=== PATIENT | female | born 1935 | race Caucasian/White ===

== ENCOUNTER 2020-04-10 02:22 | Observation (INO) | payer MEDICARE, OTHER, SELFPAY ==
[2020-04-10] VITALS (9 sets, daily range): BP systolic 124–154; BP diastolic 55–90; PULSE 62–89; RESP 15–20; TEMP 36.1–36.9; O2SAT 95–100; BMI 28.6
--- NOTE | ~2020-04-10 | CT_ITS ---
EXAMINATION: CT abdomen pelvis w con DATE: 04/10/2020 06:11 INDICATION: Rectal bleeding TECHNIQUE: Computed tomography (CT) of the abdomen and pelvis was performed with 100 cc Omnipaque 350 intravenous contrast. The dose-length product was 479.02 mGy-cm. Automated exposure control and iter ative reconstruction technique were employed. COMPARISON: CT dated 05/01/2016 FINDINGS: Cardiomegaly. There is atherosclerosis. Bibasilar dependent atelectasis. No evidence for ao rtic aneurysm. The liver, spleen, pancreas, adrenal glands are unremarkable. Gallbladder is present. There are bilat eral renal cysts, largest in the right kidney measuring 2.1 cm. Gallbladder is present. There is abno rmal thickening of the stomach, suspicious for gastritis. There is a discrete rectal artery entering the mucosa which may represent superior rectal artery iker ing from the inferior mesenteric artery. This could be a source of rectal hemorrhage. There is a soft tissue nodule in the right gluteal fold, nonspecific. Tiny sclerotic lesion right ilium, likely bone island. IMPRESSION: 1. Abnormal thickening of the gastric wall, suspicious for gastritis. 2: Discrete rectal artery entering the mucosa which may represent superior rectal artery arising from the inferior mesenteric artery. This could be a source of rectal hemorrhage. Reviewed, dictated and finalized at location A. IMPRESSION: 1. Abnormal thickening of the gastric wall, suspicious for gastritis. 2: Discrete rectal artery entering the mucosa which may represent superior rect al artery arising from the inferior mesenteric artery. This could be a source o f rectal hemorrhage.
--- NOTE | 2020-04-10 02:35 | ED.GENADULT ---
HPI - General Adult General Chief complaint: Unspecified <Scotty Caraballo MD - Last Filed: 04/13/20 14:14> Stated complaint: hematuria <Scotty Caraballo MD - Last Filed: 04/13/20 14:14> Time Seen by Provider: 04/10/20 02:35 <Scotty Caraballo MD - Last Filed: 04/13/20 14:14> History of Present Illness HPI narrative: 84 yo female presents from home for hematuria. She reports that she has noticed blood in her urine the past couple of days. Tonight there was more. She reports urinary frequency, which is normal for her. No dyuria, hematuria. She is on xarelto. <Scotty Caraballo MD - Last Filed: 04/13/20 14:14> Related Data Home medications: Home Medications Medication Instructions Recorded Confirmed ascorbic acid (vitamin C) 500 mg 500 mg PO DAILY 08/14/19 04/10/20 capsule,extended release calcium carbonate-vitamin D3 600 600 tablet PO DAILY 08/14/19 04/10/20 mg(1,500 mg)-400 unit chewable tablet cholecalciferol (vitamin D3) 25 1,000 unit PO DAILY 08/14/19 04/10/20 mcg (1,000 unit) capsule magnesium 200 mg tablet 200 mg PO DAILY 08/14/19 04/10/20 metoprolol succinate 50 mg 50 mg PO DAILY 08/14/19 04/10/20 tablet,extended release 24 hr rivaroxaban 20 mg tablet 20 mg PO QPM 08/14/19 04/10/20 ferrous sulfate 325 mg PO BID 04/10/20 04/10/20 furosemide 20 mg PO DAILY 04/10/20 04/10/20 <Scotty Caraballo MD - Last Filed: 04/13/20 14:14> Allergies/adverse reactions: Allergies Allergy/AdvReac Type Severity Reaction Status Date / Time memantine Allergy Unknown Unknown Verified 04/10/20 12:17 <Scotty Caraballo MD - Last Filed: 04/13/20 14:14> Review of Systems Review of Systems: All systems reviewed & are unremarkable except as noted in HPI and below <Scotty Caraballo MD - Last Filed: 04/13/20 14:14> Constitutional: Constitutional: Denies fever(s) <Scotty Caraballo MD - Last Filed: 04/13/20 14:14> Cardiovascular: Cardiovascular: Denies chest pain <Scotty Caraballo MD - Last Filed: 04/13/20 14:14> Respiratory: Respiratory: Denies dyspnea <Scotty Caraballo MD - Last Filed: 04/13/20 14:14> Gastrointestinal: Gastrointestinal: Denies abdominal pain and Denies nausea <Scotty Caraballo MD - Last Filed: 04/13/20 14:14> Neurologic: Denies dizziness and Denies weakness <Scotty Caraballo MD - Last Filed: 04/13/20 14:14> [facility] Past Medical History Medical History: Medical History (Updated 04/11/20 @ 14:13 by Anne Chauhan PA-C) Afib Chronic diastolic CHF (congestive heart failure) Essential (primary) hypertension History of breast cancer History of gastric ulcer Iron deficiency anemia <Scotty Caraballo MD - Last Filed: 04/13/20 14:14> Surgical History Surgical History: Surgical History (Updated 04/10/20 @ 14:55 by Eleonora Narayan NP) H/O cataract extraction History of appendectomy History of hysterectomy History of left mastectomy History of tonsillectomy and adenoidectomy <Scotty Caraballo MD - Last Filed: 04/13/20 14:14> Family History Family History: Family History (Updated 04/10/20 @ 14:56 by Eleonora Narayan NP) Father Congestive heart failure Heart disease <Scotty Caraballo MD - Last Filed: 04/13/20 14:14> Social History Social History: Social History (Updated 04/10/20 @ 15:01 by Eleonora Narayan NP) Social History: the patient lives at [facility] living with her . Her is listed as a durable power commonwealth attorney for healthcare as well as her daughter. The patient has a modified code where she will allow CPR but does not want to be on a ventilator she is a DNI. 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 She is a lifelong nonsmoker no alcohol marijuana or illicit drugs. Smoking status: Never smoker Second hand tobacco smoke exposure: No Alcohol intake: never Substance use: never Substance use ty
[2020-04-10 03:19] LABS: Add Urine Microscopic? YES; Appearance Urine Clear (Clear); Bilirubin Urine Negative (Negative); Blood Urine Negative (Negative); Color Urine Yellow (Yellow); Glucose Urine UA Negative (Negative); Ketones Urine Negative (Negative); Leukocyte Esterase Ur Negative LEU/UL (Negative); Nitrate Urine Negative (Negative); Protein Urine Negative (Negative); Specific Grav Ur 1.014 (1.001-1.035); Squamous Epithelial Cell Urine Rare /hpf (Few); Urobilinogen Urine Negative mg/dL (<2.0); WBC Urine 0-3 /hpf
[2020-04-10 04:04] LABS: Basophils Absolute Auto 0.1 K/mm3 (0.0-0.1); Basophils Percent Auto 0.8 % (0.2-1.2); Eosinophils Absolute Auto 0.2 K/mm3 (0-0.3); Eosinophils Percent Auto 3.8 % (0-4.4); Hematocrit 39.5 % (37.0-47.0); Hemoglobin 13.4 g/dL (12.0-15.0); Immature Granulocyte Absolute 0.02 K/mm3 (0.00-0.031); Immature Granulocyte Percent A 0.3 % (0-0.5); Lymphocytes Absolute Auto 0.78 K/mm3 (0.9-3.2); Lymphocytes Percent Auto 12.9 % (18.3-44.2); Mean Corpuscular HGB Conc 33.9 g/dl (32-36); Mean Corpuscular Hemoglobin 30.5 pg (26-34); Mean Platelet Volume 9.3 fl (7.4-10.4); Monocytes Percent Auto 16.6 % (2.6-8.5); Neutrophils Percent Auto 65.6 % (45.5-73.1); Platelet Count Result 214 k/mm3 (150-375); Red Blood Count 4.39 M/mm3 (4.2-5.4); White Blood Count 6.1 K/mm3 (4.5-10.0)
[2020-04-10 04:15] LABS: INR 2.6; Prothrombin Time 27.1 Seconds (11.1-14.7)
[2020-04-10 04:16] LABS: Partial Thromboplastin Time 41.9 SECONDS (22.3-36.8)
[2020-04-10 04:29] LABS: Anion Gap 4 mmol/L (8-16); Blood Urea Nitrogen 21 mg/dL (7-17); Calcium 8.9 mg/dL (8.4-10.2); Carbon Dioxide 25 mmol/L (22-30); Chloride 100 mmol/L (98-107); Estimated CRCL calculation 40 ml/min; Estimated Glomerular Filt Rate > 60; Glucose 107 mg/dL (65-105); Potassium 4.1 mmol/L (3.4-5.0); Sodium 129 mmol/L (137-145)
[2020-04-10] MEDS: PANTOPRAZOLE SODIUM IV 40 MG VIAL IV PUSH (10:03)
--- NOTE | 2020-04-10 10:07 | WPDGICN ---
Assessment and Plan Assessment and plan (1) Rectal bleeding: Code(s): K62.5 - Hemorrhage of anus and rectum Status: Acute Assessment and Plan: Patient has rectal bleeding. Known to have hemorrhoids. Likely this is aggravated by or Xarelto anticoagulation. Plan is to hold Xarelto. Continue monitor hemoglobin. Elective colonoscopy is advised after she is no longer on anticoagulation. Particular because of the unusual CT scan report (2) Afib: Code(s): I48.91 - Unspecified atrial fibrillation Status: Acute (3) Current use of correction anticoagulation: Code(s): Z79.01 - intermodal truck driver (current) use of anticoagulants Status: Acute GI Consult Note Consult date/time: 04/10/20 10:07 HPI: Annamarie Belle is a 84 year old female I am asked to see for hematochezia. Patient reports over the last 2-3 days that when she has a bowel movement and urinates the toilet bowl as red. She initially was unsure whether this emanated from her rectum or from the urine. She denies any abdominal or rectal pain. In the past she has had occasional bright red blood per rectum attributed to hemorrhoids. She states this persisted longer than that. She describes it as bright red. She does have an underlying history of atrial fibrillation for which she is chronically on Xarelto anticoagulation. In the emergency room a CT scan was performed which raise the question of a rectal prominent rectal artery Her hemoglobin was noted to be normal. Review of Systems Review of Systems: All systems reviewed & are unremarkable except as noted in HPI and below PMFSH Past Medical History Medical History Afib History of breast cancer Iron deficiency anemia Surgical History Surgical History History of hysterectomy History of left mastectomy Family History Family History Father Family history of coronary artery disease Social History Social History Smoking status: Never smoker Tobacco type: cigarettes Second hand tobacco smoke exposure: No Alcohol intake: never Substance use: never Substance use type: does not use Gender identity (if verbalized by the patient): Female Meds Home Medications and Allergies Home Medications Medication Instructions Recorded Confirmed Type ascorbic acid (vitamin C) 500 mg 500 mg PO DAILY 08/14/19 History capsule,extended release calcium carbonate-vitamin D3 600 tablet PO 08/14/19 History mg(1,500 mg)-400 unit chewable tablet cholecalciferol (vitamin D3) 25 1,000 unit PO DAILY 08/14/19 History mcg (1,000 unit) capsule magnesium 200 mg tablet 200 mg PO DAILY 08/14/19 History metoprolol succinate 50 mg 50 mg PO DAILY 08/14/19 History tablet,extended release 24 hr rivaroxaban 20 mg tablet 20 mg PO QPM 08/14/19 History potassium chloride 20 mEq 20 meq PO DAILY #90 tablet 10/31/19 Rx tablet,extended release(part/cryst) ferrous sulfate 324 mg (65 mg 324 mg PO DAILY #60 tablet 01/26/20 Rx iron) tablet,delayed release furosemide 20 mg tablet See Rx Instructions .ROUTE 01/27/20 Rx .COMPLEX #90 tablet omeprazole 20 mg tablet,delayed 20 mg PO DAILY #90 tablet 03/15/20 Rx release Allergies Allergy/AdvReac Type Severity Reaction Status Date / Time memantine Allergy Unknown Unknown Verified 02/20/20 09:59 Vital Signs Vital Signs - 24 hr 04/10/20 02:22 04/10/20 04:26 04/10/20 07:12 Temperature 98.4 F Pulse Rate 67 62 79 Respiratory Rate 16 16 20 Blood Pressure 138/55 L 124/68 141/86 H Pulse Oximetry 96 97 95 04/10/20 09:02 04/10/20 10:04 Temperature Pulse Rate 89 70 Respiratory Rate 20 20 Blood Pressure 154/90 H 142/72 H Pulse Oximetry 96 95 Exam Narrative: Exam Narrative: Physic
[2020-04-10 10:30] LABS: Hematocrit 42.7 % (37.0-47.0); Hemoglobin 14.6 g/dL (12.0-15.0)
--- NOTE | 2020-04-10 11:40 | ADMGEN ---
This patient, Annamarie Belle, was admitted to 2 Medical Room 260-. Patient/family oriented to hospital policies and general routines including ID bracelet, bed and alarms, visiting hours, pain management, procedures, bathroom and other care routines, personal items, smoking policy, room service/diet, and visiting hours. Valuables list has been completed. Information on how to activate the Rapid Response Team has been discussed. Patient/Family are encouraged to report perceived risks to care and to ask questions if they do not understand what they are told or what they should do.
[2020-04-10] MEDS: SODIUM CHLORIDE 0.9% IV 1,000 ML 125 ML IV CONT ×2 (11:45→20:54)
--- NOTE | 2020-04-10 14:45 | PM.IMHP ---
H&P: HPI History of Present Illness Date/Time: 04/10/20 14:45 Chief complaint: Rectal bleed Narrative: Annamarie Belle is a 84 year old female Who stated that she has had a history of having hemorrhoids in the past. she stated that she has not had a colonoscopy and does not want a colonoscopy. She stated that she stooled have colonoscopy. The patient stated that she had 3-4 bright red bloody stools over the last 24 hours. She said that she has had bleeding from her hemorrhoids in the past but has not had this much blood from her hemorrhoids in the past. She said that when she sat down to urinate that the blood was just pouring out of her from her rectum. It was going down her legs. The patient's H&H remains the same it is within normal limits. Vital signs are stable with last reading being 145/67. GI consult so was placed and Dr. talbot has seen her already and has noted that he feels that this most likely is due to her hemorrhoids. The patient had a CT of her abdomen and pelvis which was read per Radiology as abnormal thickening of the gastric wall suspicious for gastritis. Discrete rectal artery entering the mucosa which may represent superior rectal arterial arising from the inferior mesenteric artery. This could be a source of rectal hemorrhage. It was were reported to me that GI consult had been aware of this CT scan. Patient was started on IV Pepcid and has not had any further bleeding. The patient is a full code with a DNI and she stated she does not want any invasive procedures either. She stated she would not want a central line nor which she want a colonoscopy either. The patient has been on Xarelto for AFib and that is currently on hold. She is on a clear liquid diet and tolerating it well. Patient is being admitted as observation to medical floor date of service is 04/10/2020 Review of Systems Review of Systems: All systems reviewed & are unremarkable except as noted in HPI and below Constitutional: Constitutional: Reports as per HPI and Reports no additional constitutional complaints Eyes: Eyes: Reports as per HPI and Reports no additional eye complaints ENT: Reports system reviewed and no additional complaints, except as documented and Reports Normal hearing present Cardiovascular: Cardiovascular: Reports no additional cardiovascular complaints Respiratory: Respiratory: Reports no additional respiratory complaints and Reports no additional respiratory complaints Gastrointestinal: Gastrointestinal: Reports as per HPI and Reports no additional gastrointestinal complaints Musculoskeletal: Musculoskeletal: Reports no additional musculoskeletal complaints Integumentary/Breasts: Skin/Breast: Reports system reviewed and no additional complaints, except as docu and Reports as per HPI Neurologic: Reports system reviewed and no additional complaints, except as documented, Reports as per HPI and Reports Normal hearing present Psychiatric: Psychiatric: Reports no additional psychiatric complaints and Reports as per HPI Endocrine: Endocrine: Reports no additional endocrine complaints Hematologic/Lymphatic: Hematologic/Lymphatic: Reports no additional hematologic/lymphatic complaints Allergic/Immunologic: Allergic/Immunologic: Reports no additional allergic/immunologic complaints [facility] Past Medical History Medical History (Updated 04/10/20 @ 14:55 by Eleonora Narayan NP) Afib Chronic diastolic CHF (congestive heart failure) Essential (primary) hypertension History of breast cancer History of gastric ulcer Iron deficiency anemia Surgical History Surgical History (Updated 04/10/20 @ 14:55 by Eleonora Narayan NP) H/O cataract extraction History of appendectomy History of hysterectomy History of left mastectomy History of tonsillectomy and adenoidectomy Family History Family History (Updated 04/10/20 @ 14:56 by Eleonora Narayan NP) Father Congestive heart failure Heart disease Social History
[2020-04-10 16:06] LABS: Hematocrit 39.5 % (37.0-47.0); Hemoglobin 13.5 g/dL (12.0-15.0)
[2020-04-10 21:58] LABS: Hematocrit 37.9 % (37.0-47.0); Hemoglobin 13.1 g/dL (12.0-15.0)
--- NOTE | 2020-04-10 23:45 | PC.NURSE ---
Patient c/o needing attention and doesn't like being in the room alone. I have made multiple attempts to make her feel comfortable and be in the room when I can. I have made her aware that she is in a private room and it is night time in the hospital with generally less people and noise as there is during the day. She continues to ask for me and abril Go to stay in the room with her. While I won't be able to remain in the room at all times I will continue to make efforts to make sure she doesn't feel alone while she is here.
[2020-04-11] MEDS: SODIUM CHLORIDE 0.9% IV 1,000 ML 125 ML IV CONT ×3 (04:40→23:06)
[2020-04-11 04:55] LABS: Hemoglobin 12.9 g/dL (12.0-15.0)
[2020-04-11 05:42] LABS: Alanine Aminotransferase 18 U/L (4-35); Albumin Level 3.2 g/dL (3.5-5.1); Alkaline Phosphatase 63 U/L (38-126); Anion Gap 8 mmol/L (8-16); Aspartate Amino Transferase 23 U/L (14-36); Bilirubin,Total 1.3 mg/dL (0.2-1.3); Blood Urea Nitrogen 10 mg/dL (7-17); Calcium 8.6 mg/dL (8.4-10.2); Carbon Dioxide 22 mmol/L (22-30); Chloride 104 mmol/L (98-107); Estimated CRCL calculation 58 ml/min; Estimated Glomerular Filt Rate > 60; Glucose 123 mg/dL (65-105); Lactate Dehydrogenase 279 U/L (313-618); Magnesium 1.9 mg/dL (1.6-2.3); Potassium 3.8 mmol/L (3.4-5.0); Sodium 134 mmol/L (137-145)
[2020-04-11 06:00] VITALS: BP 149/72; PULSE 79; RESP 18; TEMP 36.6; O2SAT 98
[2020-04-11 08:01] VITALS: PULSE 84
[2020-04-11] MEDS: METOPROLOL SUCCINATE EXT REL 50 MG TABCR PO (08:01)
[2020-04-11] MEDS: PANTOPRAZOLE SODIUM IV 40 MG VIAL IV PUSH (08:01)
--- NOTE | 2020-04-11 08:58 | WPDGIPROGNO ---
Progress Note: A&P Additional Plan Patient continues to notice rectal bleeding. She denies abdominal pain. Angry that she has not been allowed to eat. Physical exam reveals her to be alert and comfortable at rest. She is anicteric. Lungs are clear. Heart without murmur. Abdomen bowel sounds are present soft nontender with no organomegaly. Rectal without any significant lesions. Labs reveal hemoglobin 12.9, hematocrit 38, MCV 90. All stable. Impression 1. Rectal bleeding. Patient known to have hemorrhoids this is most likely etiology for bleeding. Bleeding aggravated by Xarelto anticoagulation. Hemoglobin remains normal. I have advised patient evaluation with colonoscopy would be preferred. She adamantly refuses this at present. 2. Prominent rectal artery seen on CT scan . may be a spurious finding. By itself is not pathological. But perhaps contributes to some of her bleeding. 3. Xarelto anticoagulation. Because of atrial fibrillation. Xarelto should be held because of significant bleeding at this time. Subjective Date/time seen: 04/11/20 08:58 Objective Data Vital Signs Vital Signs: Vital Signs - 24 hr 04/10/20 09:02 04/10/20 10:04 04/10/20 11:20 Temperature Pulse Rate 89 70 70 Respiratory Rate 20 20 20 Blood Pressure 154/90 H 142/72 H 142/72 H Pulse Oximetry 96 95 95 04/10/20 12:20 04/10/20 14:00 04/10/20 22:00 Temperature 97.1 F L 97.6 F 97.0 F L Pulse Rate 72 72 79 Respiratory Rate 16 15 18 Blood Pressure 145/67 H 145/76 H 154/72 H Pulse Oximetry 100 98 98 04/11/20 06:00 04/11/20 08:01 Temperature 97.8 F Pulse Rate 79 84 Respiratory Rate 18 Blood Pressure 149/72 H Pulse Oximetry 98 Intake/Output Intake/Output: Intake & Output 04/08/20 04/09/20 04/10/20 04/11/20 23:59 23:59 23:59 23:59 Intake Total 1900 1500 Output Total 1300 Balance 1900 200 Meds/Results Medications: Active Medications Generic Name Dose Route Start Last Admin Trade Name Freq PRN Reason Stop Dose Admin Acetaminophen 1,000 mg in 100 mls @ 400 mls/hr 04/10/20 09:41 Ofirmev 1,000 Mg Ivpb IVPB 04/11/20 09:42 Q6H PRN Mild Pain (1-3) or Fever Sodium Chloride 1,000 mls @ 125 mls/hr 04/10/20 09:45 04/11/20 04:40 Normal Saline Iv IV CONT 125 mls/hr .Q8H MARIO Administration Metoprolol Succinate 50 mg 04/11/20 09:00 04/11/20 08:01 Metoprolol Succinate Ext Rel 50 Mg Tabcr PO 50 mg DAILY MARIO Administration Pantoprazole Sodium 40 mg 04/11/20 09:00 04/11/20 08:01 Pantoprazole Sodium Iv 40 Mg Vial IV PUSH 40 mg QAM MARIO Administration Radiology Results: ITS Impressions Abdomen/Pelvis CT 04/10/20 08:19 IMPRESSION: 1. Abnormal thickening of the gastric wall, suspicious for gastritis. 2: Discrete rectal artery entering the mucosa which may represent superior rectal artery arising from the inferior mesenteric artery. This could be a source of rectal hemorrhage. Labs Labs: Laboratory Results - last 24 hr 04/10/20 04/10/20 04/10/20 10:21 15:46 21:46 Hgb 14.6 13.5 13.1 Hct 42.7 39.5 37.9 Sodium Potassium Chloride Carbon Dioxide Anion Gap BUN Creatinine Estim Creat Clear Calc Estimated GFR Glucose Calcium Magnesium Ferritin Total Bilirubin AST ALT Alkaline Phosphatase Lactate Dehydrogenase Total Protein Albumin TSH (Reflex) 04/11/20 04/11/20 04/11/20 04:06 04:06 04:06 Hgb 12.9 Hct 38.0 Sodium 134 L Potassium 3.8 Chloride 104 Carbon Dioxide 22 Anion Gap 8 BUN 10 D Creatinine 0.60 L Estim Creat Clear Calc 58 Estimated GFR > 60 Glucose 123 H Calcium 8.6 Magnesium 1.9 Ferritin 33.80 Total Bilirubin 1.3 AST 23 ALT 18 Alkaline Phosphatase 63 Lactate Dehydrogenase 279 L Total Protein 6.0 L Albumin 3.2 L TSH (Reflex) 1.630
--- NOTE | 2020-04-11 12:47 | PM.IMPN ---
Progress Note: A&P Assessment and Plan (1) Rectal bleeding: Code(s): K62.5 - Hemorrhage of anus and rectum Status: Acute Assessment and Plan: Patient presents with bright red blood per rectum. She has a known history of hemorrhoids. Suspect this is contributing to bleeding. She is on long-term anticoagulation with Xarelto for A fib, which is on hold at this time. Patient is stable for discharge. Hemoglobin has remained quite stable. She has been seen by GI - appreciate Dr Calderon's input. Patient adamantly declines colonoscopy. I have nothing further to offer her in the hospital at this time. She can follow up with Dr Calderon outpatient for colonoscopy should she change her mind. She needs COVID testing prior to discharging back to her facility so she will have to stay overnight; anticipate discharge tomorrow. (2) Essential (primary) hypertension: Code(s): I10 - Essential (primary) hypertension Status: Chronic Assessment and Plan: BP is stable. Continue her home metoprolol. Monitor BP and adjust treatment as needed. (3) Chronic diastolic CHF (congestive heart failure): Code(s): I50.32 - Chronic diastolic (congestive) heart failure Status: Chronic Assessment and Plan: Appears euvolemic at this time. Continue her home beta-blockade and Lasix. Monitor I&Os. (4) Afib: Qualifiers: Atrial fibrillation type: unspecified chronic Qualified Code(s): I48.20 - Chronic atrial fibrillation, unspecified Code(s): I48.91 - Unspecified atrial fibrillation Status: Chronic Assessment and Plan: Chronic AFib rate controlled on her home metoprolol. Xarelto is held due to rectal bleeding. Subjective Date/time seen: 04/11/20 0915 Interval history: Ms. Belle is an 84yo F admitted for rectal bleeding. She is feeling well today but did have some bleeding with a bowel movement this morning. She denies dizziness, lightheadedness, nausea, vomiting or abdominal pain. She was able to tolerate some clear liquids for breakfast this morning without issues. She denies chest pain or shortness of breath. She is able to answer all of my questions appropriately but does seem to have some degree of short-term memory deficit in casual conversation. Review of Systems Review of Systems: All systems reviewed & are unremarkable except as noted in HPI and below Exam Narrative: Exam Narrative: General: Elderly female resting sitting up in bed in no acute distress. HEENT: Normocephalic, EOMI, oral mucosa moist. Cardiovascular: Rate and rhythm are regular. Respiratory: Lungs clear to auscultation in all wilson. Non-labored breathing. Abdomen: Soft, non-tender, non-distended, bowel sounds present. Extremities: Peripheral pulses intact. 1+ pitting edema to ADWOA lower extremities below the knees. Neuro: No focal neurological deficits. Speech is clear. Objective Data Vital Signs Vital Signs: Last Vital Signs Temp 97.8 F 04/11/20 06:00 Pulse 84 04/11/20 08:01 Resp 18 04/11/20 06:00 BP 149/72 H 04/11/20 06:00 Pulse Ox 98 04/11/20 06:00 Intake/Output Intake/Output: Intake & Output 04/08/20 04/09/20 04/10/20 04/11/20 23:59 23:59 23:59 23:59 Intake Total 1900 2220 Output Total 1300 Balance 1900 920 Meds/Results Medications: Active Medications Generic Name Dose Route Start Last Admin Trade Name Freq PRN Reason Stop Dose Admin Sodium Chloride 1,000 mls @ 125 mls/hr 04/10/20 09:45 04/11/20 04:40 Normal Saline Iv IV CONT 125 mls/hr .Q8H MARIO Administration Metoprolol Succinate 50 mg 04/11/20 09:00 04/11/20 08:01 Metoprolol Succinate Ext Rel 50 Mg Tabcr PO 50 mg DAILY MARIO Administration Pantoprazole Sodium 40 mg 04/11/20 09:00 04/11/20 08:01
[2020-04-11 14:00] VITALS: BP 140/73; PULSE 66; RESP 15; TEMP 36.9; O2SAT 97
[2020-04-11] MEDS: FERROUS SULFATE 324 MG TABLET PO (17:01)
[2020-04-11 22:00] VITALS: BP 153/76; PULSE 63; RESP 18; TEMP 36.1; O2SAT 98
--- NOTE | 2020-04-12 05:17 | PC.NURSE ---
Patient continues to have multiple anxious complaints. She is aware of where she is only some of the time and thinks we are keeping her here and refuses to let me help her dial phone calls to family members. Patient states that we are doing something to the phones and not allowing her to use them. I have tried to help her multiple times with no success. She is up to the chair, with a chair alarm, now because she refused to lay in bed and continued to set her alarm off. I will continue to monitor her and make sure she is safe and as comfortable as I can.
[2020-04-12 05:44] LABS: Basophils Absolute Auto 0.1 K/mm3 (0.0-0.1); Basophils Percent Auto 0.8 % (0.2-1.2); Eosinophils Absolute Auto 0.2 K/mm3 (0-0.3); Eosinophils Percent Auto 2.7 % (0-4.4); Hematocrit 38.4 % (37.0-47.0); Hemoglobin 13.1 g/dL (12.0-15.0); Immature Granulocyte Absolute 0.06 K/mm3 (0.00-0.031); Immature Granulocyte Percent A 0.9 % (0-0.5); Lymphocytes Absolute Auto 0.67 K/mm3 (0.9-3.2); Lymphocytes Percent Auto 10.5 % (18.3-44.2); Mean Corpuscular HGB Conc 34.1 g/dl (32-36); Mean Corpuscular Hemoglobin 30.7 pg (26-34); Mean Corpuscular Volume 89.9 fl (80-100); Mean Platelet Volume 9.3 fl (7.4-10.4); Monocytes Absolute Auto 0.8 K/mm3 (0.1-0.6); Monocytes Percent Auto 12.3 % (2.6-8.5); Neutrophils Absolute Auto 4.7 K/mm3 (1.3-6.7); Neutrophils Percent Auto 72.8 % (45.5-73.1); Platelet Count Result 220 k/mm3 (150-375); Red Blood Count 4.27 M/mm3 (4.2-5.4); Red Cell Distribution Width 14.2 % (11.5-14.5); White Blood Count 6.4 K/mm3 (4.5-10.0)
[2020-04-12 06:00] VITALS: BP 148/67; PULSE 77; RESP 18; TEMP 36.7; O2SAT 98
[2020-04-12] MEDS: SODIUM CHLORIDE 0.9% IV 1,000 ML 125 ML IV CONT (07:53)
[2020-04-12 08:00] VITALS: PULSE 64
[2020-04-12] MEDS: FERROUS SULFATE 324 MG TABLET PO (08:00)
[2020-04-12] MEDS: MAGNESIUM OXIDE 200 MG TABLET PO (08:00)
[2020-04-12] MEDS: PANTOPRAZOLE SODIUM IV 40 MG VIAL IV PUSH (08:00)
[2020-04-12] MEDS: FUROSEMIDE 20 MG TABLET PO (08:00)
[2020-04-12] MEDS: METOPROLOL SUCCINATE EXT REL 50 MG TABCR PO (08:00)
--- NOTE | 2020-04-12 11:00 | WPDGIPROGNO ---
Progress Note: A&P Additional Plan Patient continues to note rectal bleeding. Occasional bright red blood per rectum with bowel movement. She denies any abdominal or rectal pain. Physical exam reveals abdomen to be soft nontender with no organomegaly. Digital rectal exam unremarkable. Labs reveal hemoglobin stable. Hemoglobin 13.1, hematocrit 38.4, MCV 89. Impression 1. Rectal bleeding. Clinically suspicious for hemorrhoids. Patient unwilling to undergo colonoscopy. Currently has stable and normal hematocrit. Long discussion with patient today regarding colonoscopy to further define source of bleeding as well as for treatment. She continues to refuse at this time. Plan for high-fiber diet. Hemorrhoidal creams will have limited benefit for rectal bleeding from hemorrhoids. Suggest monitoring hemoglobin intermittently. Should patient agree to a colonoscopy this can be arranged electively as an outpatient. Subjective Date/time seen: 04/12/20 11:00 Objective Data Vital Signs Vital Signs: Vital Signs - 24 hr 04/11/20 14:00 04/11/20 22:00 04/12/20 06:00 Temperature 98.4 F 96.9 F L 98.0 F Pulse Rate 66 63 77 Respiratory Rate 15 18 18 Blood Pressure 140/73 153/76 H 148/67 H Pulse Oximetry 97 98 98 04/12/20 08:00 Temperature Pulse Rate 64 Respiratory Rate Blood Pressure Pulse Oximetry Intake/Output Intake/Output: Intake & Output 04/09/20 04/10/20 04/11/20 04/12/20 23:59 23:59 23:59 23:59 Intake Total 1900 4730 1440 Output Total 2350 150 Balance 1900 2380 1290 Meds/Results Medications: Active Medications Generic Name Dose Route Start Last Admin Trade Name Francisq PRN Reason Stop Dose Admin Ferrous Sulfate 324 mg 04/11/20 17:00 04/12/20 08:00 Ferrous Sulfate 324 Mg Tablet PO 324 mg BID MARIO Administration Furosemide 20 mg 04/12/20 09:00 04/12/20 08:00 Furosemide 20 Mg Tablet PO 20 mg DAILY MARIO Administration Sodium Chloride 1,000 mls @ 125 mls/hr 04/10/20 09:45 04/12/20 07:53 Normal Saline Iv IV CONT 125 mls/hr .Q8H MARIO Administration Magnesium Oxide 200 mg 04/12/20 09:00 04/12/20 08:00 Magnesium Oxide 200 Mg Tablet PO 200 mg DAILY MARIO Administration Metoprolol Succinate 50 mg 04/11/20 09:00 04/12/20 08:00 Metoprolol Succinate Ext Rel 50 Mg Tabcr PO 50 mg DAILY MARIO Administration Pantoprazole Sodium 40 mg 04/11/20 09:00 04/12/20 08:00 Pantoprazole Sodium Iv 40 Mg Vial IV PUSH 40 mg QAM MARIO Administration Radiology Results: ITS Impressions Abdomen/Pelvis CT 04/10/20 08:19 IMPRESSION: 1. Abnormal thickening of the gastric wall, suspicious for gastritis. 2: Discrete rectal artery entering the mucosa which may represent superior rectal artery arising from the inferior mesenteric artery. This could be a source of rectal hemorrhage. Labs Labs: Laboratory Results - last 24 hr 04/12/20 05:20 WBC 6.4 RBC 4.27 Hgb 13.1 Hct 38.4 MCV 89.9 MCH 30.7 MCHC 34.1 RDW 14.2 Plt Count 220 MPV 9.3 Immature Gran % (Auto) 0.9 H Neut % (Auto) 72.8 Lymph % (Auto) 10.5 L [place] % (Auto) 12.3 H Eos % (Auto) 2.7 Baso % (Auto) 0.8 Lymph # (Auto) 0.67 L [place] # (Auto) 0.8 H Eos # (Auto) 0.2 Baso # (Auto) 0.1 Abs Immat Gran (auto) 0.06 H Absolute Neuts (auto) 4.7 Absolute Nucleated RBC 0.0 Nucleated RBC % 0.0
[2020-04-12 14:08] LABS: SARS-CoV-2 RNA PCR Negative
--- NOTE | 2020-04-12 19:10 | PM.DS ---
DS: Admitting Diagnosis Admitting Diagnosis Admitting Diagnosis: Rectal bleed DS: Discharge Diagnosis Discharge Diagnosis (1) Rectal bleeding: Code(s): K62.5 - Hemorrhage of anus and rectum Status: Acute Assessment and Plan: Date of Admission 04/10/20 Date of Discharge/DOS 04/12/20 Ms. Belle is an 84yo F with history of hypertension, chronic diastolic CHF, atrial fibrillation on long-term anticoagulation with Xarelto who presented to the ED for evaluation of what she believed was hematuria, after further examination was found to be rectal bleeding. She was evaluated by GI, Dr. Calderon. Colonoscopy was recommended, patient adamantly declines. She has a known history of hemorrhoids and it is suspected that this could be contributing to bleeding. Hgb and hematocrit were stable throughout observation. Prior to discharge, she has tolerated a diet and had bowel movements without further bleeding. Her Xarelto has been on hold during observation due to rectal bleeding. She is instructed to continue holding her Xarelto until short interval follow-up with PCP next week. Discharge COVID screening is negative. She is hemodynamically stable for discharge on 04/12/2020 back to her assisted living facility with instructions to follow-up with PCP next week and repeat CBC to monitor H&H. She is given Dr. Calderon's contact information should she change her mind about a colonoscopy, and educated on return to ED instructions for any further bleeding. Patient presents with bright red blood per rectum. She has a known history of hemorrhoids. Suspect this is contributing to bleeding. She is on long-term anticoagulation with Xarelto for A fib, which is on hold at this time. Patient is stable for discharge. Hemoglobin has remained quite stable. She has been seen by GI - appreciate Dr Calderon's input. Patient adamantly declines colonoscopy. She can follow up with Dr Calderon outpatient for colonoscopy should she change her mind. (2) Essential (primary) hypertension: Code(s): I10 - Essential (primary) hypertension Status: Chronic Assessment and Plan: BP is stable maintained on her home metoprolol. (3) Chronic diastolic CHF (congestive heart failure): Code(s): I50.32 - Chronic diastolic (congestive) heart failure Status: Chronic Assessment and Plan: Appears euvolemic at this time. Continue her home beta-blockade and Lasix. (4) Afib: Qualifiers: Atrial fibrillation type: unspecified chronic Qualified Code(s): I48.20 - Chronic atrial fibrillation, unspecified Code(s): I48.91 - Unspecified atrial fibrillation Status: Chronic Assessment and Plan: Chronic AFib rate controlled on her home metoprolol. Xarelto is held due to rectal bleeding. DS: Summary Time Spent with Patient Time attestation: Total time spent providing and/or coordinating discharge services: 35 minutes Exam Narrative: Exam Narrative: General: Elderly female resting sitting up in bed in no acute distress. HEENT: Normocephalic, EOMI, oral mucosa moist. Cardiovascular: Rate and rhythm are regular. Respiratory: Lungs clear to auscultation in all wilson. Non-labored breathing. Abdomen: Soft, non-tender, non-distended, bowel sounds present. Extremities: Peripheral pulses intact. 1+ pitting edema to ADWOA lower extremities below the knees. Neuro: No focal neurological deficits. Speech is clear. DS: Data Data Completed and Pending Labs on day of discharge: Last Vital Signs Temp 98.0 F 04/12/20 06:00 Pulse 64 04/12/20 08:00 Resp 18 04/12/20 06:00 BP 148/67 H 04/12/20 06:00 Pulse Ox 98 04/12/20 06:00 ITS Impressions Abdomen/Pelvis CT 04/10/20 08:19 IMPRESSI
== END 2020-04-12 16:15 ==
LOC: ANHED 08:44 → ANH2MED 10:55
PROVIDERS: Emergency Medicine; Nurse Practitioner; Physician Assistant; Admitting Provider Family Medicine; Emergency Provider Emergency Medicine; PCP Family Medicine; Visit Provider Family Medicine
DX: K62.5 Hemorrhage of anus and rectum (principal); K64.9 Unspecified hemorrhoids; I11.0 Hypertensive heart disease with heart failure; I50.32 Chronic diastolic (congestive) heart failure; I48.20 Chronic atrial fibrillation, unspecified; D50.9 Iron deficiency anemia, unspecified; Z85.3 Personal history of malignant neoplasm of breast; Z79.01 Long term (current) use of anticoagulants; Z20.828 Contact with and (suspected) exposure to other viral communicable diseases
CPT/HCPCS: 36415; 74177; 80048; 80053; 81001; 82728; 83615; 83735; 84443; 85014; 85018; 85025; 85610; 85730; 86850; 86900; 86901; 87635; 96361; 96374; 96376; 99285; A9270; C9113; C9803; G0378; J7030; Q9967; U0003

== ENCOUNTER 2021-04-03 17:50 | Emergency (ER) | payer MEDICARE, OTHER, SELFPAY ==
--- NOTE | ~2021-04-03 | XR_ITS ---
EXAMINATION: XR chest 2V DATE: 04/03/2021 18:36 INDICATION: Left-sided chest pain and shortness of breath TECHNIQUE: AP and lateral views of the chest are obtained. COMPARISON: 04/23/2019 FINDINGS: The lungs are free of acute opacities. There is no pleural effusion or pneumothorax. The ca rdiomediastinal silhouette is normal. There is chronic anterior wedging of multiple midthoracic verte bral bodies. Surgical clips are noted in the left axilla. IMPRESSION: 1. No acute cardiopulmonary abnormality. Reviewed, dictated and finalized at location A.
--- NOTE | ~2021-04-03 | CT_ITS ---
EXAMINATION: CTA chest PE protocol DATE: 04/03/2021 23:19 INDICATION: Left chest pain. Shortness of breath. TECHNIQUE: Computed tomography angiography (CTA) of the chest was performed with 100 mL Omnipaque-350 intravenous contrast timed to evaluate the pulmonary arteries. Coronal maximum intensity projection 3D-reconstructions were created by the technologist. Automated exposure control and iterative reconst ruction technique were employed. The dose-length product was 259.09 mGy-cm. COMPARISON: CT abdomen and pelvis 04/10/2020 FINDINGS: There is mild atelectasis in the lungs with a dependent predominance. There is diffuse smoo th septal thickening, consistent with mild pulmonary edema. There is a small pneumatocele in right lo wer lobe. No pleural effusion. Cardiomegaly is noted. There are coronary artery calcifications. No pe ricardial effusion. There is no pulmonary embolus. There is kyphosis of thoracic spine with mild frame opener ray anterior wedging of multiple vertebral bodies. There is severe thoracic spondylosis. IMPRESSION: 1. No pulmonary embolus. 2. Mild pulmonary edema. 3. Cardiomegaly. Reviewed, dictated and finalized at location A.
--- NOTE | 2021-04-03 18:00 | ECG_ITS ---
Measurements Intervals [place] Rate: 60 P: [place]: 0 QRS: -18 QRSD: 96 T: 14 QT: 419 QTc: 421 Interpretive Statements ATRIAL FIBRILLATION VOLTAGE CRITERIA FOR LVH BASELINE ARTIFACT- I, II, III, AVR, AVL ABNORMAL ECG Electronically Signed On 04-04-2021 5:44:41 CDT by Mark Burnette D.O.
[2021-04-03 18:10] VITALS: BP 150/77; PULSE 81; RESP 14; TEMP 36.6; O2SAT 98
[2021-04-03 18:20] LABS: Basophils Percent Auto 0.6 % (0.2-1.2); Eosinophils Absolute Auto 0.3 K/mm3 (0-0.3); Eosinophils Percent Auto 4.3 % (0-4.4); Hematocrit 44.4 % (37.0-47.0); Hemoglobin 14.8 g/dL (12.0-15.0); Immature Granulocyte Absolute 0.02 K/mm3 (0.00-0.031); Immature Granulocyte Percent A 0.3 % (0-0.5); Lymphocytes Absolute Auto 0.93 K/mm3 (0.9-3.2); Lymphocytes Percent Auto 14.9 % (18.3-44.2); Mean Corpuscular HGB Conc 33.3 g/dl (32-36); Mean Corpuscular Volume 93.1 fl (80-100); Monocytes Absolute Auto 0.8 K/mm3 (0.1-0.6); Monocytes Percent Auto 13.1 % (2.6-8.5); Neutrophils Absolute Auto 4.2 K/mm3 (1.3-6.7); Neutrophils Percent Auto 66.8 % (45.5-73.1); Platelet Count Result 226 k/mm3 (150-375); Red Blood Count 4.77 M/mm3 (4.2-5.4); Red Cell Distribution Width 13.3 % (11.5-14.5); White Blood Count 6.3 K/mm3 (4.5-10.0)
[2021-04-03 18:30] LABS: Anion Gap 9 mmol/L (8-16); Blood Urea Nitrogen 20 mg/dL (7-17); Calcium 9.4 mg/dL (8.4-10.2); Carbon Dioxide 24 mmol/L (22-30); Chloride 102 mmol/L (98-107); Estimated CRCL calculation 42 ml/min; Estimated Glomerular Filt Rate 60; Glucose 125 mg/dL (65-110); Potassium 4.3 mmol/L (3.4-5.0); Sodium 135 mmol/L (137-145)
[2021-04-03 18:42] LABS: Troponin I < 0.012 ng/mL (0.000-0.034)
[2021-04-03 18:43] LABS: INR 1.2; Prothrombin Time 14.7 Seconds (11.1-14.7)
[2021-04-03 18:44] LABS: Partial Thromboplastin Time 32.1 SECONDS (22.3-36.8)
[2021-04-03 20:30] VITALS: BP 146/78; PULSE 77; RESP 16; O2SAT 99
[2021-04-03] MEDS: ASPIRIN 81 MG CHEWABLE TABLET 324 MG PO (21:26)
[2021-04-03] MEDS: ACETAMINOPHEN 325 MG TABLET 650 MG PO (21:27)
[2021-04-03] MEDS: SODIUM CHLORIDE 0.9% IV 500 ML 999 ML IV CONT (21:27)
[2021-04-03 21:29] VITALS: BP 154/73; PULSE 77; RESP 18; O2SAT 96
[2021-04-03 21:52] LABS: Troponin I < 0.012 ng/mL (0.000-0.034)
--- NOTE | 2021-04-03 23:32 | ED.CHESTPAIN ---
HPI - Chest Pain General Chief Complaint: Chest Pain Stated Complaint: left sided pain with breathing Time Seen by Provider: 04/03/21 20:26 History of Present Illness HPI narrative: 85-year-old female with history of hypertension and A. fib currently on Xarelto complaining of intermittent chest pain left anterior chest rating to left axillary lasting seconds at a time worse with a deep breath starting 1 hour prior to arrival. No fever, no productive cough, no shortness of breath, no nausea no vomiting. Patient states she has had this intermittently before but never as constant as she did tonight. Pain worse with a deep breath, pain worse with cough. No palpitations no syncope no lightheadedness. Patient states she is taking all medications and has not missed any doses. No other complaints. Related Data Home Medications Medication Instructions Recorded Confirmed ascorbic acid (vitamin C) 500 mg 500 mg PO DAILY 08/14/19 03/17/21 capsule,extended release calcium carbonate-vitamin D3 600 600 tablet PO DAILY 08/14/19 03/17/21 mg(1,500 mg)-400 unit chewable tablet cholecalciferol (vitamin D3) 25 1,000 unit PO DAILY 08/14/19 03/17/21 mcg (1,000 unit) capsule magnesium 200 mg tablet 200 mg PO DAILY 08/14/19 03/17/21 metoprolol succinate 50 mg 50 mg PO DAILY 08/14/19 03/17/21 tablet,extended release 24 hr rivaroxaban 20 mg tablet 20 mg PO QPM 08/14/19 03/17/21 Allergies Allergy/AdvReac Type Severity Reaction Status Date / Time memantine Allergy Unknown Unknown Verified 09/09/20 09:53 Review of Systems Review of Systems: CONSTITUTIONAL: no fever, no weight loss, no confusion EYES: no vision changes, no eye pain ENT: no rhinorrhea, no sore throat, no difficulty swallowing CARDIOVASCULAR: positive for chest pain, positive for chronic leg edema, no palpitations RESPIRATORY: positive for cough, no shortness of breath, no hemoptysis GASTROINTESTINAL: no abdominal pain, no nausea, no vomiting, no diarrhea GENITOURINARY: no flank pain, no dysuria, no hematuria SKIN: no rash, no jaundice MUSCULOSKELETAL: no back pain, no trauma. NEUROLOGIC: No headache, no dizziness, no focal weakness PSYCHIATRIC: No hallucinations, no suicidal ideation [facility] Past Medical History Medical History Afib Chronic diastolic CHF (congestive heart failure) Essential (primary) hypertension History of breast cancer History of gastric ulcer Iron deficiency anemia Surgical History Surgical History H/O cataract extraction History of appendectomy History of hysterectomy History of left mastectomy History of tonsillectomy and adenoidectomy Family History Family History Father Congestive heart failure Heart disease Social History Social History Social History: the patient lives at [facility] living with her . Her is listed as a durable power bankruptcy attorney for healthcare as well as her daughter. The patient has a modified code where she will allow CPR but does not want to be on a ventilator she is a DNI. 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 She is a lifelong nonsmoker no alcohol marijuana or illicit drugs. Smoking status: Never smoker Second hand tobacco smoke exposure: No Alcohol intake: never Substance use: never Substance use type: does not use Gender identity (if verbalized by the patient): Female Spiritual care concerns: No Exam Narrative: General: alert, afebrile, answering all questions appropriately Head: normocephalic, atraumatic Eyes: EOMI bilaterally, anicteric, no injection ENT: moist mucous membranes, oropharynx patent, no rhinorrhea Neck: supple, trachea midline, no JVD Chest: equal chest rise bilaterally, no chest wa
[2021-04-04 00:24] VITALS: BP 157/74; PULSE 68; RESP 16; O2SAT 96
== END 2021-04-04 01:04 ==
PROVIDERS: Emergency Medicine; Emergency Provider Emergency Medicine; PCP Family Medicine
DX: R07.89 Other chest pain (principal); I48.20 Chronic atrial fibrillation, unspecified; Z79.01 Long term (current) use of anticoagulants; I50.9 Heart failure, unspecified; I11.0 Hypertensive heart disease with heart failure; Z85.3 Personal history of malignant neoplasm of breast; D50.9 Iron deficiency anemia, unspecified; Z98.49 Cataract extraction status, unspecified eye; Z90.12 Acquired absence of left breast and nipple; I51.7 Cardiomegaly; R94.31 Abnormal electrocardiogram [ECG] [EKG]
CPT/HCPCS: 36415; 71046; 71275; 80048; 84484; 85025; 85610; 85730; 93005; 99284; A9270; J7040; Q9967

== ENCOUNTER 2023-03-19 02:58 | Emergency (ER) | payer MEDICARE, OTHER, SELFPAY ==
--- NOTE | ~2023-03-19 | XR_ITS ---
Portable chest x-ray Comparison: 04/03/2021 Clinical History: Weakness Findings: There is probable mild diffuse interstitial prominence. No pleural effusion or pneumothora x. Cardiomediastinal silhouette is stable. Bones and soft tissues are unremarkable. Impression: Mild diffuse interstitial prominence. Correlate for mild interstitial edema or COPD/chronic interstit ial disease. Reviewed, dictated and finalized at location . Impression: Mild diffuse interstitial prominence. Correlate for mild interstitial edema or COPD/chronic interstitial disease.
[2023-03-19 02:59] VITALS: BP 146/84; PULSE 74; RESP 15; TEMP 36.6; O2SAT 97
--- NOTE | 2023-03-19 03:16 | ECG_ITS ---
Measurements Intervals [place] Rate: 67 P: [place]: 0 QRS: -9 QRSD: 101 T: 29 QT: 412 QTc: 437 Interpretive Statements ATRIAL FIBRILLATION VOLTAGE CRITERIA FOR LVH BASELINE ARTIFACT- III, AVF, V1-V2, V5 ABNORMAL ECG COMPARED TO ECG 04/03/2021 18:00:27 NO SIGNIFICANT CHANGES Electronically Signed On 03-19-2023 6:38:16 CDT by Mark Burnette D.O.
[2023-03-19 03:46] LABS: Appearance Urine Clear (Clear); Basophils Absolute Auto 0.1 K/mm3 (0.0-0.1); Basophils Percent Auto 0.7 % (0.2-1.2); Bilirubin Urine Negative (Negative); Blood Urine Negative (Negative); Color Urine Yellow (Yellow); Eosinophils Absolute Auto 0.2 K/mm3 (0-0.3); Eosinophils Percent Auto 3.1 % (0-4.4); Glucose Urine UA Negative (Negative); Hematocrit 44.4 % (37.0-47.0); Hemoglobin 14.9 g/dL (12.0-15.0); Immature Granulocyte Absolute 0.05 K/mm3 (0.00-0.031); Immature Granulocyte Percent A 0.7 % (0-0.5); Ketones Urine Negative (Negative); Leukocyte Esterase Ur Negative LEU/UL (Negative); Lymphocytes Absolute Auto 0.85 K/mm3 (0.9-3.2); Lymphocytes Percent Auto 12.4 % (18.3-44.2); Mean Corpuscular HGB Conc 33.6 g/dl (32-36); Mean Corpuscular Hemoglobin 31.4 pg (26-34); Mean Corpuscular Volume 93.5 fl (80-100); Mean Platelet Volume 9.4 fl (7.4-10.4); Monocytes Absolute Auto 0.9 K/mm3 (0.1-0.6); Monocytes Percent Auto 13.6 % (2.6-8.5); Neutrophils Absolute Auto 4.8 K/mm3 (1.3-6.7); Neutrophils Percent Auto 69.5 % (45.5-73.1); Nitrate Urine Negative (Negative); Platelet Count Result 190 k/mm3 (150-375); Protein Urine Negative (Negative); Red Blood Count 4.75 M/mm3 (4.2-5.4); Red Cell Distribution Width 13.8 % (11.5-14.5); Specific Grav Ur 1.022 (1.001-1.035); White Blood Count 6.9 K/mm3 (4.5-10.0)
[2023-03-19 03:53] LABS: Add Urine Microscopic? NO
--- NOTE | 2023-03-19 03:55 | ED.FALL ---
HPI - Fall General Chief Complaint: Fall Stated Complaint: . Time Seen by Provider: 03/19/23 03:09 History of Present Illness HPI Narrative: Patient brought to the emergency department by EMS. She went to the bathroom tonight became generally weak. Fell to the floor. Denies any injuries. Denies head trauma. She was too weak to get back up. She lives with her in an independent living facility. She is not currently accompanied by her . Paramedics contributed to the history Related Data Home Medications Medication Instructions Recorded Confirmed ascorbic acid (vitamin C) 500 mg 500 mg PO DAILY 08/14/19 12/07/22 capsule,extended release calcium carbonate 600 mg-vitamin 600 tablet PO DAILY 08/14/19 12/07/22 D3 10 mcg (400 unit) chewable tablet (Calcium 600 with Vitamin D3) cholecalciferol (vitamin D3) 25 1,000 unit PO DAILY 08/14/19 12/07/22 mcg (1,000 unit) capsule magnesium 200 mg tablet 200 mg PO DAILY 08/14/19 12/07/22 metoprolol succinate 50 mg 50 mg PO DAILY 08/14/19 12/07/22 tablet,extended release 24 hr (Toprol XL) rivaroxaban 20 mg tablet (Xarelto) 20 mg PO QPM 08/14/19 12/07/22 Allergies Allergy/AdvReac Type Severity Reaction Status Date / Time memantine Allergy Unknown Unknown Verified 12/07/22 09:41 Review of Systems Review of Systems: Review of systems negative except for what is documented in the HPI [facility] Past Medical History Medical History Afib Chronic diastolic CHF (congestive heart failure) Essential (primary) hypertension History of breast cancer History of gastric ulcer Iron deficiency anemia Surgical History Surgical History H/O cataract extraction History of appendectomy History of hysterectomy History of left mastectomy History of tonsillectomy and adenoidectomy Family History Family History Father Congestive heart failure Heart disease Social History Social History Social History: the patient lives at [place] [facility] living with her . Her is listed as a durable power contract attorney for healthcare as well as her daughter. The patient has a modified code where she will allow CPR but does not want to be on a ventilator she is a DNI. The patient worked prior to having her daughter and then was a [id number] mother. She is a lifelong nonsmoker no alcohol marijuana or illicit drugs. Smoking status: Unknown if ever smoked Second hand tobacco smoke exposure: No Alcohol intake: never Substance use: never Substance use type: does not use Living arrangements: with family Occupation/Education: other Gender identity (if verbalized by the patient): Female Spiritual care concerns: No Exam Narrative: GENERAL: Well-appearing, well-nourished, and in no acute distress. HEAD: Normocephalic, atraumatic. EYES: PERRLA and EOMI. ENT: Nares clear, no rhinorrhea or epistaxis. Mucous membranes moist. NECK: Supple. CHEST: Clear to auscultation. No respiratory distress. HEART: Regular rate and rhythm. ABDOMEN: Soft, nontender, nondistended. EXTREMITIES: Normal range of motion. No edema. No extremity tenderness SKIN: Warm, dry, no rash. NEURO: No focal deficits. Alert and oriented x3. PSYCH: Normal mood and affect. Course Course Emergency Course: Differential diagnosis includes but not limited to electrolyte abnormality, urinary tract infection, NSTEMI telemetry ordered due to generalized weakness to evaluate for dysrhythmias. Evaluated by myself. Rhythm Afib rate - 76 Vital Signs Vital signs: Vital Signs Temperature 36.6 C 03/19/23 02:59 Pulse Rate 74 03/19/23 02:59 Respiratory Rate 15 03/19/23 02:59 Blood Pressure 146/84 H 03/19/23 02:59 Pulse Oximetry 97 03/02
[2023-03-19 03:56] LABS: Alanine Aminotransferase 33 U/L (6-35); Albumin Level 3.6 g/dL (3.5-5.1); Alkaline Phosphatase 71 U/L (38-126); Anion Gap 5 mmol/L (8-16); Aspartate Amino Transferase 35 U/L (14-36); Bilirubin,Total 0.9 mg/dL (0.2-1.3); Blood Urea Nitrogen 24 mg/dL (7-17); Calcium 9.1 mg/dL (8.4-10.2); Carbon Dioxide 27 mmol/L (22-30); Chloride 104 mmol/L (98-107); Estimated CRCL calculation 42 ml/min; Estimated Glomerular Filt Rate 53; Glucose 112 mg/dL (65-110); Sodium 136 mmol/L (137-145)
[2023-03-19 04:08] LABS: Troponin I < 0.012 ng/mL (0.000-0.034)
[2023-03-19 05:05] VITALS: BP 140/62; PULSE 73; RESP 15; O2SAT 100
[2023-03-19 06:43] VITALS: BP 142/80; PULSE 66; RESP 15; O2SAT 99
== END 2023-03-19 06:46 ==
PROVIDERS: Emergency Provider Emergency Medicine; PCP Family Medicine
DX: I48.20 Chronic atrial fibrillation, unspecified (principal); F03.90 Unspecified dementia, unspecified severity, without behavioral disturbance, psychotic disturbance, mood disturbance, and anxiety; I50.32 Chronic diastolic (congestive) heart failure; I11.0 Hypertensive heart disease with heart failure; D50.9 Iron deficiency anemia, unspecified; Z85.3 Personal history of malignant neoplasm of breast; Z98.49 Cataract extraction status, unspecified eye; Z90.710 Acquired absence of both cervix and uterus; Z90.12 Acquired absence of left breast and nipple; Z79.01 Long term (current) use of anticoagulants
CPT/HCPCS: 36415; 71045; 80053; 81003; 84484; 85025; 93005; 99284

== ENCOUNTER 2023-07-09 11:02 | Inpatient (IN) | payer MEDICARE, OTHER, SELFPAY ==
[2023-07-09] VITALS (13 sets, daily range): BP systolic 145–168; BP diastolic 65–90; PULSE 54–79; RESP 15–20; TEMP 36.7; O2SAT 93–98
--- NOTE | ~2023-07-09 | CT_ITS ---
EXAMINATION: CT brain wo con DATE: 07/09/2023 20:47 INDICATION: Lightheadedness TECHNIQUE: Computed tomography (CT) of the head was performed without intravenous contrast. Sagittal and coronal reconstructions were performed. The mA was adjusted according to patient size. Iterative reconstruction technique was employed. The dose-length product was 681.00 mGy-cm. COMPARISON: head CT dated 11/28/2017 FINDINGS: Moderate-sized region of encephalomalacia in the right temporal parietal occipital region consistent with chronic infarct new since the prior study. No acute intracranial hemorrhage, acute infarction or abnormal extra axial fluid collection. There is moderate scattered white matter hypoattenuation cons istent with chronic small vessel ischemic disease. Symmetric prominence of the sulci and ventricles c onsistent with moderate age-appropriate diffuse cerebral volume loss. No mass/mass effect. Changes of bilateral intraocular lens replacement. The orbits, paranasal sinuses and mastoid air cells are norm al. IMPRESSION: 1. No acute intracranial process. 2. 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 3. Age-related changes including moderate diffuse volume loss and moderate scattered white matter hyp oattenuation consistent with chronic small vessel ischemic disease. Reviewed, dictated and finalized at location A. LRY TECHNICIAN IMPRESSION: 1. No acute intracranial process. 2. Moderate-sized chronic infarct in the right temporal parietal occipital joanna on. 3. Age-related changes including moderate diffuse volume loss and moderate scat tered white matter hypoattenuation consistent with chronic small vessel ischemi c disease.
--- NOTE | ~2023-07-09 | XR_ITS ---
EXAMINATION: XR chest 1V portable DATE: 07/09/2023 17:57 INDICATION: Lightheadedness TECHNIQUE: frontal view of the chest was obtained. COMPARISON: Chest radiograph dated 03/19/2023 FINDINGS: Unchanged elevation of left hemidiaphragm. Increased interstitial pattern and mild airspace opacities in the bilateral lower lung zones most likely related to mild pulmonary edema and atelectasis althou gh pneumonia not excludable. Small bilateral pleural effusions. No pneumothorax. Cardiomegaly. Left m astectomy and surgical clips at the left axilla consistent with associated lymph node dissection. IMPRESSION: 1. Interstitial and mild airspace opacities in bilateral lower lung zones most likely congestive hear t failure related mild pulmonary edema and mild atelectasis although differential includes pneumonia. 2. Cardiomegaly. Reviewed, dictated and finalized at location A. WARE TEST ANALYST IMPRESSION: 1. Interstitial and mild airspace opacities in bilateral lower lung zones most likely congestive heart failure related mild pulmonary edema and mild atelectas is although differential includes pneumonia. 2. Cardiomegaly.
--- NOTE | ~2023-07-09 | XR_ITS ---
Portable chest x-ray Comparison: 07/09/2023 Clinical History: Fluid overload Findings: [id number] left pleural effusion is present. There is probable underlying chronic i nterstitial disease. Possible minimal central congestive change. Cardiomediastinal silhouette is sta ble. Bones and soft tissues are unremarkable. Impression: [id number] left pleural effusion. Possible mild central congestive change. Suspected underlying chronic interstitial disease. Reviewed, dictated and finalized at location M. T LEAD Impression: [id number] left pleural effusion. Possible mild central congestive change. Suspected underlying chronic interstitial disease.
--- NOTE | 2023-07-09 12:02 | ED.GENADULT ---
HPI - General Adult General Chief complaint: Dizziness <Ramona Ritchie October, NAPHTHALENE OPERATOR - Last Filed: 07/09/23 12:08> Stated complaint: dizziness x 3 weeks <Ramona Ritchie October, - Last Filed: 07/09/23 12:08> Time Seen by Provider: 07/09/23 17:27 <Ramona Ritchie October, - Last Filed: 07/09/23 12:08> History of Present Illness HPI narrative: Annamarie Belle is an 88 y/o female who presents with reports of having increased fatigue/ tired for the past few days she states she has had dizziness for months but maybe has felt worse the past two days. Denies fevers/cough/ runny nose. Denies chest pain. patient alert and oriented no focal weakness on exam pt states she has memory problems and is forgetful <Ramona Ritchie October, - Last Filed: 07/09/23 12:08> Related Data Home medications: Home Medications Medication Instructions Recorded Confirmed ascorbic acid (vitamin C) 500 mg 500 mg PO DAILY 08/14/19 07/10/23 capsule,extended release cholecalciferol (vitamin D3) 25 1,000 unit PO DAILY 08/14/19 07/10/23 mcg (1,000 unit) capsule magnesium 200 mg tablet 200 mg PO DAILY 08/14/19 07/10/23 metoprolol succinate 50 mg 50 mg PO DAILY 08/14/19 07/10/23 tablet,extended release 24 hr (Toprol XL) rivaroxaban 20 mg tablet (Xarelto) 20 mg PO QPM 08/14/19 07/10/23 ferrous sulfate 324 mg (65 mg 324 mg PO DAILY 07/10/23 07/10/23 iron) tablet,delayed release omeprazole 20 mg capsule,delayed 20 mg PO DAILY 07/10/23 07/10/23 release <Ramona Ritchie October, - Last Filed: 07/09/23 12:08> Allergies/adverse reactions: Allergies Allergy/AdvReac Type Severity Reaction Status Date / Time memantine Allergy Unknown Unknown Verified 06/29/23 09:28 <Ramona Ritchie October, - Last Filed: 07/09/23 12:08> Review of Systems Review of Systems: All systems as dictated in HPI <Vinh Zamarripa PA-C - Last Filed: 07/10/23 01:42> [facility] Past Medical History Medical History: Medical History Afib Chronic diastolic CHF (congestive heart failure) Essential (primary) hypertension History of breast cancer History of gastric ulcer Iron deficiency anemia <Ramona Ritchie October, NAPHTHALENE OPERATOR - Last Filed: 07/09/23 12:08> Surgical History Surgical History: Surgical History H/O cataract extraction History of appendectomy History of hysterectomy History of left mastectomy History of tonsillectomy and adenoidectomy <Ramona Ritchie October, NAPHTHALENE OPERATOR - Last Filed: 07/09/23 12:08> Family History Family History: Family History Father Congestive heart failure Heart disease <Ramona Ritchie October, NAPHTHALENE OPERATOR - Last Filed: 07/09/23 12:08> Social History Social History: Social History Social History: the patient lives at [facility] living with her . Her is listed as a durable power freight hustler for healthcare as well as her daughter. The patient has a modified code where she will allow CPR but does not want to be on a ventilator she is a DNI. The patient worked prior to having her daughter and then was a [id number] mother. She is a lifelong nonsmoker no alcohol marijuana or illicit drugs. Smoking status: Never smoker Second hand tobacco smoke exposure: No Alcohol intake: never Substance use: never Substance use type: does not use Do You Feel Safe in your Home?: Yes Lack of Transportation: No Lack of Food: Never True Current Housing: I Have Housing Concerned About Future Housing: No Difficulty Paying Gas/Electric Bills: No Difficulty Paying for Meds: No Currently Unemployed: No Education: High School Diploma/GED Difficulty w/ Childcare or Family Care: No Living arrangements: with family Occupation/Education: other Gender identity (if verbalized by the patient): Female Spiritual
--- NOTE | 2023-07-09 12:05 | ECG_ITS ---
Measurements Intervals [place] Rate: 60 P: [place]: 0 QRS: -12 QRSD: 106 T: 9 QT: 441 QTc: 443 Interpretive Statements ATRIAL FIBRILLATION VOLTAGE CRITERIA FOR LVH BASELINE ARTIFACT- I, II, III, AVR, AVL, AVF, V1-V2 ABNORMAL ECG COMPARED TO ECG 03/19/2023 03:27:39 NO SIGNIFICANT CHANGES Electronically Signed On 07-09-2023 12:50:54 DOCUMENT PROCESSING SPECIALIST by Mark Burnette D.O.
[2023-07-09 12:32] LABS: Basophils Absolute Auto 0.1 K/mm3 (0.0-0.1); Basophils Percent Auto 0.9 % (0.2-1.2); Eosinophils Absolute Auto 0.2 K/mm3 (0-0.3); Eosinophils Percent Auto 3.7 % (0-4.4); Hematocrit 40.2 % (37.0-47.0); Hemoglobin 12.7 g/dL (12.0-15.0); Immature Granulocyte Absolute 0.03 K/mm3 (0.00-0.031); Immature Granulocyte Percent A 0.5 % (0-0.5); Lymphocytes Absolute Auto 0.66 K/mm3 (0.9-3.2); Lymphocytes Percent Auto 11.5 % (18.3-44.2); Mean Corpuscular HGB Conc 31.6 g/dl (32-36); Mean Corpuscular Hemoglobin 29.8 pg (26-34); Mean Corpuscular Volume 94.4 fl (80-100); Mean Platelet Volume 9.1 fl (7.4-10.4); Monocytes Absolute Auto 0.8 K/mm3 (0.1-0.6); Monocytes Percent Auto 13.1 % (2.6-8.5); Neutrophils Percent Auto 70.3 % (45.5-73.1); Platelet Count Result 212 k/mm3 (150-375); Red Blood Count 4.26 M/mm3 (4.2-5.4); Red Cell Distribution Width 13.6 % (11.5-14.5); White Blood Count 5.7 K/mm3 (4.5-10.0)
[2023-07-09 12:39] LABS: Appearance Urine Cloudy (Clear); Bacteria Urine None Seen /hpf; Bilirubin Urine Negative (Negative); Blood Urine Negative (Negative); Color Urine Yellow (Yellow); Glucose Urine UA Negative (Negative); Ketones Urine Negative (Negative); Leukocyte Esterase Ur Negative LEU/UL (Negative); Nitrate Urine Negative (Negative); Non Pathogenic Casts 0-2; Protein Urine Negative (Negative); RBC Urine 0-2 /hpf (0-2); Specific Grav Ur 1.007 (1.001-1.035); Squamous Epithelial Cell Urine None seen /hpf (Few); WBC Urine 0-5 /hpf
[2023-07-09 12:41] LABS: Anion Gap 9 mmol/L (8-16); Blood Urea Nitrogen 27 mg/dL (7-17); Calcium 8.9 mg/dL (8.4-10.2); Carbon Dioxide 24 mmol/L (22-30); Chloride 104 mmol/L (98-107); Estimated CRCL calculation 37 ml/min; Estimated Glomerular Filt Rate 52; Glucose 109 mg/dL (65-110); Sodium 137 mmol/L (137-145)
[2023-07-09 12:48] LABS: Add Urine Microscopic? YES
[2023-07-09 13:13] LABS: Influenza A QL RT-PCR Negative (Negative); Influenza B QL RT-PCR Negative (Negative); RSV RNA, RT-PCR Negative (Negative); SARS-CoV-2 RNA PCR Negative (Negative)
[2023-07-09 18:42] LABS: NT Pro B Type Natriuretic Pept 2300 pg/mL (19.9-100)
[2023-07-09] MEDS: FUROSEMIDE INJ 40 MG/4 ML VIAL IV PUSH (19:21)
--- NOTE | 2023-07-09 19:31 | PC.NURSE ---
Assumed care of pt from KRISTINA Cedeno at this time.
[2023-07-09 21:58] LABS: Troponin I < 0.012 ng/mL (0.000-0.034)
[2023-07-10] VITALS (9 sets, daily range): BP systolic 135–139; BP diastolic 61–62; PULSE 65–79; RESP 18–20; TEMP 36.2–36.4; O2SAT 91–96
--- NOTE | 2023-07-10 00:15 | ADMGEN ---
This patient, Annamarie Belle, was admitted to 2 Medical Room 245-. Patient/family oriented to hospital policies and general routines including ID bracelet, bed and alarms, visiting hours, pain management, procedures, bathroom and other care routines, personal items, smoking policy, room service/diet, and visiting hours. Information on how to activate the Rapid Response Team has been discussed. Patient/Family are encouraged to report perceived risks to care and to ask questions if they do not understand what they are told or what they should do.
--- NOTE | 2023-07-10 10:28 | PM.IMHP ---
H&P: HPI History of Present Illness Date/Time: 07/10/23 10:28 Chief Complaint: 88-year-old female with a PMHx: of HTN, CKD 3, AFib, chronic diastolic CHF hx of PUD and EUNICE who presents to the emergency room from [facility] with complaint increased fatigue / tired ongoing for the past few days. Narrative: Pt is not able to provide HPI, during assessment she is disorientated. She denies any chest pain nausea vomiting fever chills. HPI, provided by daughter Camille, who reports pt has had increased weakness, for past two weeks. Daughter reports pt had fall in dinning room 3 weeks ago. Daughter is unable to provide detailed hx, she does mention pt was seen at her primary care office for a c/o ongoing dizziness. 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 Chest x-ray reveals interstitial/mild airspace opacities, mild pulmonary edema mild atelectasis differential includes PN, cardiomegaly Review of Systems Review of Systems: ROS unobtainable: Yes unobtainable due to medical condition PMFSH Past Medical History Medical History Afib Chronic diastolic CHF (congestive heart failure) Essential (primary) hypertension History of breast cancer History of gastric ulcer Iron deficiency anemia Surgical History Surgical History H/O cataract extraction History of appendectomy History of hysterectomy History of left mastectomy History of tonsillectomy and adenoidectomy Family History Family History Father Congestive heart failure Heart disease Social History Social History Social History: the patient lives at [facility] living with her . Her is listed as a durable power deputy commonwealth's attorney for healthcare as well as her daughter. The patient has a modified code where she will allow CPR but does not want to be on a ventilator she is a DNI. 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 She is a lifelong nonsmoker no alcohol marijuana or illicit drugs. Smoking status: Never smoker Second hand tobacco smoke exposure: No Alcohol intake: never Substance use: never Substance use type: does not use Do You Feel Safe in your Home?: Yes Lack of Transportation: No Lack of Food: Never True Current Housing: I Have Housing Concerned About Future Housing: No Difficulty Paying Gas/Electric Bills: No Difficulty Paying for Meds: No Currently Unemployed: No Education: High School Diploma/GED Difficulty w/ Childcare or Family Care: No Living arrangements: with family Occupation/Education: other Gender identity (if verbalized by the patient): Female Spiritual care concerns: No Meds Home Medications and Allergies Home Medications Medication Instructions Recorded Confirmed Type ascorbic acid (vitamin C) 500 mg 500 mg PO DAILY 08/14/19 07/10/23 History capsule,extended release cholecalciferol (vitamin D3) 25 1,000 unit PO DAILY 08/14/19 07/10/23 History mcg (1,000 unit) capsule magnesium 200 mg tablet 200 mg PO DAILY 08/14/19 07/10/23 History metoprolol succinate 50 mg 50 mg PO DAILY 08/14/19 07/10/23 History tablet,extended release 24 hr (Toprol XL) rivaroxaban 20 mg tablet (Xarelto) 20 mg PO QPM 08/14/19 07/10/23 History potassium chloride 20 mEq 20 meq PO DAILY #90 tabs 12/19/22 07/10/23 Rx tablet,extended release(part/cryst) (Klor-Con M) furosemide 20 mg tablet 20 mg PO DAILY #90 tabs 03/21/23 07/10/23 Rx ferrous sulfate 324 mg (65 mg 324 m
[2023-07-11] VITALS (10 sets, daily range): BP systolic 130–148; BP diastolic 57–67; PULSE 69–105; RESP 16–17; TEMP 36.3–36.8; O2SAT 93–98
--- NOTE | 2023-07-11 05:00 | ECG_ITS ---
Measurements Intervals [place] Rate: 77 P: IA: 0 QRS: -18 QRSD: 94 T: 3 QT: 385 QTc: 438 Interpretive Statements ATRIAL FIBRILLATION LEFT VENTRICULAR HYPERTROPHY WITH ST-T CHANGE BORDERLINE T WAVE ABNORMALITY- INFERIOR LEADS BASELINE ARTIFACT- I, II, III, AVL, AVF, V1-V2 ABNORMAL ECG COMPARED TO ECG 07/09/2023 12:21:42 T WAVE DEVIATION NOW PRESENT Electronically Signed On 07-11-2023 7:45:32 POULTRY EVISCERATOR by Mark Burnette D.O.
[2023-07-11 05:54] LABS: Basophils Percent Auto 0.7 % (0.2-1.2); Eosinophils Absolute Auto 0.2 K/mm3 (0-0.3); Eosinophils Percent Auto 3.1 % (0-4.4); Hematocrit 38.5 % (37.0-47.0); Hemoglobin 12.4 g/dL (12.0-15.0); Immature Granulocyte Absolute 0.04 K/mm3 (0.00-0.031); Immature Granulocyte Percent A 0.7 % (0-0.5); Lymphocytes Absolute Auto 0.65 K/mm3 (0.9-3.2); Lymphocytes Percent Auto 11.8 % (18.3-44.2); Mean Corpuscular HGB Conc 32.2 g/dl (32-36); Mean Corpuscular Hemoglobin 30.1 pg (26-34); Mean Corpuscular Volume 93.4 fl (80-100); Mean Platelet Volume 9.2 fl (7.4-10.4); Monocytes Absolute Auto 0.8 K/mm3 (0.1-0.6); Monocytes Percent Auto 14.8 % (2.6-8.5); Neutrophils Absolute Auto 3.8 K/mm3 (1.3-6.7); Neutrophils Percent Auto 68.9 % (45.5-73.1); Platelet Count Result 217 k/mm3 (150-375); Red Blood Count 4.12 M/mm3 (4.2-5.4); Red Cell Distribution Width 13.6 % (11.5-14.5); White Blood Count 5.5 K/mm3 (4.5-10.0)
[2023-07-11 06:05] LABS: Alanine Aminotransferase 33 U/L (6-35); Albumin Level 3.3 g/dL (3.5-5.1); Alkaline Phosphatase 96 U/L (38-126); Anion Gap 5 mmol/L (8-16); Aspartate Amino Transferase 27 U/L (14-36); Bilirubin,Total 1.2 mg/dL (0.2-1.3); Blood Urea Nitrogen 26 mg/dL (7-17); Calcium 8.9 mg/dL (8.4-10.2); Carbon Dioxide 25 mmol/L (22-30); Chloride 108 mmol/L (98-107); Cholesterol 164 mg/dL (0-200); Estimated CRCL calculation 45 ml/min; Estimated Glomerular Filt Rate > 60; Glucose 95 mg/dL (65-110); HDL Direct 54 mg/dL; Potassium 3.9 mmol/L (3.4-5.0); Sodium 138 mmol/L (137-145); Triglycerides 41 mg/dL (<150)
[2023-07-11 06:13] LABS: NT Pro B Type Natriuretic Pept 1580 pg/mL (19.9-100)
[2023-07-11 06:16] LABS: LDL Cholesterol Direct 82 mg/dL
[2023-07-11] MEDS: CHOLECALCIFEROL 1,000 UNITS TABLET 1000 UNITS PO (08:05)
[2023-07-11] MEDS: ASCORBIC ACID 500 MG TABLET PO (08:05)
[2023-07-11] MEDS: FERROUS SULFATE 325 MG TABLET DR 324 MG PO (08:05)
[2023-07-11] MEDS: METOPROLOL SUCCINATE EXT REL 50 MG TABCR PO (08:06)
[2023-07-11] MEDS: PANTOPRAZOLE 40 MG TABLET PO (08:06)
[2023-07-11] MEDS: POTASSIUM CHLORIDE 20 MEQ ER TABLET PO (08:06)
[2023-07-11] MEDS: FUROSEMIDE 20 MG TABLET PO (08:06)
[2023-07-11] MEDS: MAGNESIUM OXIDE 200 MG TABLET PO (08:06)
--- NOTE | 2023-07-11 12:29 | PM.IMPN ---
Progress Note: A&P Assessment and Plan (1) Acute exacerbation of CHF (congestive heart failure): Qualifiers: Heart failure type: combined systolic and diastolic Qualified Code(s): I50.43 - Acute on chronic combined systolic (congestive) and diastolic (congestive) heart failure Code(s): I50.9 - Heart failure, unspecified Status: Acute Assessment and Plan: Last ECHO is unknown. ECHO ordered for today. Continue telemetry Continue Fluid Restriction Accurate I&O Daily weights Trend labs and VS. Cook Helper Preserves consult for Heart Failure and Dietitian consult for heart failure. Continue Lasix. (2) Stage 3a chronic kidney disease (CKD): Code(s): N18.31 - Chronic kidney disease, stage 3a Status: Chronic Assessment and Plan: Monitor labs and UOP Degree of anemia is mild. (3) Edema, lower extremity: Code(s): R60.0 - Localized edema Status: Chronic Assessment and Plan: Non-pitting. Monitor Continue diuretics (4) History of gastric ulcer: Code(s): Z87.19 - Personal history of other diseases of the digestive system Status: Chronic Assessment and Plan: Continue PPI therapy (5) Iron deficiency anemia: Qualifiers: Iron deficiency anemia type: other iron deficiency Qualified Code(s): D50.8 - Other iron deficiency anemias Code(s): D50.9 - Iron deficiency anemia, unspecified Status: Chronic Assessment and Plan: Continue Iron Supplementation. (6) Current use of nursing home anticoagulation: Code(s): Z79.01 - roasterman (current) use of anticoagulants Status: Chronic Assessment and Plan: Continue Xarelto for her chronic A-fib. Monitor for any s/s of bleeding. (7) Afib: Qualifiers: Atrial fibrillation type: unspecified chronic Qualified Code(s): I48.20 - Chronic atrial fibrillation, unspecified Code(s): I48.91 - Unspecified atrial fibrillation Status: Chronic Assessment and Plan: Continue Xarelto Currently on Telemetry Awaiting ECHO results. Time Spent With Patient Time with patient: 15 - 25 minutes Subjective Date/time seen: 07/11/23 5862 Interval history: This elderly, confused, 88 year old female pt who is a resident at [facility] and admitted to the hospital yesterday with increased weakness and was admitted to the hospital for Heart Failure Exacerbation, is examined today at the bedside in interval assessment. She was found to have some fluid overload on CXR and by Physical exam and diuresis was started. Her VSS, her Renal function is normal and her BNP has decreased from 2300-->1580. She does endorse edema of the BLE that remains. She has no other acute complaints at this time. She is to have an ECHO performed today as it is unknown when her last one was. She has had a net UOP of -310, and weight this AM was 81.2 kg. She has no new complaints at this time and endorses feeling generally weak overall. She is concerned as her spouse is also admitted here currently. Review of Systems Review of Systems: All systems reviewed & are unremarkable except as noted in HPI and below Exam Narrative: CONSTITUTIONAL: Elderly, female pt lying supine in bed at this time in no acute distress. HEENT: Atraumatic, normocephalic, wet mucous membranes, clear oropharynx EYES: PERRLA, EOM's intact NECK: Full and AROM in a supple manner without any deficits. RESPIRATORY: Decreased throughout, no rales, rhonchi or other adventitious sounds. GI: Soft, NT, flat, BS present in all four quads. CARDIO: Regularly irregular rhythm without any r,g,h. There is a Grade 2 holosystolic murmur present. Trace BLE edema non-pitting. SKIN: Without any acute abnormality or lesion. MUSCULOSKELETAL: Freely and equally MAEW but with generalized weakness. Requires assistance. NEURO: Non-focal exam. Generalized weakness is present. PSYCH: Normal affect and cooperative. Objective
--- NOTE | 2023-07-11 15:28 | PM.CNCAR ---
Assessment and Plan Assessment and plan (1) Acute exacerbation of CHF (congestive heart failure): Qualifiers: Heart failure type: combined systolic and diastolic Qualified Code(s): I50.43 - Acute on chronic combined systolic (congestive) and diastolic (congestive) heart failure Code(s): I50.9 - Heart failure, unspecified Status: Acute Assessment and Plan: Echocardiogram ordered and pending. Continue with PO Lasix for now. Further recommendations pending results of echo. (2) Afib: Qualifiers: Atrial fibrillation type: unspecified chronic Qualified Code(s): I48.20 - Chronic atrial fibrillation, unspecified Code(s): I48.91 - Unspecified atrial fibrillation Status: Chronic Assessment and Plan: Rate controlled. Continue Toprol. Continue Xarelto. (3) Current use of jail anticoagulation: Code(s): Z79.01 - care home (current) use of anticoagulants Status: Chronic Assessment and Plan: Continue Xarelto. History of Present Illness History of Present Illness Consult date/time: 07/11/23 15:28 Requesting physician: Megha Golden APRN Consult reason: congestive heart failure Reason For Visit: CHF Exacerbation Narrative: We are consulted for CHF. This is an 88 year old female with atrial fibrillation, hypertension, chronic kidney disease who presented with increased fatigue and weakness. Patient overall is a poor historian. Additional history obtained from the patient's chart. No chest pain. Had a fall in the dining room about 3 weeks ago. ER workup showed BNP of 2300, CT head with old infarct but no acute findings, CXR with interstitial and mild airspace opacities in bilateral lower lung zones most likely related to congestive heart failure with mild pulmonary edema. Patient is currently on PO Lasix. Denies shortness of breath or orthopnea upon my evaluation. EKGs with rate controlled atrial fibrillation. Review of Systems Review of Systems: All systems reviewed & are unremarkable except as noted in HPI and below (HPI) [facility] Past Medical History Medical History Afib Chronic diastolic CHF (congestive heart failure) Essential (primary) hypertension History of breast cancer History of gastric ulcer Iron deficiency anemia Surgical History Surgical History H/O cataract extraction History of appendectomy History of hysterectomy History of left mastectomy History of tonsillectomy and adenoidectomy Family History Family History Father Congestive heart failure Heart disease Social History Social History Social History: the patient lives at [facility] living with her . Her is listed as a durable power litigation attorney associate for healthcare as well as her daughter. The patient has a modified code where she will allow CPR but does not want to be on a ventilator she is a DNI. The patient worked prior to having her daughter and then was a xzzj-uq-hodk mother. She is a lifelong nonsmoker no alcohol marijuana or illicit drugs. Smoking status: Never smoker Second hand tobacco smoke exposure: No Alcohol intake: never Substance use: never Substance use type: does not use Do You Feel Safe in your Home?: Yes Lack of Transportation: No Lack of Food: Never True Current Housing: I Have Housing Concerned About Future Housing: No Difficulty Paying Gas/Electric Bills: No Difficulty Paying for Meds: No Currently Unemployed: No Education: High School Diploma/GED Difficulty w/ Childcare or Family Care: No Living arrangements: with family Occupation/Education: other Gender identity (if verbalized by the patient): Female Spiritual care concerns: No Meds Home Medications and Allergies Home Medications
[2023-07-11] MEDS: RIVAROXABAN 20 MG TABLET PO (17:09)
--- NOTE | 2023-07-11 17:32 | ECHO_ITS ---
Patient Info Name: Annamarie Belle Age: 88 years : 1935 Gender: Female Ht: 65 in Wt: 178 lbs BSA: 1.95 m2 HR: 94 bpm BP: 130 / 64 mmHg Heart Rhythm: Atrial Fibrillation Technical Quality: Good Exam Date: 07/11/2023 9:34 AM Exam Location: Echo Lab Patient Status: Outpatient Admit Date: 07/09/2023 Staff Ordering Physician: Megha Golden APRN Ui Programmer: Fabi Jackson RDCS Attending Provider: Sadie Foster Referring Physician: Chico GRACE; Exam Type: CA echo doppler color flow Study Info Indications - CHF EXACERBATION Complete two-dimensional, color flow and Doppler transthoracic echocardiogram is performed. Summary 1. Complete two-dimensional, color flow and Doppler transthoracic echocardiogram is performed. 2. Left ventricular chamber dimension is normal. 3. Left ventricular systolic function is normal, estimated at 55-60%. 4. There is mildly increased left ventricular wall thickness. 5. Right ventricular chamber dimension is moderately enlarged. 6. Right ventricular systolic function is normal. 7. Right atrial chamber dimension is moderately enlarged. 8. There is mild aortic valve regurgitation. 9. There is moderate mitral valve regurgitation. 10. There is mild to moderate tricuspid valve regurgitation. 11. There is mild pulmonic regurgitation. 12. Pulmonary hypertension. Estimated pulmonary arterial systolic pressure is 45 mmHg. Left Ventricle Left ventricular chamber dimension is normal. Left ventricular systolic function is normal, estimated at 55-60%. There is mildly increased left ventricular wall thickness. Right Ventricle Right ventricular chamber dimension is moderately enlarged. Right ventricular systolic function is normal. Left Atria Left atrial chamber dimension is normal. Right Atria Right atrial chamber dimension is moderately enlarged. Atrial Septum Intact interatrial septum visualized by color flow imaging. Aortic Valve The aortic valve is probable trileaflet. There is no aortic valve stenosis. There is mild aortic valve regurgitation. Pulmonic Valve The pulmonic valve is not well visualized. There is mild pulmonic regurgitation. Mitral Valve There is moderate mitral valve regurgitation. The mitral valve annulus is mildly calcified. Tricuspid Valve There is mild to moderate tricuspid valve regurgitation. Pulmonary hypertension. Estimated pulmonary arterial systolic pressure is 45 mmHg. Pericardium/Pleural There is no pericardial effusion. Inferior Vena Cava Normal inferior vena cava with <50% collapse upon inspiration consistent with elevated right atrial pressure, 8 mmHg. Aorta The aortic root size at the sinus of Valsalva is normal. Left Ventricular Outflow Tract Name Value Normal LVOT 2D LVOT Diameter 2.4 cm LVOT Doppler LVOT Peak Gradient 2 mmHg LVOT Mean Gradient 1 mmHg LVOT VTI 16 cm LVOT VTI/AV VTI Ratio 0.9 LVOT Stroke Volume 72 ml LVOT CO 5.9 l/min LVOT CI 3.0 l/min/m2 Pulmonic Valve ----
[2023-07-12] VITALS: PULSE 72
[2023-07-12 04:00] VITALS: PULSE 65
[2023-07-12 05:38] LABS: Basophils Absolute Auto 0.1 K/mm3 (0.0-0.1); Eosinophils Absolute Auto 0.2 K/mm3 (0-0.3); Eosinophils Percent Auto 3.9 % (0-4.4); Hematocrit 39.6 % (37.0-47.0); Hemoglobin 12.7 g/dL (12.0-15.0); Immature Granulocyte Absolute 0.03 K/mm3 (0.00-0.031); Immature Granulocyte Percent A 0.5 % (0-0.5); Lymphocytes Absolute Auto 0.88 K/mm3 (0.9-3.2); Lymphocytes Percent Auto 14.4 % (18.3-44.2); Mean Corpuscular HGB Conc 32.1 g/dl (32-36); Mean Corpuscular Hemoglobin 29.7 pg (26-34); Mean Corpuscular Volume 92.7 fl (80-100); Mean Platelet Volume 9.1 fl (7.4-10.4); Monocytes Percent Auto 16.9 % (2.6-8.5); Neutrophils Absolute Auto 3.9 K/mm3 (1.3-6.7); Neutrophils Percent Auto 63.3 % (45.5-73.1); Platelet Count Result 220 k/mm3 (150-375); Red Blood Count 4.27 M/mm3 (4.2-5.4); Red Cell Distribution Width 13.7 % (11.5-14.5); White Blood Count 6.1 K/mm3 (4.5-10.0)
[2023-07-12 05:51] LABS: Alanine Aminotransferase 30 U/L (6-35); Albumin Level 3.4 g/dL (3.5-5.1); Alkaline Phosphatase 85 U/L (38-126); Anion Gap 5 mmol/L (8-16); Aspartate Amino Transferase 30 U/L (14-36); Bilirubin,Total 1.1 mg/dL (0.2-1.3); Blood Urea Nitrogen 25 mg/dL (7-17); Calcium 8.8 mg/dL (8.4-10.2); Carbon Dioxide 23 mmol/L (22-30); Chloride 107 mmol/L (98-107); Estimated CRCL calculation 46 ml/min; Estimated Glomerular Filt Rate > 60; Glucose 93 mg/dL (65-110); Potassium 4.3 mmol/L (3.4-5.0); Sodium 135 mmol/L (137-145)
[2023-07-12 06:00] VITALS: BP 140/61; PULSE 66; RESP 17; TEMP 36.3; O2SAT 94
[2023-07-12 08:00] VITALS: PULSE 70
[2023-07-12] MEDS: FUROSEMIDE 20 MG TABLET PO (08:55)
[2023-07-12] MEDS: PANTOPRAZOLE 40 MG TABLET PO (08:55)
[2023-07-12] MEDS: FERROUS SULFATE 325 MG TABLET DR 324 MG PO (08:55)
[2023-07-12] MEDS: CHOLECALCIFEROL 1,000 UNITS TABLET 1000 UNITS PO (08:55)
[2023-07-12 08:56] VITALS: PULSE 65
[2023-07-12] MEDS: POTASSIUM CHLORIDE 20 MEQ ER TABLET PO (08:56)
[2023-07-12] MEDS: MAGNESIUM OXIDE 200 MG TABLET PO (08:56)
[2023-07-12] MEDS: METOPROLOL SUCCINATE EXT REL 50 MG TABCR PO (08:56)
[2023-07-12] MEDS: ASCORBIC ACID 500 MG TABLET PO (08:56)
--- NOTE | 2023-07-12 11:36 | P.DS_ITS ---
DS: Admitting Diagnosis Discharge Date 07/12/23 Admitting Diagnosis CHF Exacerbation CKD3 Edema BLE Gastric ulcer EUNICE [facility] use of anticoagulants Atrial fibrillation, chronic DS: Discharge Diagnosis Discharge Diagnosis (1) Acute exacerbation of CHF (congestive heart failure): Qualifiers: Heart failure type: combined systolic and diastolic Qualified Code(s): I50.43 - Acute on chronic combined systolic (congestive) and diastolic (congestive) heart failure Code(s): I50.9 - Heart failure, unspecified Status: Acute Assessment and Plan: * Last ECHO is unknown. ECHO ordered for today. * Continue telemetry * Continue Fluid Restriction * Accurate I&O * Daily weights * Trend labs and VS. * Gym Instructor consult for Heart Failure and Dietitian consult for heart failure. * Continue Lasix. * Date of discharge, 07/12/23: Cardiology has evaluated, ECHO is performed. Pt. is found not to be in acute exacerbation of heart failure, and will continue with all home medications as previously ordered. (2) Stage 3a chronic kidney disease (CKD): Code(s): N18.31 - Chronic kidney disease, stage 3a Status: Chronic Assessment and Plan: * Monitor labs and UOP * Degree of anemia is mild. * Date of discharge, 07/12/23: Stable without any further decline. (3) Edema, lower extremity: Code(s): R60.0 - Localized edema Status: Chronic Assessment and Plan: * Non-pitting. * Monitor * Continue diuretics * Date of discharge, 07/12/23: Stable and chronic. No new worsening and no pitting. Suspect this is pt's baseline edema. (4) History of gastric ulcer: Code(s): Z87.19 - Personal history of other diseases of the digestive system Status: Chronic Assessment and Plan: * Continue PPI therapy * Date of discharge, 07/12/23: Continue PPI at home. (5) Iron deficiency anemia: Qualifiers: Iron deficiency anemia type: other iron deficiency Qualified Code(s): D50.8 - Other iron deficiency anemias Code(s): D50.9 - Iron deficiency anemia, unspecified Status: Chronic Assessment and Plan: * Continue Iron Supplementation. * Date of discharge, 07/12/23: Continue iron supplementation at home. (6) Current use of [facility] anticoagulation: Code(s): Z79.01 - termite treater (current) use of anticoagulants Status: Chronic Assessment and Plan: * Continue Xarelto for her chronic A-fib. * Monitor for any s/s of bleeding. * Date of discharge, 07/12/23: Continue Xarelto (7) Afib: Qualifiers: Atrial fibrillation type: unspecified chronic Qualified Code(s): I48.20 - Chronic atrial fibrillation, unspecified Code(s): I48.91 - Unspecified atrial fibrillation Status: Chronic Assessment and Plan: * Continue Xarelto * Currently on Telemetry * Awaiting ECHO results. * Date of discharge, 07/12/23: ECHO was performed that shows normal LVSF with EF of 55-60%. Cardiology has consulted and have no new recommendations post discharge. She is signed off of by Cardiology. DS: Summary Hospital Course Reason for hospitalization: Fatigue Generalized weakness Hospital Course: This 88 year old female pt with PMH of HTN, CKD3, A-fib on chronic Xarelto, Chronic diastolic heart failure peptic ulcer disease and deficiency anemia was admitted to the hospital on July 10, 2023 after presenting through the emergency room with complaints of having increased weakness, fatigue for several days prior. initial thought was that graciela
--- NOTE | 2023-07-12 11:36 | PM.DS ---
DS: Admitting Diagnosis Discharge Date 07/12/23 Admitting Diagnosis CHF Exacerbation CKD3 Edema BLE Gastric ulcer EUNICE shelter use of anticoagulants Atrial fibrillation, chronic DS: Discharge Diagnosis Discharge Diagnosis (1) Acute exacerbation of CHF (congestive heart failure): Qualifiers: Heart failure type: combined systolic and diastolic Qualified Code(s): I50.43 - Acute on chronic combined systolic (congestive) and diastolic (congestive) heart failure Code(s): I50.9 - Heart failure, unspecified Status: Acute Assessment and Plan: Last ECHO is unknown. ECHO ordered for today. Continue telemetry Continue Fluid Restriction Accurate I&O Daily weights Trend labs and VS. Mysql Dba consult for Heart Failure and Dietitian consult for heart failure. Continue Lasix. Date of discharge, 07/12/23: Cardiology has evaluated, ECHO is performed. Pt. is found not to be in acute exacerbation of heart failure, and will continue with all home medications as previously ordered. (2) Stage 3a chronic kidney disease (CKD): Code(s): N18.31 - Chronic kidney disease, stage 3a Status: Chronic Assessment and Plan: Monitor labs and UOP Degree of anemia is mild. Date of discharge, 07/12/23: Stable without any further decline. (3) Edema, lower extremity: Code(s): R60.0 - Localized edema Status: Chronic Assessment and Plan: Non-pitting. Monitor Continue diuretics Date of discharge, 07/12/23: Stable and chronic. No new worsening and no pitting. Suspect this is pt's baseline edema. (4) History of gastric ulcer: Code(s): Z87.19 - Personal history of other diseases of the digestive system Status: Chronic Assessment and Plan: Continue PPI therapy Date of discharge, 07/12/23: Continue PPI at home. (5) Iron deficiency anemia: Qualifiers: Iron deficiency anemia type: other iron deficiency Qualified Code(s): D50.8 - Other iron deficiency anemias Code(s): D50.9 - Iron deficiency anemia, unspecified Status: Chronic Assessment and Plan: Continue Iron Supplementation. Date of discharge, 07/12/23: Continue iron supplementation at home. (6) Current use of intermodal owner operator truck driver anticoagulation: Code(s): Z79.01 - shelter (current) use of anticoagulants Status: Chronic Assessment and Plan: Continue Xarelto for her chronic A-fib. Monitor for any s/s of bleeding. Date of discharge, 07/12/23: Continue Xarelto (7) Afib: Qualifiers: Atrial fibrillation type: unspecified chronic Qualified Code(s): I48.20 - Chronic atrial fibrillation, unspecified Code(s): I48.91 - Unspecified atrial fibrillation Status: Chronic Assessment and Plan: Continue Xarelto Currently on Telemetry Awaiting ECHO results. Date of discharge, 07/12/23: ECHO was performed that shows normal LVSF with EF of 55-60%. Cardiology has consulted and have no new recommendations post discharge. She is signed off of by Cardiology. DS: Summary Hospital Course Reason for hospitalization: Fatigue Generalized weakness Hospital Course: This 88 year old female pt with PMH of HTN, CKD3, A-fib on chronic Xarelto, Chronic diastolic heart failure peptic ulcer disease and deficiency anemia was admitted to the hospital on July 10, 2023 after presenting through the emergency room with complaints of having increased weakness, fatigue for several days prior. initial thought was that patient was experiencing a heart failure exacerbation. She was admitted to the hospital, diuresis was continued and Cardiology was consulted with echocardiogram ordered. As her hospitalization has been favorable with normal ejection fraction noted on echocardiogram and Cardiology consult without any changes in heart medications. Her renal function although abnormal has been improved over her previous. She does have bilateral lower extremity edema, ho
[2023-07-12 12:00] VITALS: PULSE 79
== END 2023-07-12 13:36 | DRG 292 ==
LOC: ANHED 17:27 → ANH2MED 23:16
PROVIDERS: Nurse Practitioner; Nurse Practitioner Family; Admitting Provider Internal Medicine; Emergency Provider Physician Assistant; PCP Family Medicine; Visit Provider Nurse Practitioner Adult Health
DX: I13.0 Hypertensive heart and chronic kidney disease with heart failure and stage 1 through stage 4 chronic kidney disease, or unspecified chronic kidney disease (principal); I48.20 Chronic atrial fibrillation, unspecified; I50.32 Chronic diastolic (congestive) heart failure; N18.31 Chronic kidney disease, stage 3a; D50.9 Iron deficiency anemia, unspecified; Z20.822 Contact with and (suspected) exposure to COVID-19; Z87.19 Personal history of other diseases of the digestive system; Z79.01 Long term (current) use of anticoagulants; Z87.11 Personal history of peptic ulcer disease; Z85.3 Personal history of malignant neoplasm of breast; Z90.49 Acquired absence of other specified parts of digestive tract; Z90.710 Acquired absence of both cervix and uterus; Z98.49 Cataract extraction status, unspecified eye
CPT/HCPCS: 36415; 70450; 71045; 80048; 80053; 80061; 81001; 83880; 84484; 85025; 87637; 93005; 93306; 96374; 97161; 97165; 97530; 99285; A9270; G0378; J1940

== ENCOUNTER 2024-05-30 12:50 | Inpatient (IN) | payer MEDICARE, OTHER, SELFPAY ==
[2024-05-30] VITALS (15 sets, daily range): BP systolic 151–168; BP diastolic 66–100; PULSE 45–69; RESP 14–22; TEMP 36.2–36.8; O2SAT 94–100; BMI 27.7
--- NOTE | ~2024-05-30 | CT_ITS ---
CT chest abdomen pelvis w con Ordering provider: Wayne Hampton MD History: 88 years Female with . AMS/Weakness . Comparison: None. Technique: CT chest with IV contrast. CT abdomen and pelvis CT abdomen and pelvis with IV and with or al contrast. Radiation reduction technique utilized.The dose-length product was 866.69 mGy-cm. 100 mL Omnipaque 35 0 was given IV. FINDINGS: CHEST: --VISUALIZED THORACIC INLET: Small right thyroid nodule. Ultrasound evaluation advised. --MEDIASTINUM: Aorta/coronary arteries: Mild atheromatous disease. Heart/other: The heart is slightly enlarged. Lymph nodes: No mediastinal or hilar adenopathy. --LUNGS: Bilateral lung interstitial thickening with groundglass appearance. This may be due to poor inspiration but atelectasis or early pneumonia or edema cannot be excluded. Otherwise, No pulmonary n odules or masses. No pneumothorax. --MUSCULOSKELETAL: Soft tissues: The superficial soft tissues are normal. Bones: Age appropriate degenerative changes of the spine. No suspicious bony lytic or sclerotic lesio ns. Severe kyphosis with chronic loss of volume seen in the midthoracic vertebrae. ABDOMEN/PELVIS: --MUSCULOSKELETAL: Bones: Age appropriate degenerative changes of the spine. No suspicious bony lytic or sclerotic lesio ns. Superficial soft tissues: The superficial soft tissues are normal. --UPPER ABDOMINAL ORGANS: Liver: Normal. Gallbladder: Normal. Spleen: Normal. Stomach/duodenum: Slightly thickened wall. Evaluation for gastritis advised. Pancreas: Slightly atrophic. Adrenals: Normal. Kidneys: Tiny stone in the left kidney lower pole. Simple Cyst in the right kidney upper pole measuri ng 2.5 cm. --PELVIC ORGANS: The bladder is normal. No bladder stones. --BOWEL AND MESENTERY: Colon: No evidence of diverticulitis. Fecal material is loaded in the colon suggestive of constipatio n. The appendix is not demonstrated. Small Bowel: Normal. No obstruction. Peritoneum/mesentery: No free air or free fluid. No mesenteric lymphadenopathy. Small mesenteric lymp h nodes seen with the largest measures 1.1 cm. --RETROPERITONEUM: Mild atheromatous disease of the abdominal aorta. Slight narrowing of the origin of the celiac and superior mesenteric arteries. No retroperitoneal lymphadenopathy. IMPRESSION: CHEST: 1. Small thyroid nodule in the right lobe. Ultrasound evaluation advised. 2. Slight cardiomegaly. 3. Bilateral lung interstitial thickening with groundglass appearance. Differential include poor ins piration versus atelectasis versus pneumonia or edema. Follow-up and clinical correlation advised. ABDOMEN/PELVIS: 1. Slightly thickened wall of the stomach. Clinical evaluation for gastritis advised. 2. Atrophic pancreas. 3. Tiny stone in the left kidney lower pole. Cyst in the right kidney. 4. Constipation. Reviewed, dictated and finalized at location [facility]. [employer] IMPRESSION: CHEST: 1. Small thyroid nodule in the right lobe. Ultrasound evaluation advised. 2. Slight cardiomegaly. 3. Bilateral lung interstitial thickening with groundglass appearance. Differe ntial include poor inspiration versus atelectasis versus pneumonia or edema. Fo llow-up and clinical correlation advised. ABDOMEN/PELVIS: 1. Slightly thickened wall of the stomach. Clinical evaluation for gastritis a dvised. 2. Atrophic pancreas. 3. Tiny stone in the left kidney lower pole. Cyst in the right kidney. 4. Constipation.
--- NOTE | ~2024-05-30 | CT_ITS ---
EXAMINATION: CT brain wo con DATE: 05/30/2024 14:02 INDICATION: Confusion TECHNIQUE: Computed tomography (CT) of the head was performed without intravenous contrast. The mA wa s adjusted according to patient size. Iterative reconstruction technique was employed. Exam dose: 68 1.00 mGy-cm total exam DLP. COMPARISON: 07/09/2023 CT brain FINDINGS: There is a large chronic right parieto-occipital infarct. No intracranial mass lesion or hemorrhage or recent cerebrovascular accident is evident. No midline s hift or mass effect. There is cerebral atherosclerosis including calcification of the carotid siphon internal carotid paul gabby. There is nonspecific diminished attenuation the cerebral white matter, likely due to chronic sm all vessel ischemic changes. There is moderately prominent central and cortical cerebral and cerebellar volume loss. No subdural or epidural hematoma. The orbits are unremarkable. The mastoid air cells and paranasal sinuses are normally developed and aerated. No fracture or bone destruction of the cranial vault IMPRESSION: Stable chronic right parieto-occipital infarct Central and cortical cerebral atrophy Cerebral atherosclerosis and chronic small vessel ischemic changes of the cerebral white matter No acute intracranial finding or significant change since 07/09/2023 Reviewed, dictated and finalized at [facility]. Reviewed, dictated and finalized at location [facility]. PMENT OPERATOR/LABORER/SUPERVISOR IMPRESSION: Stable chronic right parieto-occipital infarct Central and cortical cerebral atrophy Cerebral atherosclerosis and chronic small vessel ischemic changes of the cereb ral white matter No acute intracranial finding or significant change since 07/09/2023
--- NOTE | ~2024-05-30 | XR_ITS ---
XR chest 1V portable DATE: 05/30/2024 13:53 INDICATION: Bradycardia. Confusion. TECHNIQUE: Portable upright AP chest on 05/30/2024 at 1348 hours COMPARISON: 07/12/2023 portable AP chest 04/03/2021 FINDINGS: Multiple surgical clips are noted at the left axillary region. There is cardiomegaly. Aortic arch and descending thoracic aortic calcification. There is mild pulmonary vascular congestion and redistribution, prominence of the minor fissure sugge sting subpleural edema There is mild elevation of the left leaf of the diaphragm. There is bibasilar infiltrate, atelectasis and/or fibrotic change. The lungs otherwise appear clear. Diffuse osteopenia. IMPRESSION: . Cardiomegaly, mild congestive changes Bibasilar infiltrate, atelectasis and/or fibrotic change Reviewed, dictated and finalized at [facility]. [employer]
--- NOTE | 2024-05-30 13:16 | ECG_ITS ---
Test Date: 2024-05-30 15:31:33 Measurements Intervals [place] Rate: 57 P: 0 AL: 0 QRS: -4 QRSD: 106 T: 33 QT: 471 QTc: 462 Interpretive Statements ATRIAL FIBRILLATION WITH SLOW VENTRICULAR RESPONSE INCOMPLETE RIGHT BUNDLE BRANCH BLOCK LEFT VENTRICULAR HYPERTROPHY BASELINE ARTIFACT- I, II, III, AVR, AVL, AVF, V1-V3 ABNORMAL ECG No previous ECG available for comparison Electronically Signed On 05-30-2024 19:23:25 GRADES 7 8 TUTOR by Mark Burnette D.O.
[2024-05-30 13:37] LABS: Alveolar/Arterial O2 Gradient 22.2 mmHg; Base Excess ABG -1.7 mEq/l (+/-2.0); Fractional Inspired Oxygen 21 %; Oxygen Content ABG 19.6 %vol (16.0-22.0); Oxygen Saturation ABG 96.8 % (95.0-100.0); Oxyhemoglobin 94.6 % THb (90.0-100.0); PCO2 ABG 34.5 mmHg (35.0-45.0); PO2 ABG 86.2 mmHg (80.0-100.0); Total Hemoglobin 14.7 g/dL (12.0-18.0); pH ABG 7.423 (7.350-7.450)
[2024-05-30 13:38] LABS: Device ROOM AIR; Modified Allen's Test Pass; Site Drawn RIGHT RADIAL
[2024-05-30 14:00] LABS: Basophils Percent Auto 0.6 % (0.2-1.2); Eosinophils Absolute Auto 0.1 K/mm3 (0-0.3); Eosinophils Percent Auto 2.4 % (0-4.4); Immature Granulocyte Absolute 0.02 K/mm3 (0.00-0.031); Immature Granulocyte Percent A 0.4 % (0-0.5); Lymphocytes Absolute Auto 0.65 K/mm3 (0.9-3.2); Lymphocytes Percent Auto 13.9 % (18.3-44.2); Mean Corpuscular HGB Conc 33.3 g/dl (32-36); Mean Corpuscular Hemoglobin 31.3 pg (26-34); Mean Platelet Volume 10.6 fl (7.4-10.4); Monocytes Absolute Auto 0.4 K/mm3 (0.1-0.6); Monocytes Percent Auto 8.8 % (2.6-8.5); Neutrophils Absolute Auto 3.5 K/mm3 (1.3-6.7); Neutrophils Percent Auto 73.9 % (45.5-73.1); Platelet Count Result 156 k/mm3 (150-375); Red Blood Count 4.47 M/mm3 (4.2-5.4); Red Cell Distribution Width 14.6 % (11.5-14.5); White Blood Count 4.7 K/mm3 (4.5-10.0)
[2024-05-30 14:04] LABS: INR 1.3; Prothrombin Time 16.9 Seconds (11.1-14.7)
[2024-05-30 14:05] LABS: Ethanol < 10 mg/dL (<10); Partial Thromboplastin Time 39.7 Seconds (22.3-36.8)
[2024-05-30 14:06] LABS: Lactic Acid Reflex 1.6 mmol/L (0.7-2.0)
[2024-05-30 14:09] LABS: Alanine Aminotransferase 43 U/L (6-35); Alkaline Phosphatase 77 U/L (38-126); Anion Gap 6 mmol/L (4-12); Aspartate Amino Transferase 43 U/L (14-36); Bilirubin,Total 0.8 mg/dL (0.2-1.3); Blood Urea Nitrogen 34 mg/dL (7-17); Calcium 9.6 mg/dL (8.4-10.2); Carbon Dioxide 26 mmol/L (22-30); Chloride 109 mmol/L (98-107); Estimated Glomerular Filt Rate 52; Glucose 123 mg/dL (65-110); Lipase 106 U/L (23-300); Magnesium 2.3 mg/dL (1.6-2.3); Phosphorus 3.6 mg/dL (2.5-4.5); Potassium 4.5 mmol/L (3.4-5.0); Sodium 141 mmol/L (137-145)
[2024-05-30 14:10] LABS: Add Urine Microscopic? YES; Appearance Urine Clear (Clear); Bacteria Urine None Seen /hpf; Bilirubin Urine Negative (Negative); Blood Urine 1+ (Negative); Color Urine Yellow (Yellow); Glucose Urine UA Negative (Negative); Ketones Urine Negative (Negative); Leukocyte Esterase Ur Negative LEU/UL (Negative); Need Manual Microscopic Reviewed; Nitrate Urine Negative (Negative); Non Pathogenic Casts 0-2; Protein Urine Negative (Negative); Specific Grav Ur 1.012 (1.001-1.035); Squamous Epithelial Cell Urine None Seen /hpf (Few); WBC Urine 0-5 /hpf (0-3)
[2024-05-30 14:16] LABS: NT Pro B Type Natriuretic Pept 1410 pg/mL (19.9-100)
[2024-05-30 14:19] LABS: Troponin I < 0.012 ng/mL (0.000-0.034)
[2024-05-30 14:25] LABS: Amphetamine Screen Urine Negative (Negative); Barbiturate Screen Urine Negative (Negative); Benzodiazepines Screen Urine Negative (Negative); Cannabinoid Screen Urine Negative (Negative); Cocaine Screen Urine Negative (Negative); Methadone Screen Urine Negative (Negative); Opiate Screen Urine Negative (Negative); Phencyclidine Screen Urine Negative (Negative)
[2024-05-30 17:28] LABS: Troponin I < 0.012 ng/mL (0.000-0.034)
[2024-05-30 17:42] LABS: Influenza A QL RT-PCR Negative (Negative); Influenza B QL RT-PCR Negative (Negative); RSV RNA, RT-PCR Negative (Negative); SARS-CoV-2 RNA PCR Negative (Negative)
--- NOTE | 2024-05-30 19:04 | ED_ITS ---
HPI - General Adult General Chief complaint: Weakness Stated complaint: weakness/AMS Time Seen by Provider: 05/30/24 13:10 History of Present Illness HPI narrative: This is an 88-year-old female with dementia presenting for increased confusion and weakness. Patient was started on donepezil about 2 weeks ago for her dementia. Over the last 3-4 days her daughter has noted that she has been doing significantly worse. The patient herself is A&O times 1-2 and cannot provide any meaningful history but does not seem to have any complaints or problems at this time. Related Data Home Medications Medication Instructions Recorded Confirmed ascorbic acid (vitamin C) 500 mg 500 mg PO DAILY 08/14/19 07/18/23 capsule,extended release magnesium 200 mg tablet 200 mg PO DAILY 08/14/19 07/18/23 ferrous sulfate 324 mg (65 mg 324 mg PO DAILY 07/10/23 07/18/23 iron) tablet,delayed release Allergies Allergy/AdvReac Type Severity Reaction Status Date / Time memantine Allergy Unknown Unknown Verified 10/16/23 12:32 [facility] Past Medical History Medical History Afib Chronic diastolic CHF (congestive heart failure) Essential (primary) hypertension History of breast cancer History of gastric ulcer Iron deficiency anemia Surgical History Surgical History H/O cataract extraction History of appendectomy History of hysterectomy History of left mastectomy History of tonsillectomy and adenoidectomy Family History Family History Father Congestive heart failure Heart disease Social History Social History Social History: the patient lives at [facility] living with her . Her is listed as a durable power claim attorney for healthcare as well as her daughter. The patient has a modified code where she will allow CPR but does not want to be on a ventilator she is a DNI. 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 She is a lifelong nonsmoker no alcohol marijuana or illicit drugs. Smoking status: Never smoker Second hand tobacco smoke exposure: No Alcohol intake: never Substance use: never Substance use type: does not use Do You Feel Safe in your Home?: Yes Lack of Transportation: No Lack of Food: Never True Current Housing: I Have Housing Concerned About Future Housing: No Difficulty Paying Gas/Electric Bills: No Difficulty Paying for Meds: No Currently Unemployed: No Education: High School Diploma/GED Difficulty w/ Childcare or Family Care: No Living arrangements: with family Occupation/Education: other Gender identity (if verbalized by the patient): Female Spiritual care concerns: No Exam Narrative: APPEARANCE: Patient is lying supine in bed, in no apparent distress, A&O times 1-2 Head: atraumatic. EYES: EOMI, NOSE: Atraumatic NECK: Trachea midline RESPIRATORY: No increased rate of breathing CTAB CARDIOVASCULAR: RRR,no pitting edema ABDOMINAL: Non-distended soft nontender MUSCULOSKELETAl: No obvious deformities NEURO: Alert. Moving 4/4 extremities to command SKIN:: Warm, dry. Normal color PSYCHIATRIC: Normal affect Course Vital Signs Vital signs: Vital Signs Pulse Rate 45 L 05/30/24 12:52 Respiratory Rate 18 05/30/24 12:52 Blood Pressure 159/66 H 05/30/24 12:52 Pulse Oximetry 100 05/30/24 12:52 Oxygen Delivery Room Air 05/30/24 12:52 Temperature 97.8 F 05/30/24 18:17 Pulse Rate 61 05/30/24 18:46 Respiratory Rate 21 H 05/30/24 18:46 Blood Pressure 157/98 H 05/30/24 18:46 Pulse Oximetry 95 05/30/24 18:17 Oxygen Delivery Room Air 05/30/24 12:52 Medical Decision Making [facility] Narrative Medical decision making narrative: -Course: this is an 88-year-old female with dementia presenting for worsening functional status. broad workup including CT head C-spine chest abdomen pelvis and a barrage of laboratory studies were obtained. CT chest and pelvis showed ground-glass opacities in lung which could be pneumonia/ atelectatisis/edema. Patient will be started on antibiotics to cover pneumonia. patient has history of CHF but appears euvolemic. no resp distress or oxygen requirements. We will hold off on fluids/diuresis. It is also possible that recently started on donepezil which could be contributing to her decline. patient will be admitted to the hospital for further management of her altered mental status. -DDX includes but is not limited to: Delirium due to infection, medication side effect, progression of dementia -Hx from independent Sources: Daughter @ bedside -Independent interpretation of studies: labs imaging reviewed Independent EKG interpretation: Rhythm atrial fibrillation, Rate [57], [place] -[normal], AL -none, QRS [narrow], QTC [normal], T waves -[negative for concerning inversions], ST Segments - [Negative for concerning elevations] Final interpretations: atrial fibrillation with slow ventricular response - patient is on metoprolol and donepezil can also cause bradycardia -Discussion of Management/Consultants: Noa -Shared decision making / Disposition:Admitted Vital Signs Vital Signs: Vital Signs Pulse Rate 45 L 05/30/24 12:52 Respiratory Rate 18 05/30/24 12:52 Blood Pressure 159/66 H 05/30/24 12:52 Pulse Oximetry 100 05/30/24 12:52 Oxygen Delivery Room Air 05/30/24 12:52 Temperature 97.8 F 05/30/24 18:17 Pulse Rate 61 05/30/24 18:46 Respiratory Rate 21 H 05/30/24 18:46 Blood Pressure 157/98 H 05/30/24 18:46 Pulse Oximetry 95 05/30/24 18:17 Oxygen Delivery Room Air 05/30/24 12:52 Lab Data 05/30/24 13:45 05/30/24 13:45 Labs: Lab Results 05/30/24 05/30/24 Range/Units 13:45 17:02 WBC 4.7 (4.5-10.0) K/mm3 RBC 4.47 (4.2-5.4) M/mm3 Hgb 14.0 (12.0-15.0) g/dL Hct 42.0 (37.0-47.0) % MCV 94.0 (80-100) fl MCH 31.3 (26-34) pg MCHC 33.3 (32-36) g/dl RDW 14.6 H (11.5-14.5) % Plt Count 156 (150-375) k/mm3 MPV 10.6 H (7.4-10.4) fl Immature Gran % (Auto) 0.4 (0-0.5) % Neut % (Auto) 73.9 H (45.5-73.1) % Lymph % (Auto) 13.9 L (18.3-44.2) % [place] % (Auto) 8.8 H (2.6-8.5) % Eos % (Auto) 2.4 (0-4.4) % Baso % (Auto) 0.6 (0.2-1.2) % Lymph # (Auto) 0.65 L (0.9-3.2) K/mm3 [place] # (Auto) 0.4 (0.1-0.6) K/mm3 Eos # (Auto) 0.1 (0-0.3) K/mm3 Baso # (Auto) 0.0 (0.0-0.1) K/mm3 Abs Immat Gran (auto) 0.02 (0.00-0.031) K/mm3 Absolute Neuts (auto) 3.5 (1.3-6.7) K/mm3 Absolute Nucleated RBC 0.000 (0.0-0.012) K/mm3 Nucleated RBC % 0.0 (0.0-0.2) % PT 16.9 H (11.1-14.7) Seconds INR 1.3 APTT 39.7 H (22.3-36.8) Seconds Sodium 141 (137-145) mmol/L Potassium 4.5 (3.4-5.0) mmol/L Chloride 109 H (98-107) mmol/L Carbon Dioxide 26 (22-30) mmol/L Anion Gap 6 (4-12) mmol/L BUN 34 H (7-17) mg/dL Creatinine 1.00 (0.7-1.0) mg/dL Estim Creat Clear Calc Not Reportable Estimated GFR 52 L (59 - ) Glucose 123 H (65-110) mg/dL Lactic Acid 1.6 (0.7-2.0) mmol/L Calcium 9.6 (8.4-10.2) mg/dL Phosphorus 3.6 (2.5-4.5) mg/dL Magnesium 2.3 (1.6-2.3) mg/dL Total Bilirubin 0.8 (0.2-1.3) mg/dL AST 43 H (14-36) U/L ALT 43 H (6-35) U/L Alkaline Phosphatase 77 (38-126) U/L Troponin I < 0.012 < 0.012 (0.000-0.034) ng/mL NT-Pro-B Natriuret Pep 1410 H (19.9-100) pg/mL Total Protein 7.0 (6.3-8.2) g/dL Albumin 4.0 (3.5-5.1) g/dL Lipase 106 (23-300) U/L TSH (Reflex) 2.860 (0.465-4.68) uIU/mL Urine Color Yellow (Yellow) Urine Appearance Clear (Clear) Urine pH 5.0 (5.0-9.0) Ur Specific [place] 1.012 (1.001-1.035) Urine Protein Negative (Negative) mg/dL Urine Glucose (UA) Negative (Negative) mg/dL Urine Ketones Negative (Negative) mg/dL Ur Blood (Man) 1+ H (Negative) Urine Nitrate Negative (Negative) Urine Bilirubin Negative (Negative) Urine Urobilinogen 1.0 (<2.0) mg/dL Add Ur Microanalysis Reviewed Leukocyte Esterase Rfl Negative (Negative) FAVIAN/UL Urine RBC 11-20 H (0-2) /hpf Urine WBC 0-5 (0-3) /hpf Ur Squamous Epith Cells None seen (Few) /hpf Urine Bacteria None seen /hpf Urine Casts 0-2 Urine Opiates Screen Negative (Negative) Urine Methadone Screen Negative (Negative) Ur Barbiturates Screen Negative (Negative) Ur Phencyclidine Scrn Negative (Negative) Ur Amphetamine Screen Negative (Negative) U Benzodiazepines Scrn Negative (Negative) Urine Cocaine Screen Negative (Negative) U Cannabinoids Screen Negative (Negative) Ethyl Alcohol < 10 (<10) mg/dL Influenza A (RT-PCR) Negative (Negative) Influenza B (RT-PCR) Negative (Negative) RSV (RT-PCR) Negative (Negative) SARS-CoV-2 RNA (RT-PCR) Negative (Negative) ABG Data ABG results: 05/30/24 13:33 Puncture Site Right radial ABG pH 7.423 ABG pCO2 34.5 L ABG pO2 86.2 ABG PO2/FiO2 Ratio 4.10 ABG HCO3 22.0 ABG O2 Saturation 96.8 ABG O2 Content 19.6 ABG Base Excess -1.7 A-a Gradient 22.2 Oxyhemoglobin 94.6 Total Hemoglobin 14.7 O2 Delivery Device Room air O2 Liters/Min Not Reportable FiO2 21 Discharge Plan Discharge Clinical Impression: Altered mental status Patient Disposition: Still a Patient Condition: Stable Prescriptions: No Action ascorbic acid (vitamin C) 500 mg capsule, extended release 500 mg PO DAILY magnesium 200 mg tablet 200 mg PO DAILY ferrous sulfate 324 mg (65 mg iron) tablet,delayed release (DR/EC) 324 mg PO DAILY Rx Instructions: TAKE 1 TABLET BY MOUTH EVERY DAY potassium chloride 20 mEq packet 20 meq PO DAILY Qty: 100 3RF furosemide 20 mg tablet 20 mg PO DAILY Qty: 90 2RF metoprolol succinate [Toprol XL] 50 mg tablet extended release 24 hr 50 mg PO DAILY Qty: 90 0RF omeprazole 20 mg capsule,delayed release(DR/EC) See Rx Instructions .ROUTE .COMPLEX Qty: 90 2RF Dose Instruction: TAKE 1 CAPSULE DAILY Rx Instructions: TAKE 1 CAPSULE DAILY Xarelto 20 mg tablet 20 mg PO QPM Qty: 90 0RF Hold Instructions: Hold until your appointment with Dr Del Toro. Rx Instructions: must administer with evening meal donepezil 5 mg tablet 5 mg PO QHS Qty: 90 0RF Follow-up/Referrals: Paco Collins MD [Primary Care Provider] -
--- NOTE | 2024-05-30 19:50 | PM.IMHP ---
H&P: HPI History of Present Illness Date/Time: 05/30/24 19:50 Chief Complaint: Increasing confusion. Narrative: This is a pleasant 88-year-old female with dementia, atrial fibrillation on chronic anticoagulation, diastolic dysfunction, chronic kidney disease, gastroesophageal reflux disease, and iron deficiency anemia who presented to the emergency department via private vehicle accompanied by her daughter for evaluation of increasing confusion. The patient is able to provide some history and some of the following is supplemented via a review of her electronic medical records as well as information provided by her daughter. She was started on donepezil proximally 2 weeks ago for her dementia and since that time the patient has seemed to be increasingly confused, worse over the past 3 to 4 days. The patient herself also recognizes that she is feeling confused and says she is having difficulties telling whether or not things are real but she cannot provide further details. Aside from the confusion she does not have any current complaints. She denies vertigo, visual changes, facial droop, difficulty speaking and swallowing, focal weakness, paresthesias, fever, chills, sweats, cold and flu symptoms, chest and pleuritic pain, shortness of breath, abdominal pain, nausea, vomiting, diarrhea, and dysuria. There have been no reports of falls. In the ED: She was afebrile on arrival with stable blood pressures. EKG showed slow atrial fibrillation without acute ST segment changes. Labs are significant for a BUN of 34, creatinine 1.00, lactic acid 1.6, AST 43, ALT 43, proBNP 1410, TSH 2.860. Urinalysis was positive for 1+ blood and 11 to 20 RBC; urine was obtained via straight catheterization. Urine drug screen was negative. She tested negative for influenza, RSV, and COVID. Head CT showed no acute findings or significant changes compared to imaging from 07/09/2023. CT chest, abdomen, and pelvis showed mostly chronic findings though bilateral lung interstitial thickening with ground-glass appearance was noted with a differential to include atelectasis versus pneumonia versus edema versus poor inspiration. She received no interventions in the ED.. She is being admitted for further monitoring and evaluation. Review of Systems Review of Systems: 12 systems were reviewed and are negative except for as per HPI. [facility] Past Medical History Medical History (Updated 05/30/24 @ 22:39 by Libby G Gerling, PA-C) Atrial fibrillation Breast cancer Cancer of left breast Chronic diastolic congestive heart failure Chronic kidney disease Current use of superintendent container terminal anticoagulation Essential (primary) hypertension Gastric ulcer Iron deficiency anemia Surgical History Surgical History (Updated 05/30/24 @ 19:56 by Libby Shepard PA-C) History of appendectomy History of cataract extraction History of hysterectomy History of left mastectomy History of tonsillectomy and adenoidectomy Family History Family History Father Congestive heart failure Heart disease Social History Social History (Updated 05/30/24 @ 22:41 by Libby Shepard PA-C) Social History: Surrogate medical decision maker: Camille Belle, daughter. Code status: Full code. Smoking status: Never smoker Second hand tobacco smoke exposure: No Alcohol intake: never Substance use: never Substance use type: does not use Do You Feel Safe in your Home?: Yes Lack of Transportation: No Lack of Food: Never True Current Housing: I Have Housing Concerned About Future Housing: No Difficulty Paying Gas/Electric Bills: No Difficulty Paying for Meds: No Currently Unemployed: No Education: High School Diploma/GED Difficulty w/ Childcare or Family Care: No Additional living arrangements comments: passed in January 2024. They have 1 daughter who lives locally. She lives at [facility]. Spiritual care concerns: No Meds Home Medications and Allergies Home Medications Medication Instructions Recorded Confirmed Type ascorbic acid (vitamin C) 500 mg 500 mg PO DAILY 08/14/19 05/30/24 History capsule,extended release magnesium 200 mg tablet 200 mg PO HS 08/14/19 05/30/24 History ferrous sulfate 324 mg (65 mg 324 mg PO DAILY 07/10/23 05/30/24 History iron) tablet,delayed release potassium chloride 20 mEq oral 20 meq PO DAILY #100 ea 08/23/23 05/30/24 Rx packet furosemide 20 mg tablet 20 mg PO DAILY #90 tabs 09/06/23 05/30/24 Rx metoprolol succinate 50 mg 50 mg PO DAILY #90 tabs 04/23/24 05/30/24 Rx tablet,extended release 24 hr (Toprol XL) rivaroxaban 20 mg tablet (Xarelto) 20 mg PO QPM #90 tabs 04/23/24 05/30/24 Rx donepezil 5 mg tablet 5 mg PO QHS #90 tabs 05/20/24 05/30/24 Rx omeprazole 20 mg capsule,delayed 20 mg PO DAILY 05/30/24 05/30/24 History release Allergies Allergy/AdvReac Type Severity Reaction Status Date / Time memantine Allergy Unknown Unknown Verified 10/16/23 12:32 Vital Signs Vital Signs - 24 hr 05/30/24 12:52 05/30/24 13:30 05/30/24 14:30 Temperature 97.9 F Pulse Rate 45 L 52 L 52 L Respiratory Rate 18 15 17 Blood Pressure 159/66 H 162/80 H Pulse Oximetry 100 98 Oxygen Delivery Room Air 05/30/24 14:37 05/30/24 14:47 05/30/24 15:02 Temperature 97.9 F 97.9 F Pulse Rate 51 L 55 L 50 L Respiratory Rate 15 22 H 17 Blood Pressure 161/75 H 163/70 H 166/67 H Pulse Oximetry 98 98 98 Oxygen Delivery 05/30/24 15:17 05/30/24 15:31 05/30/24 15:46 Temperature 97.6 F Pulse Rate 54 L 59 L 52 L Respiratory Rate 17 19 16 Blood Pressure 168/80 H 165/88 H 151/76 H Pulse Oximetry 94 Oxygen Delivery 05/30/24 16:45 05/30/24 17:46 05/30/24 18:01 Temperature 97.9 F 98.3 F 98.2 F Pulse Rate 61 67 69 Respiratory Rate 17 14 14 Blood Pressure 158/100 H 160/81 H 166/81 H Pulse Oximetry 95 100 Oxygen Delivery 05/30/24 18:17 05/30/24 18:46 Temperature 97.8 F Pulse Rate 64 61 Respiratory Rate 18 21 H Blood Pressure 167/90 H 157/98 H Pulse Oximetry 95 Oxygen Delivery Exam Narrative: General: Well-developed, nontoxic-appearing elderly female in the semi-Martinez position in bed. HEENT: Normocephalic, atraumatic. PERRL, EOMI. Sclera anicteric. Tacky mucous membranes. Several missing teeth on the bottom. Neck: Supple. No nuchal rigidity or midline vertebral tenderness. Respiratory: Respirations are nonlabored. Lung sounds are a bit coarse at the bases but are otherwise clear to auscultation. Cardiovascular: Bradycardic. Telemetry shows slow atrial fibrillation. Soft murmur at the apex. Gastrointestinal: Abdomen is soft, nontender, and nondistended with positive bowel sounds. Skin: Warm and dry. Scattered, round-oval flesh-colored papules on the exposed skin on the head, neck, and shoulders. Patient is uncertain if she has neurofibromatosis but reports that her daughter has that diagnosis. Extremities: No cyanosis or clubbing. Trace nino ankle edema bilaterally. Radial and pedal pulses intact. Neurological: Alert to name, age, and date of . She is aware that she is in the hospital for confusion. She cannot provide me with the current year or name of the president. Cranial nerves 2-12 are grossly intact. Speech is clear. No facial asymmetry. Generalized weakness without gross focal findings. Psychiatric: Pleasant confused and cooperative with appropriate mood. H&P: Results Labs Labs: Short CBC 05/30/24 Range/Units 13:45 WBC 4.7 (4.5-10.0) K/mm3 Hgb 14.0 (12.0-15.0) g/dL Hct 42.0 (37.0-47.0) % Plt Count 156 (150-375) k/mm3 BMP 05/30/24 13:45 Sodium 141 Potassium 4.5 Chloride 109 H Carbon Dioxide 26 BUN 34 H Creatinine 1.00 Glucose 123 H Calcium 9.6 Cardiac Enzymes 05/30/24 05/30/24 Range/Units 13:45 17:02 Troponin I < 0.012 < 0.012 (0.000-0.034) ng/mL Liver Function 05/30/24 Range/Units 13:45 Total Bilirubin 0.8 (0.2-1.3) mg/dL AST 43 H (14-36) U/L ALT 43 H (6-35) U/L Alkaline Phosphatase 77 (38-126) U/L Albumin 4.0 (3.5-5.1) g/dL Urine 05/30/24 Range/Units 13:45 Urine Color Yellow (Yellow) Urine Appearance Clear (Clear) Urine pH 5.0 (5.0-9.0) Ur Specific [place] 1.012 (1.001-1.035) Urine Protein Negative (Negative) mg/dL Urine Glucose (UA) Negative (Negative) mg/dL Impressions Chest X-Ray 05/30/24 13:59 IMPRESSION: 1. Cardiomegaly, mild congestive changes. 2. Bibasilar infiltrate, atelectasis and/or fibrotic change. Head CT 05/30/24 14:04 IMPRESSION: 1. Stable chronic right parieto-occipital infarct. 2. Central and cortical cerebral atrophy. 3. Cerebral atherosclerosis and chronic small vessel ischemic changes of the cerebral white matter. 4. No acute intracranial finding or significant change since 07/09/2023. Chest/Abdomen/Pelvis CT 05/30/24 16:33 IMPRESSION: CHEST: 1. Small thyroid nodule in the right lobe. Ultrasound evaluation advised. 2. Slight cardiomegaly. 3. Bilateral lung interstitial thickening with groundglass appearance. Differential include poor inspiration versus atelectasis versus pneumonia or edema. Follow-up and clinical correlation advised. ABDOMEN/PELVIS: 1. Slightly thickened wall of the stomach. Clinical evaluation for gastritis advised. 2. Atrophic pancreas. 3. Tiny stone in the left kidney lower pole. Cyst in the right kidney. 4. Constipation. Assessment and Plan Assessment and plan (1) Altered mental status: Code(s): R41.82 - Altered mental status, unspecified Status: Acute (2) Atrial fibrillation with slow ventricular response: Code(s): I48.91 - Unspecified atrial fibrillation Status: Acute (3) Current use of superintendent container terminal anticoagulation: Code(s): Z79.01 - [facility] (current) use of anticoagulants Status: Chronic (4) Chronic kidney disease: Code(s): N18.9 - Chronic kidney disease, unspecified Status: Acute (5) Chronic diastolic congestive heart failure: Code(s): I50.32 - Chronic diastolic (congestive) heart failure Status: Acute (6) Iron deficiency anemia: Qualifiers: Iron deficiency anemia type: other iron deficiency Qualified Code(s): D50.8 - Other iron deficiency anemias Code(s): D50.9 - Iron deficiency anemia, unspecified Status: Chronic Plan The patient presented to the emergency department accompanied by her daughter for evaluation of increasing confusion as detailed in HPI. Labs, imaging, EKG, and all reports were personally reviewed. She was started on donepezil 2 weeks ago and her symptoms seem to have started around that same time. Discontinue donepezil as it can cause worsening confusion and the timeline fits. Unlikely to be stemming from infection as her urinalysis is unremarkable and pneumonia seems unlikely by history. There are no focal findings on exam to suggest stroke. She has not had any recent falls or head trauma. Continue neurologic checks and monitor closely while the donepezil is low to wash out of her system. She is in slow atrial fibrillation and donepezil can also cause bradycardia. Monitor on telemetry overnight. Continue metoprolol with parameters. Renal function is stable on review of previous labs. Blood pressures were reviewed and they are stable. There were multiple findings on CT scan including small thyroid nodule in the right lobe, tiny stone in the left kidney, atrophic pancreatitis, constipation, slightly thickened wall of the stomach, and slight cardiomegaly which are noted and taken into consideration. TSH was within normal limits and she can follow up as an outpatient regarding the thyroid nodule if it is felt necessary. The small stone in the kidney is not causing any issues. Start daily MiraLax. Her abdominal exam is benign she gives no history to suggest gastritis. Pneumonia is unlikely by history in this may be a chronic finding. Her home medications will be reviewed and resumed as appropriate. Findings and treatment plan were discussed with the patient. Questions were solicited and answered to satisfaction. The patient's medical management will be taken over by the hospitalist team in a.m. Quality VTE Prophylaxis VTE prophylaxis: pharmacologic ordered (on rivaroxaban) The patient has been admitted under observation status. Hospitalist [facility] Advance Care Plan I have confirmed that the patient's Advanced Care Plan is present, code status is documented, or surrogate decision maker is listed in patient medical record.: Yes Medication Reconciliation I have utilized all available resources to obtain, update and review the patients current medications (includes all prescriptions, OTC, herbals, cannabis, and nutritional supplements).: Yes
--- NOTE | 2024-05-30 20:47 | PC.NURSE ---
matt bolton to make pt tele.
--- NOTE | 2024-05-30 21:54 | ADMGEN ---
This patient, Annamarie Belle, was admitted to [address] [facility] Surg Room 307-01. Patient/family oriented to hospital policies and general routines including ID bracelet, bed and alarms, visiting hours, pain management, procedures, bathroom and other care routines, personal items, smoking policy, room service/diet, and visiting hours. Information on how to activate the Rapid Response Team has been discussed. Patient/Family are encouraged to report perceived risks to care and to ask questions if they do not understand what they are told or what they should do.
[2024-05-30] MEDS: LACTATED RINGERS 1,000 ML 100 ML IV CONT (23:10)
[2024-05-30] MEDS: MAGNESIUM OXIDE 200 MG TABLET PO (23:34)
[2024-05-31] VITALS (11 sets, daily range): BP systolic 119–146; BP diastolic 53–70; PULSE 46–73; RESP 18; TEMP 36.3–36.6; O2SAT 92–97
[2024-05-31 07:03] LABS: Hematocrit 39.2 % (37.0-47.0); Hemoglobin 13.2 g/dL (12.0-15.0); Immature Platelet Fraction Pct 6.5 % (0.9-11.2); Mean Corpuscular HGB Conc 33.7 g/dl (32-36); Mean Corpuscular Hemoglobin 31.3 pg (26-34); Mean Corpuscular Volume 92.9 fl (80-100); Mean Platelet Volume 10.9 fl (7.4-10.4); Platelet Count Result 140 k/mm3 (150-375); Red Blood Count 4.22 M/mm3 (4.2-5.4); Red Cell Distribution Width 14.7 % (11.5-14.5); White Blood Count 4.4 K/mm3 (4.5-10.0)
[2024-05-31 07:14] LABS: Alanine Aminotransferase 40 U/L (6-35); Albumin Level 3.5 g/dL (3.5-5.1); Alkaline Phosphatase 65 U/L (38-126); Anion Gap 5 mmol/L (4-12); Aspartate Amino Transferase 36 U/L (14-36); Blood Urea Nitrogen 31 mg/dL (7-17); Calcium 9.3 mg/dL (8.4-10.2); Carbon Dioxide 24 mmol/L (22-30); Chloride 109 mmol/L (98-107); Estimated CRCL calculation 50 ml/min; Estimated Glomerular Filt Rate > 60; Glucose 75 mg/dL (65-110); Magnesium 2.2 mg/dL (1.6-2.3); Potassium 4.2 mmol/L (3.4-5.0); Sodium 138 mmol/L (137-145)
[2024-05-31] MEDS: FUROSEMIDE 20 MG TABLET PO (08:10)
[2024-05-31] MEDS: METOPROLOL SUCCINATE EXT REL 50 MG TABCR PO (08:10)
[2024-05-31] MEDS: PANTOPRAZOLE 40 MG TABLET PO (08:14)
[2024-05-31] MEDS: FERROUS SULFATE 325 MG TABLET DR PO (08:14)
[2024-05-31] MEDS: ASCORBIC ACID 500 MG TABLET PO (08:14)
[2024-05-31 08:17] LABS: Folic Acid 12.7 ng/mL (2.76->20)
[2024-05-31] MEDS: polyethylene glycoL 3350 17 GM POWD.PACK PO (08:30)
[2024-05-31] MEDS: POTASSIUM CHLORIDE 20 MEQ PACKET (FOR LIQUID) PO (08:31)
--- NOTE | 2024-05-31 13:06 | P.PNIM_ITS ---
Progress Note: A&P Assessment and Plan (1) Altered mental status: Code(s): R41.82 - Altered mental status, unspecified Status: Acute Assessment and Plan: - Unclear etiology; Possibly secondary to infection vs other. - No significant metabolic derangements noted. - UA negative for UTI. CT Head: No acute intracranial finding or significant change since 07/09/2023. CT Abd/Pelvis: IMPRESSION: Cardiomegaly, mild congestive changes Bibasilar infiltrate, atelectasis and/or fibrotic change. - Blood clultures ordered. - Urine strep pneumo, legionella Ag ordered. - Started on IV abx for possible PNA. - Follow cultures. (2) Atrial fibrillation with slow ventricular response: Code(s): I48.91 - Unspecified atrial fibrillation Status: Acute Assessment and Plan: - Stable. - Continue Metoprolol and Rivaroxaban. (3) Current use of tank terminal gauger anticoagulation: Code(s): Z79.01 - marine oil terminal superintendent (current) use of anticoagulants Status: Chronic Assessment and Plan: - Stable. - Continue Rivaroxaban. (4) Chronic kidney disease: Code(s): N18.9 - Chronic kidney disease, unspecified Status: Acute Assessment and Plan: - Appears baseline compared to previous labs. - (5) Chronic diastolic congestive heart failure: Code(s): I50.32 - Chronic diastolic (congestive) heart failure Status: Acute Assessment and Plan: - Appears compensated. - Continue Lasix. (6) Iron deficiency anemia: Qualifiers: Iron deficiency anemia type: other iron deficiency Qualified Code(s): D50.8 - Other iron deficiency anemias Code(s): D50.9 - Iron deficiency anemia, unspecified Status: Chronic Assessment and Plan: - Appears stable. - Monitor Hgb levels closely. Plan Started on empiric IV abx for possible lung infection. Continue to monitor closely for changes in mentation. Time Spent With Patient Time with patient: 25 - 35 minutes Subjective Date/time seen: 05/31/24 13:06 Patient alert but non-verbal during exam. Interval history: Patient calm on bedrest and looks to be in no acute distress. Review of Systems Review of Systems: 12 systems were reviewed and are negativ e except for as per HPI. ROS unobtainable: Yes unobtainable due to mental status Exam Narrative: General: Alert on bedrest but non-verbal. HEENT: Atraumatic, PERRL, EOM, moist mucosa, anicteric. NECK: Supple. Lungs: Clear bilaterally. Heart: RRR, no murmurs. Abdomen: Soft, non-tender, non-distended, +ve bowel sounds X4 quadrants. Extremities: No edema. 2 + pedal and radial pulses. Skin: Warm and dry. No lesions noted. Neuro: Confused. No focal neuro deficits noted. Psych: Confused. Objective Data Vital Signs Vital Signs: Vital Signs - 24 hr 05/30/24 13:30 05/30/24 14:30 05/30/24 14:37 Temperature 97.9 F 97.9 F Pulse Rate 52 L 52 L 51 L Respiratory Rate 15 17 15 Blood Pressure 162/80 H 161/75 H Pulse Oximetry 98 98 Oxygen Delivery Fraction of Inspired Oxygen 05/30/24 14:47 05/30/24 15:02 05/30/24 15:17 Temperature 97.9 F Pulse Rate 55 L 50 L 54 L Respiratory Rate 22 H 17 17 Blood Pressure 163/70 H 166/67 H 168/80 H Pulse Oximetry 98 98 Oxygen Delivery Fraction of Inspired Oxygen 05/30/24 15:31 05/30/24 15:46 05/30/24 16:45 Temperature 97.6 F 97.9 F Pulse Rate 59 L 52 L 61 Respiratory Rate 19 16 17 Blood Pressure 165/88 H 151/76 H 158/100 H Pulse Oximetry 94 95 Oxygen Delivery Fraction of Inspired Oxygen 05/30/24 17:46 05/30/24 18:01 05/30/24 18:17 Temperature 98.3 F 98.2 F 97.8 F Pulse Rate 67 69 64 Respiratory Rate 14 14 18 Blood Pressure 160/81 H 166/81 H 167/90 H Pulse Oximetry 100 95 Oxygen Delivery Fraction of Inspired Oxygen 05/30/24 18:46 05/30/24 21:40 05/31/24 00:00 Temperature 97.2 F L Pulse Rate 61 64 Respiratory Rate 21 H 18 Blood Pressure 157/98 H 153/67 H Pulse Oximetry 94 Oxygen Delivery Room Air Fraction of Inspired Oxygen 05/31/24 00:00 05/31/24 04:00 05/31/24 06:00 Temperature 97.3 F L Pulse Rate 60 61 62 Respiratory Rate 18 Blood Pressure 146/56 H Pulse Oximetry 93 Oxygen Delivery Fraction of Inspired Oxygen 05/31/24 08:10 05/31/24 09:17 05/31/24 08:00 Temperature Pulse Rate 73 Respiratory Rate Blood Pressure Pulse Oximetry 92 Oxygen Delivery Room Air Room Air Fraction of Inspired Oxygen 21 Intake/Output Intake/Output: Intake & Output 05/28/24 05/29/24 05/30/24 05/31/24 23:59 23:59 23:59 23:59 Intake Total 290 Output Total 100 500 Balance -100 -210 Meds/Results Medications: Active Medications Generic Name Dose Route Start Last Admin Trade Name Freq PRN Reason Stop Dose Admin Acetaminophen 650 mg 05/30/24 22:50 Acetaminophen 325 Mg Tablet PO Q6H PRN Mild Pain (1-3) or Fever Ascorbic Acid 500 mg 05/31/24 09:00 05/31/24 08:14 Ascorbic Acid 500 Mg Tablet PO 500 mg DAILY MARIO Administration Ferrous Sulfate 325 mg 05/31/24 09:00 05/31/24 08:14 Ferrous Sulfate [address] PO 325 mg DAILY MARIO Administration Furosemide 20 mg 05/31/24 09:00 05/31/24 08:10 Furosemide 20 Mg Tablet PO 20 mg DAILY MARIO Administration Magnesium Oxide 200 mg 05/30/24 23:20 05/30/24 23:34 Magnesium Oxide 200 Mg Tablet PO 200 mg HS MARIO Administration Metoprolol Succinate 50 mg 05/31/24 09:00 05/31/24 08:10 Metoprolol Succinate Ext Rel 50 Mg Tabcr PO 50 mg DAILY MARIO Administration Pantoprazole Sodium 40 mg 05/31/24 09:00 05/31/24 08:14 Pantoprazole 40 Mg Tablet PO 40 mg QAM MARIO Administration Polyethylene Glycol 17 gm 05/31/24 09:00 05/31/24 08:30 Polyethylene Glycol 3350 17 Gm Powd.Pack PO 17 gm QAM MARIO Administration Potassium Chloride 20 meq 05/31/24 09:00 05/31/24 08:31 Potassium Chloride 20 Meq Packet (For Liquid) PO 20 meq DAILY MARIO Administration Rivaroxaban 20 mg 05/31/24 17:00 Rivaroxaban 20 Mg Tablet PO 1700 MARIO Radiology Results: ITS Impressions Chest X-Ray 05/30/24 13:59 IMPRESSION: . Cardiomegaly, mild congestive changes Bibasilar infiltrate, atelectasis and/or fibrotic change Head CT 05/30/24 14:04 IMPRESSION: Stable chronic right parieto-occipital infarct Central and cortical cerebral atrophy Cerebral atherosclerosis and chronic small vessel ischemic changes of the cerebral white matter No acute intracranial finding or significant change since 07/09/2023 Chest/Abdomen/Pelvis CT 05/30/24 16:33 IMPRESSION: CHEST: 1. Small thyroid nodule in the right lobe. Ultrasound evaluation advised. 2. Slight cardiomegaly. 3. Bilateral lung interstitial thickening with groundglass appearance. Differential include poor inspiration versus atelectasis versus pneumonia or edema. Follow-up and clinical correlation advised. ABDOMEN/PELVIS: 1. Slightly thickened wall of the stomach. Clinical evaluation for gastritis advised. 2. Atrophic pancreas. 3. Tiny stone in the left kidney lower pole. Cyst in the right kidney. 4. Constipation. Labs Labs: Laboratory Results - last 24 hr 05/30/24 05/30/24 05/30/24 13:33 13:45 17:02 WBC 4.7 RBC 4.47 Hgb 14.0 Hct 42.0 MCV 94.0 MCH 31.3 MCHC 33.3 RDW 14.6 H Plt Count 156 MPV 10.6 H Immature Gran % (Auto) 0.4 Neut % (Auto) 73.9 H Lymph % (Auto) 13.9 L [place] % (Auto) 8.8 H Eos % (Auto) 2.4 Baso % (Auto) 0.6 Lymph # (Auto) 0.65 L [place] # (Auto) 0.4 Eos # (Auto) 0.1 Baso # (Auto) 0.0 Abs Immat Gran (auto) 0.02 Absolute Neuts (auto) 3.5 Absolute Nucleated RBC 0.000 Nucleated RBC % 0.0 % Immature Plt Fraction PT 16.9 H INR 1.3 APTT 39.7 H Puncture Site Right radial ABG pH 7.423 ABG pCO2 34.5 L ABG pO2 86.2 ABG PO2/FiO2 Ratio 4.10 ABG HCO3 22.0 ABG O2 Saturation 96.8 ABG O2 Content 19.6 ABG Base Excess -1.7 A-a Gradient 22.2 Oxyhemoglobin 94.6 Total Hemoglobin 14.7 O2 Delivery Device Room air O2 Liters/Min Not Reportable FiO2 21 Sodium 141 Potassium 4.5 Chloride 109 H Carbon Dioxide 26 Anion Gap 6 BUN 34 H Creatinine 1.00 Estim Creat Clear Calc Not Reportable Estimated GFR 52 L Glucose 123 H Lactic Acid 1.6 Calcium 9.6 Phosphorus 3.6 Magnesium 2.3 Total Bilirubin 0.8 AST 43 H ALT 43 H Alkaline Phosphatase 77 Troponin I < 0.012 < 0.012 NT-Pro-B Natriuret Pep 1410 H Total Protein 7.0 Albumin 4.0 Lipase 106 Vitamin B12 Folate TSH (Reflex) 2.860 Urine Color Yellow Urine Appearance Clear Urine pH 5.0 Ur Specific [place] 1.012 Urine Protein Negative Urine Glucose (UA) Negative Urine Ketones Negative Ur Blood (Man) 1+ H Urine Nitrate Negative Urine Bilirubin Negative Urine Urobilinogen 1.0 Add Ur Microanalysis Reviewed Leukocyte Esterase Rfl Negative Urine RBC 11-20 H Urine WBC 0-5 Ur Squamous Epith Cells None seen Urine Bacteria None seen Urine Casts 0-2 Urine Opiates Screen Negative Urine Methadone Screen Negative Ur Barbiturates Screen Negative Ur Phencyclidine Scrn Negative Ur Amphetamine Screen Negative U Benzodiazepines Scrn Negative Urine Cocaine Screen Negative U Cannabinoids Screen Negative Ethyl Alcohol < 10 Influenza A (RT-PCR) Negative Influenza B (RT-PCR) Negative RSV (RT-PCR) Negative SARS-CoV-2 RNA (RT-PCR) Negative 05/31/24 05:59 WBC 4.4 L RBC 4.22 Hgb 13.2 Hct 39.2 MCV 92.9 MCH 31.3 MCHC 33.7 RDW 14.7 H Plt Count 140 L MPV 10.9 H Immature Gran % (Auto) Neut % (Auto) Lymph % (Auto) [place] % (Auto) Eos % (Auto) Baso % (Auto) Lymph # (Auto) [place] # (Auto) Eos # (Auto) Baso # (Auto) Abs Immat Gran (auto) Absolute Neuts (auto) Absolute Nucleated RBC Nucleated RBC % % Immature Plt Fraction 6.5 PT INR APTT Puncture Site ABG pH ABG pCO2 ABG pO2 ABG PO2/FiO2 Ratio ABG HCO3 ABG O2 Saturation ABG O2 Content ABG Base Excess A-a Gradient Oxyhemoglobin Total Hemoglobin O2 Delivery Device O2 Liters/Min FiO2 Sodium 138 Potassium 4.2 Chloride 109 H Carbon Dioxide 24 Anion Gap 5 BUN 31 H Creatinine 0.70 Estim Creat Clear Calc 50 Estimated GFR > 60 Glucose 75 Lactic Acid Calcium 9.3 Phosphorus Magnesium 2.2 Total Bilirubin 1.0 AST 36 ALT 40 H Alkaline Phosphatase 65 Troponin I NT-Pro-B Natriuret Pep Total Protein 6.0 L Albumin 3.5 Lipase Vitamin B12 554.0 Folate 12.7 TSH (Reflex) 2.590 Urine Color Urine Appearance Urine pH Ur Specific [place] Urine Protein Urine Glucose (UA) Urine Ketones Ur Blood (Man) Urine Nitrate Urine Bilirubin Urine Urobilinogen Add Ur Microanalysis Leukocyte Esterase Rfl Urine RBC Urine WBC Ur Squamous Epith Cells Urine Bacteria Urine Casts Urine Opiates Screen Urine Methadone Screen Ur Barbiturates Screen Ur Phencyclidine Scrn Ur Amphetamine Screen U Benzodiazepines Scrn Urine Cocaine Screen U Cannabinoids Screen Ethyl Alcohol Influenza A (RT-PCR) Influenza B (RT-PCR) RSV (RT-PCR) SARS-CoV-2 RNA (RT-PCR) Quality VTE Prophylaxis VTE prophylaxis: pharmacologic ordered (on rivaroxaban) Hospitalist MIPS Advance Care Plan I have confirmed that the patient's Advanced Care Plan is present, code status is documented, or surrogate decision maker is listed in patient medical record.: Yes Medication Reconciliation I have utilized all available resources to obtain, update and review the patients current medications (includes all prescriptions, OTC, herbals, cannabis, and nutritional supplements).: Yes
[2024-05-31] MEDS: AZITHROMYCIN IV 250 MG in SODIUM CHLORIDE 0.9% IV 250 ML IVPB (14:28)
--- NOTE | 2024-05-31 14:36 | PCOTNOTE ---
Attempted OT evaluation x3. Patient with other care providers then she just got her lunch. Will continue to attempt.
[2024-05-31] MEDS: RIVAROXABAN 20 MG TABLET PO (16:02)
[2024-05-31] MEDS: MAGNESIUM OXIDE 200 MG TABLET PO (20:21)
[2024-06-01] VITALS (7 sets, daily range): BP systolic 132–176; BP diastolic 52–77; PULSE 61–83; RESP 18; TEMP 36.1–36.4; O2SAT 92–97
[2024-06-01 06:49] LABS: Basophils Percent Auto 0.7 % (0.2-1.2); Eosinophils Absolute Auto 0.1 K/mm3 (0-0.3); Eosinophils Percent Auto 3.1 % (0-4.4); Hematocrit 39.5 % (37.0-47.0); Hemoglobin 13.3 g/dL (12.0-15.0); Immature Granulocyte Absolute 0.02 K/mm3 (0.00-0.031); Immature Granulocyte Percent A 0.4 % (0-0.5); Immature Platelet Fraction Pct 5.3 % (0.9-11.2); Lymphocytes Absolute Auto 0.73 K/mm3 (0.9-3.2); Lymphocytes Percent Auto 16.4 % (18.3-44.2); Mean Corpuscular HGB Conc 33.7 g/dl (32-36); Mean Corpuscular Hemoglobin 31.3 pg (26-34); Mean Corpuscular Volume 92.9 fl (80-100); Mean Platelet Volume 10.4 fl (7.4-10.4); Monocytes Absolute Auto 0.7 K/mm3 (0.1-0.6); Monocytes Percent Auto 16.1 % (2.6-8.5); Neutrophils Absolute Auto 2.8 K/mm3 (1.3-6.7); Neutrophils Percent Auto 63.3 % (45.5-73.1); Platelet Count Result 138 k/mm3 (150-375); Red Blood Count 4.25 M/mm3 (4.2-5.4); Red Cell Distribution Width 14.8 % (11.5-14.5); White Blood Count 4.5 K/mm3 (4.5-10.0)
[2024-06-01] MEDS: FERROUS SULFATE 325 MG TABLET DR PO (08:50)
[2024-06-01] MEDS: FUROSEMIDE 20 MG TABLET PO (08:50)
[2024-06-01] MEDS: ASCORBIC ACID 500 MG TABLET PO (08:50)
[2024-06-01] MEDS: PANTOPRAZOLE 40 MG TABLET PO (08:50)
[2024-06-01] MEDS: METOPROLOL SUCCINATE EXT REL 50 MG TABCR PO (08:50)
[2024-06-01] MEDS: POTASSIUM CHLORIDE 20 MEQ PACKET (FOR LIQUID) PO (08:51)
[2024-06-01] MEDS: polyethylene glycoL 3350 17 GM POWD.PACK PO (08:51)
--- NOTE | 2024-06-01 12:02 | PM.IMPN ---
Progress Note: A&P Assessment and Plan (1) Altered mental status: Code(s): R41.82 - Altered mental status, unspecified Status: Acute Assessment and Plan: - Appears to be improving. - Unclear etiology; Possibly secondary to infection vs other. - No significant metabolic derangements noted. - UA negative for UTI. CT Head: No acute intracranial finding or significant change since 07/09/2023. CT Abd/Pelvis: IMPRESSION: Cardiomegaly, mild congestive changes Bibasilar infiltrate, atelectasis and/or fibrotic change. - Blood clultures ordered. - Urine strep pneumo, legionella Ag pending. - Continue IV abx for possible PNA. - Continue to follow cultures. (2) Atrial fibrillation with slow ventricular response: Code(s): I48.91 - Unspecified atrial fibrillation Status: Acute Assessment and Plan: - Stable. - Continue Metoprolol and Rivaroxaban. (3) Current use of supervisor intermediates anticoagulation: Code(s): Z79.01 - jail (current) use of anticoagulants Status: Chronic Assessment and Plan: - Stable. - Continue Rivaroxaban. (4) Chronic kidney disease: Code(s): N18.9 - Chronic kidney disease, unspecified Status: Acute Assessment and Plan: - Appears baseline compared to previous labs. - (5) Chronic diastolic congestive heart failure: Code(s): I50.32 - Chronic diastolic (congestive) heart failure Status: Acute Assessment and Plan: - Appears compensated. - Continue Lasix. (6) Iron deficiency anemia: Qualifiers: Iron deficiency anemia type: other iron deficiency Qualified Code(s): D50.8 - Other iron deficiency anemias Code(s): D50.9 - Iron deficiency anemia, unspecified Status: Chronic Assessment and Plan: - Appears stable. - Monitor Hgb levels closely. Plan Continue empiric IV abx for possible lung infection. Continue to monitor closely for changes in mentation. Time Spent With Patient Time with patient: 15 - 25 minutes Subjective Date/time seen: 06/01/24 12:02 Patient states she feels alright. States feels constipated as she hasn't had a BM since admission. Interval history: Patient calm on bedrest and looks to be in no acute distress. Review of Systems Review of Systems: ROS unobtainable: Yes unobtainable due to mental status Exam Narrative: General: Alert and awake seated on chair. [place] and with some confusion. HEENT: Atraumatic, PERRL, EOM, moist mucosa, anicteric. NECK: Supple. Lungs: Coarse breath sounds bilaterally. Heart: RRR, no murmurs. Abdomen: Soft, non-tender, non-distended, +ve bowel sounds X4 quadrants. Extremities: No edema. 2 + pedal and radial pulses. Skin: Warm and dry. No lesions noted. Neuro: Slightly confused but oriented to self. No focal neuro deficits noted. Psych: Confused but co-operative. Objective Data Vital Signs Vital Signs: Vital Signs - 24 hr 05/31/24 14:00 05/31/24 16:00 05/31/24 20:00 Temperature 97.7 F Pulse Rate 73 46 L Respiratory Rate 18 Blood Pressure 119/70 Pulse Oximetry 95 Oxygen Delivery Room Air 05/31/24 20:00 05/31/24 22:00 06/01/24 00:00 Temperature 97.9 F Pulse Rate 60 59 L 62 Respiratory Rate 18 Blood Pressure 140/53 L Pulse Oximetry 97 Oxygen Delivery 06/01/24 04:00 06/01/24 06:00 06/01/24 08:26 Temperature 97.5 F L Pulse Rate 68 68 Respiratory Rate 18 Blood Pressure 132/63 Pulse Oximetry 92 Oxygen Delivery Room Air 06/01/24 08:50 06/01/24 08:00 Temperature Pulse Rate 68 61 Respiratory Rate Blood Pressure Pulse Oximetry Oxygen Delivery Intake/Output Intake/Output: Intake & Output 05/29/24 05/30/24 05/31/24 06/01/24 23:59 23:59 23:59 23:59 Intake Total 770 315 Output Total 100 500 Balance -100 270 315 Meds/Results Medications: Active Medications Generic Name Dose Route Start Last Admin Trade Name Freq PRN Reason Stop Dose Admin Acetaminophen 650 mg 05/30/24 22:50 Acetaminophen 325 Mg Tablet PO Q6H PRN Mild Pain (1-3) or Fever Ascorbic Acid 500 mg 05/31/24 09:00 06/01/24 08:50 Ascorbic Acid 500 Mg Tablet PO 500 mg DAILY MARIO Administration Ferrous Sulfate 325 mg 05/31/24 09:00 06/01/24 08:50 Ferrous Sulfate [address] PO 325 mg DAILY MARIO Administration Furosemide 20 mg 05/31/24 09:00 06/01/24 08:50 Furosemide 20 Mg Tablet PO 20 mg DAILY MARIO Administration Azithromycin 250 mg/ Sodium 250 mls @ 250 mls/hr 05/31/24 14:00 05/31/24 14:28 Chloride IVPB 250 mls/hr Q24H MARIO Administration Ceftriaxone Sodium 1 gm in 50 mls @ 100 mls/hr 05/31/24 15:00 05/31/24 15:51 Rocephin 1 Gm/Ns 50 Ml IVPB 100 mls/hr Q24H MARIO Administration Magnesium Oxide 200 mg 05/30/24 23:20 05/31/24 20:21 Magnesium Oxide 200 Mg Tablet PO 200 mg HS MARIO Administration Metoprolol Succinate 50 mg 05/31/24 09:00 06/01/24 08:50 Metoprolol Succinate Ext Rel 50 Mg Tabcr PO 50 mg DAILY MARIO Administration Pantoprazole Sodium 40 mg 05/31/24 09:00 06/01/24 08:50 Pantoprazole 40 Mg Tablet PO 40 mg QAM MARIO Administration Polyethylene Glycol 17 gm 05/31/24 09:00 06/01/24 08:51 Polyethylene Glycol 3350 17 Gm Powd.Pack PO 17 gm QAM MARIO Administration Potassium Chloride 20 meq 05/31/24 09:00 06/01/24 08:51 Potassium Chloride 20 Meq Packet (For Liquid) PO 20 meq DAILY MARIO Administration Rivaroxaban 20 mg 05/31/24 17:00 05/31/24 16:02 Rivaroxaban 20 Mg Tablet PO 20 mg 1700 MARIO Administration Radiology Results: ITS Impressions Chest X-Ray 05/30/24 13:59 IMPRESSION: . Cardiomegaly, mild congestive changes Bibasilar infiltrate, atelectasis and/or fibrotic change Head CT 05/30/24 14:04 IMPRESSION: Stable chronic right parieto-occipital infarct Central and cortical cerebral atrophy Cerebral atherosclerosis and chronic small vessel ischemic changes of the cerebral white matter No acute intracranial finding or significant change since 07/09/2023 Chest/Abdomen/Pelvis CT 05/30/24 16:33 IMPRESSION: CHEST: 1. Small thyroid nodule in the right lobe. Ultrasound evaluation advised. 2. Slight cardiomegaly. 3. Bilateral lung interstitial thickening with groundglass appearance. Differential include poor inspiration versus atelectasis versus pneumonia or edema. Follow-up and clinical correlation advised. ABDOMEN/PELVIS: 1. Slightly thickened wall of the stomach. Clinical evaluation for gastritis advised. 2. Atrophic pancreas. 3. Tiny stone in the left kidney lower pole. Cyst in the right kidney. 4. Constipation. Labs Labs: Laboratory Results - last 24 hr 06/01/24 06:33 WBC 4.5 RBC 4.25 Hgb 13.3 Hct 39.5 MCV 92.9 MCH 31.3 MCHC 33.7 RDW 14.8 H Plt Count 138 L MPV 10.4 Immature Gran % (Auto) 0.4 Neut % (Auto) 63.3 Lymph % (Auto) 16.4 L [place] % (Auto) 16.1 H Eos % (Auto) 3.1 Baso % (Auto) 0.7 Lymph # (Auto) 0.73 L [place] # (Auto) 0.7 H Eos # (Auto) 0.1 Baso # (Auto) 0.0 Abs Immat Gran (auto) 0.02 Absolute Neuts (auto) 2.8 Absolute Nucleated RBC 0.000 Nucleated RBC % 0.0 % Immature Plt Fraction 5.3 Quality VTE Prophylaxis VTE prophylaxis: pharmacologic ordered (on rivaroxaban) Hospitalist [facility] Advance Care Plan I have confirmed that the patient's Advanced Care Plan is present, code status is documented, or surrogate decision maker is listed in patient medical record.: Yes Medication Reconciliation I have utilized all available resources to obtain, update and review the patients current medications (includes all prescriptions, OTC, herbals, cannabis, and nutritional supplements).: Yes
[2024-06-01] MEDS: AZITHROMYCIN IV 250 MG in SODIUM CHLORIDE 0.9% IV 250 ML IVPB (13:10)
--- NOTE | 2024-06-01 13:41 | PCPTNOTE ---
Patient unable to follow any instructions does not know where she is and afraid thet we were going to kick her out into the snow. Notified nurse.
[2024-06-01] MEDS: RIVAROXABAN 20 MG TABLET PO (17:33)
[2024-06-01] MEDS: MAGNESIUM OXIDE 200 MG TABLET PO (20:50)
[2024-06-02 06:30] LABS: Basophils Percent Auto 0.7 % (0.2-1.2); Eosinophils Absolute Auto 0.1 K/mm3 (0-0.3); Eosinophils Percent Auto 2.9 % (0-4.4); Hemoglobin 13.7 g/dL (12.0-15.0); Immature Granulocyte Absolute 0.02 K/mm3 (0.00-0.031); Immature Granulocyte Percent A 0.5 % (0-0.5); Immature Platelet Fraction Pct 4.7 % (0.9-11.2); Lymphocytes Absolute Auto 0.66 K/mm3 (0.9-3.2); Mean Corpuscular HGB Conc 33.4 g/dl (32-36); Mean Corpuscular Hemoglobin 31.1 pg (26-34); Mean Platelet Volume 10.5 fl (7.4-10.4); Monocytes Absolute Auto 0.7 K/mm3 (0.1-0.6); Neutrophils Absolute Auto 2.9 K/mm3 (1.3-6.7); Neutrophils Percent Auto 65.9 % (45.5-73.1); Platelet Count Result 143 k/mm3 (150-375); Red Blood Count 4.41 M/mm3 (4.2-5.4); Red Cell Distribution Width 14.9 % (11.5-14.5); White Blood Count 4.4 K/mm3 (4.5-10.0)
[2024-06-02 06:45] VITALS: BP 153/76; PULSE 71; RESP 16; TEMP 35.8; O2SAT 94
[2024-06-02 09:47] VITALS: PULSE 68
[2024-06-02] MEDS: FUROSEMIDE 20 MG TABLET PO (09:47)
[2024-06-02] MEDS: ASCORBIC ACID 500 MG TABLET PO (09:47)
[2024-06-02] MEDS: FERROUS SULFATE 325 MG TABLET DR PO (09:47)
[2024-06-02] MEDS: METOPROLOL SUCCINATE EXT REL 50 MG TABCR PO (09:47)
[2024-06-02] MEDS: polyethylene glycoL 3350 17 GM POWD.PACK PO (09:47)
[2024-06-02] MEDS: PANTOPRAZOLE 40 MG TABLET PO (09:48)
[2024-06-02] MEDS: POTASSIUM CHLORIDE 20 MEQ PACKET (FOR LIQUID) PO (09:48)
--- NOTE | 2024-06-02 13:15 | P.PNIM_ITS ---
Progress Note: A&P Assessment and Plan (1) Altered mental status: Code(s): R41.82 - Altered mental status, unspecified Status: Acute Assessment and Plan: - Possibly related to dementia and worsened by infection. - Appears to be slowly improving. - No significant metabolic derangements noted. - UA negative for UTI. CT Head: No acute intracranial finding or significant change since 07/09/2023. CT Abd/Pelvis: IMPRESSION: Cardiomegaly, mild congestive changes Bibasilar infiltrate, atelectasis and/or fibrotic change. - Blood clultures NGTD. - Urine strep pneumo, legionella Ag pending. - Continue IV abx for possible PNA. - Continue to follow cultures. (2) Atrial fibrillation with slow ventricular response: Code(s): I48.91 - Unspecified atrial fibrillation Status: Acute Assessment and Plan: - Stable. - Continue Metoprolol and Rivaroxaban. (3) Current use of extermination supervisor anticoagulation: Code(s): Z79.01 - senior care (current) use of anticoagulants Status: Chronic Assessment and Plan: - Stable. - Continue Rivaroxaban. (4) Chronic kidney disease: Code(s): N18.9 - Chronic kidney disease, unspecified Status: Acute Assessment and Plan: - Appears baseline compared to previous labs. (5) Chronic diastolic congestive heart failure: Code(s): I50.32 - Chronic diastolic (congestive) heart failure Status: Acute Assessment and Plan: - Appears compensated. - Continue Lasix. (6) Iron deficiency anemia: Qualifiers: Iron deficiency anemia type: other iron deficiency Qualified Code(s): D50.8 - Other iron deficiency anemias Code(s): D50.9 - Iron deficiency anemia, unspecified Status: Chronic Assessment and Plan: - Appears stable. - Monitor Hgb levels closely. Plan Continue empiric IV abx for possible lung infection. Continue to monitor closely for changes in mentation. Time Spent With Patient Time with patient: 15 - 25 minutes Subjective Date/time seen: 06/02/24 13:15 Patient confused on bedrest but appears more alert. Interval history: Patient confused seated on chair but looks to be in no acute distress. Review of Systems Review of Systems: 12 systems were reviewed and are negativ e except for as per HPI. ROS unobtainable: Yes unobtainable due to mental status Exam Narrative: General: Alert seated on chair. [place] and with confusion. HEENT: Atraumatic, PERRL, EOM, moist mucosa, anicteric. NECK: Supple. Lungs: Coarse breath sounds bilaterally. Heart: RRR, no murmurs. Abdomen: Soft, non-tender, non-distended, +ve bowel sounds X4 quadrants. Extremities: No edema. 2 + pedal and radial pulses. Skin: Warm and dry. No lesions noted. Neuro: Confused but oriented to self. No focal neuro deficits noted. Psych: Confused but co-operative. Objective Data Vital Signs Vital Signs: Vital Signs - 24 hr 06/01/24 14:00 06/01/24 21:21 06/01/24 20:00 Temperature 97.1 F L 96.9 F L Pulse Rate 61 83 Respiratory Rate 18 18 Blood Pressure 148/52 H 176/77 H Pulse Oximetry 96 97 Oxygen Delivery Room Air 06/02/24 06:45 06/02/24 07:53 06/02/24 09:47 Temperature 96.4 F L Pulse Rate 71 68 Respiratory Rate 16 Blood Pressure 153/76 H Pulse Oximetry 94 Oxygen Delivery Room Air 06/02/24 09:47 Temperature Pulse Rate Respiratory Rate Blood Pressure Pulse Oximetry Oxygen Delivery Room Air Intake/Output Intake/Output: Intake & Output 05/30/24 05/31/24 06/01/24 06/02/24 23:59 23:59 23:59 23:59 Intake Total 1070 555 300 Output Total 100 500 Balance -100 570 555 300 Meds/Results Medications: Active Medications Generic Name Dose Route Start Last Admin Trade Name Francisq PRN Reason Stop Dose Admin Acetaminophen 650 mg 05/30/24 22:50 Acetaminophen 325 Mg Tablet PO Q6H PRN Mild Pain (1-3) or Fever Ascorbic Acid 500 mg 05/31/24 09:00 06/02/24 09:47 Ascorbic Acid 500 Mg Tablet PO 500 mg DAILY MARIO Administration Ferrous Sulfate 325 mg 05/31/24 09:00 06/02/24 09:47 Ferrous Sulfate [address] PO 325 mg DAILY MARIO Administration Furosemide 20 mg 05/31/24 09:00 06/02/24 09:47 Furosemide 20 Mg Tablet PO 20 mg DAILY MARIO Administration Azithromycin 250 mg/ Sodium 250 mls @ 250 mls/hr 05/31/24 14:00 06/01/24 13:10 Chloride IVPB 250 mls/hr Q24H MARIO Administration Ceftriaxone Sodium 1 gm in 50 mls @ 100 mls/hr 05/31/24 15:00 06/01/24 13:11 Rocephin 1 Gm/Ns 50 Ml IVPB 100 mls/hr Q24H MARIO Administration Magnesium Oxide 200 mg 05/30/24 23:20 06/01/24 20:50 Magnesium Oxide 200 Mg Tablet PO 200 mg HS MARIO Administration Metoprolol Succinate 50 mg 05/31/24 09:00 06/02/24 09:47 Metoprolol Succinate Ext Rel 50 Mg Tabcr PO 50 mg DAILY MARIO Administration Pantoprazole Sodium 40 mg 05/31/24 09:00 06/02/24 09:48 Pantoprazole 40 Mg Tablet PO 40 mg QAM MARIO Administration Polyethylene Glycol 17 gm 05/31/24 09:00 06/02/24 09:47 Polyethylene Glycol 3350 17 Gm Powd.Pack PO 17 gm QAM MARIO Administration Potassium Chloride 20 meq 05/31/24 09:00 06/02/24 09:48 Potassium Chloride 20 Meq Packet (For Liquid) PO 20 meq DAILY MARIO Administration Rivaroxaban 20 mg 05/31/24 17:00 06/01/24 17:33 Rivaroxaban 20 Mg Tablet PO 20 mg 1700 MARIO Administration Radiology Results: ITS Impressions Chest X-Ray 05/30/24 13:59 IMPRESSION: . Cardiomegaly, mild congestive changes Bibasilar infiltrate, atelectasis and/or fibrotic change Head CT 05/30/24 14:04 IMPRESSION: Stable chronic right parieto-occipital infarct Central and cortical cerebral atrophy Cerebral atherosclerosis and chronic small vessel ischemic changes of the cerebral white matter No acute intracranial finding or significant change since 07/09/2023 Chest/Abdomen/Pelvis CT 05/30/24 16:33 IMPRESSION: CHEST: 1. Small thyroid nodule in the right lobe. Ultrasound evaluation advised. 2. Slight cardiomegaly. 3. Bilateral lung interstitial thickening with groundglass appearance. Differential include poor inspiration versus atelectasis versus pneumonia or edema. Follow-up and clinical correlation advised. ABDOMEN/PELVIS: 1. Slightly thickened wall of the stomach. Clinical evaluation for gastritis advised. 2. Atrophic pancreas. 3. Tiny stone in the left kidney lower pole. Cyst in the right kidney. 4. Constipation. Labs Labs: Laboratory Results - last 24 hr 12/02/24 06:19 WBC 4.4 L RBC 4.41 Hgb 13.7 Hct 41.0 MCV 93.0 MCH 31.1 MCHC 33.4 RDW 14.9 H Plt Count 143 L MPV 10.5 H Immature Gran % (Auto) 0.5 Neut % (Auto) 65.9 Lymph % (Auto) 15.0 L [place] % (Auto) 15.0 H Eos % (Auto) 2.9 Baso % (Auto) 0.7 Lymph # (Auto) 0.66 L [place] # (Auto) 0.7 H Eos # (Auto) 0.1 Baso # (Auto) 0.0 Abs Immat Gran (auto) 0.02 Absolute Neuts (auto) 2.9 Absolute Nucleated RBC 0.000 Nucleated RBC % 0.0 % Immature Plt Fraction 4.7 Quality VTE Prophylaxis VTE prophylaxis: pharmacologic ordered (on rivaroxaban) Hospitalist [facility] Advance Care Plan I have confirmed that the patient's Advanced Care Plan is present, code status is documented, or surrogate decision maker is listed in patient medical record.: Yes Medication Reconciliation I have utilized all available resources to obtain, update and review the patients current medications (includes all prescriptions, OTC, herbals, cannabis, and nutritional supplements).: Yes
[2024-06-02] MEDS: RIVAROXABAN 20 MG TABLET PO (17:42)
[2024-06-02] MEDS: AMOXICILLIN/CLAVULANATE K 875-125 MG TAB 1 TABLET PO (21:10)
[2024-06-02] MEDS: MAGNESIUM OXIDE 200 MG TABLET PO (21:10)
[2024-06-02 21:38] VITALS: BP 145/67; PULSE 73; RESP 18; TEMP 36.5; O2SAT 95
[2024-06-03 05:54] VITALS: BP 132/60; PULSE 68; RESP 16; TEMP 36.7; O2SAT 96
[2024-06-03 09:02] VITALS: PULSE 72
[2024-06-03] MEDS: FERROUS SULFATE 325 MG TABLET DR PO (09:02)
[2024-06-03] MEDS: METOPROLOL SUCCINATE EXT REL 50 MG TABCR PO (09:02)
[2024-06-03] MEDS: PANTOPRAZOLE 40 MG TABLET PO (09:02)
[2024-06-03] MEDS: FUROSEMIDE 20 MG TABLET PO (09:02)
[2024-06-03] MEDS: ASCORBIC ACID 500 MG TABLET PO (09:02)
[2024-06-03] MEDS: polyethylene glycoL 3350 17 GM POWD.PACK PO (09:02)
[2024-06-03] MEDS: AMOXICILLIN/CLAVULANATE K 875-125 MG TAB 1 TABLET PO (09:02)
[2024-06-03] MEDS: POTASSIUM CHLORIDE 20 MEQ PACKET (FOR LIQUID) PO (09:03)
[2024-06-03 11:31] LABS: Glucose Point of Care 108 mg/dl (65-105)
--- NOTE | 2024-06-03 11:52 | P.DS_ITS ---
DS: Admitting Diagnosis Discharge Date 06/03/24 Admitting Diagnosis Altered Mental Status DS: Discharge Diagnosis Discharge Diagnosis (1) Altered mental status: Code(s): R41.82 - Altered mental status, unspecified Status: Acute Assessment and Plan: - Possibly related to dementia and worsened by infection. - Appears to be slowly improving, and appears to be at baseline mentation now. - No significant metabolic derangements on admission. - UA negative for UTI. CT Head: No acute intracranial finding or significant change since 07/09/2023. CT Abd/Pelvis: IMPRESSION: Cardiomegaly, mild congestive changes Bibasilar infiltrate, atelectasis and/or fibrotic change. - Blood clultures NGTD. - Urine strep pneumo, legionella Ag pending. - Currently on Augmentin and Azithromycin for possible PNA. - Blood cultures NGTD. (2) Atrial fibrillation with slow ventricular response: Code(s): I48.91 - Unspecified atrial fibrillation Status: Acute Assessment and Plan: - Stable. - Continue Metoprolol and Rivaroxaban. (3) Current use of [facility] anticoagulation: Code(s): Z79.01 - intermediate project manager (current) use of anticoagulants Status: Chronic Assessment and Plan: - Stable. - Continue Rivaroxaban. (4) Chronic kidney disease: Code(s): N18.9 - Chronic kidney disease, unspecified Status: Acute Assessment and Plan: - Appears baseline compared to previous labs. (5) Chronic diastolic congestive heart failure: Code(s): I50.32 - Chronic diastolic (congestive) heart failure Status: Acute Assessment and Plan: - Appears compensated. - Continue Lasix. (6) Iron deficiency anemia: Qualifiers: Iron deficiency anemia type: other iron deficiency Qualified Code(s): D50.8 - Other iron deficiency anemias Code(s): D50.9 - Iron deficiency anemia, unspecified Status: Chronic Assessment and Plan: - Appears stable. - Monitor Hgb levels closely. Plan Discharge to SNF. DS: Summary Hospital Course Reason for hospitalization: Altered Mental Status Hospital Course: Patient was transferred to this facility from the [facility] that she resides with reports of altered mentation. Patient was recently diagnosed with dementia and started on donepezil. She had a slightly low WBC 4.7 on admission but appears to be his baseline. Her labs were fairly unremarkable, including her chemistry. She had a CT Head done: No acute intracranial finding or significant change since 07/09/2023. CT Abd/Pelvis: IMPRESSION: Cardiomegaly, mild congestive changes and Bibasilar infiltrate, atelectasis and/or fibrotic change. Patient had negative Covid PCR, Negative Flu A/B PCR, and negative RSV PCR. Her UA was also negative for infection. No offending medications were noted for her symptoms, and patient was empirically started on Azithromycin and Ceftriaxone for possible PNA. She will be discharged on Augmentin and complete her Azithromycin as well orally. Her mentation appears to be baseline currently, with the patient working with PT/OT for conditioning. Patient is currently stable for transfer to SNF, with no acute distress noted or reported prior to discharge. All her other chronic conditions remained stable inpatient. Status at Discharge Functional status at discharge: uses cane/walker Overall status at discharge: patient is progressing back to baseline Time Spent with Patient Time attestation: Total time spent providing and/or coordinating discharge services: Time spent: Greater than 30 minutes Exam Narrative: General: Alert seated on recliner. [place] and with some confusion. HEENT: Atraumatic, PERRL, EOM, moist mucosa, anicteric. NECK: Supple. Lungs: Faint coarse breath sounds bilaterally. Heart: RRR, no murmurs. Abdomen: Soft, non-tender, non-distended, +ve bowel sounds X4 quadrants. Extremities: No edema. 2 + pedal and radial pulses. Skin: Warm and dry. No lesions noted. Neuro: Confused but oriented to self. No focal neuro deficits noted. Psych: Confused but co-operative. DS: Data Data Completed and Pending Labs on day of discharge: Labs from last 24 hours 06/03/24 06/03/24 11:46 11:20 POC Capillary Glucose 108 H SARS-CoV-2 RNA (RT-PCR) Pending Preliminary micro results at discharge 05/31/24 14:09 Blood Culture - Preliminary Blood 05/31/24 14:24 Blood Culture - Preliminary Blood Discharge Plan Discharge Attending physician on discharge: Jay Moffett Discharging Clinician: Rob Jefferson Anticipated Discharge Date/Time: 06/03/24 12:28 Patient Disposition: SNF Activity: as tolerated Diet: heart healthy Patient Instructions: Rivaroxaban (By mouth) Stand Alone Forms: General Discharge Information Discharge Medications: New amoxicillin-pot clavulanate [Augmentin] 500-125 mg tablet 1 tablet PO Q12H Qty: 10 0RF polyethylene glycol 3350 [Miralax] 17 gram Powder In Packet 17 g PO QAM Qty: 14 0RF azithromycin [Zithromax] 250 mg Tablet 250 mg PO DAILY@1700 Qty: 2 0RF Continued ascorbic acid (vitamin C) 500 mg capsule, extended release 500 mg PO DAILY magnesium 200 mg tablet 200 mg PO HS ferrous sulfate 324 mg (65 mg iron) tablet,delayed release (DR/EC) 324 mg PO DAILY Rx Instructions: TAKE 1 TABLET BY MOUTH EVERY DAY omeprazole 20 mg capsule,delayed release(DR/EC) 20 mg PO DAILY Rx Instructions: TAKE 1 CAPSULE DAILY potassium chloride 20 mEq packet 20 meq PO DAILY Qty: 100 3RF furosemide 20 mg tablet 20 mg PO DAILY Qty: 90 2RF metoprolol succinate [Toprol XL] 50 mg tablet extended release 24 hr 50 mg PO DAILY Qty: 90 0RF Xarelto 20 mg tablet 20 mg PO QPM Qty: 90 0RF Hold Instructions: Hold until your appointment with Dr Del Toro. Rx Instructions: must administer with evening meal donepezil 5 mg tablet 5 mg PO QHS Qty: 90 0RF Date of admission: 05/30/24 19:19 Primary Care Provider: Paco Collisn Admitting Provider: Jay Moffett Attending physician on admission: Jay Moffett Condition: Stable Quality VTE Prophylaxis VTE prophylaxis: pharmacologic ordered (on rivaroxaban) Hospitalist [facility] Heart Failure (Exclusion) Patient has history of Heart Transplant or Left Ventricular Assistive Device?: No IF YES, STOP HERE Heart Failure (Qualifier) Patient has current or prior documentation of LVEF less than or equal to 40%, or mod/servere depressed LVSF?: No IF NO, STOP HERE
[2024-06-03 12:35] LABS: SARS-CoV-2 RNA PCR Negative (Negative)
== END 2024-06-03 13:15 | DRG 194 ==
LOC: ANHED 19:18 → ANH3MEDSUR 21:04
PROVIDERS: Physician Assistant; Admitting Provider Internal Medicine; Emergency Provider Emergency Medicine; PCP Family Medicine; Visit Provider Nurse Practitioner Adult Health
DX: J18.9 Pneumonia, unspecified organism (principal); I13.0 Hypertensive heart and chronic kidney disease with heart failure and stage 1 through stage 4 chronic kidney disease, or unspecified chronic kidney disease; I50.32 Chronic diastolic (congestive) heart failure; F03.90 Unspecified dementia, unspecified severity, without behavioral disturbance, psychotic disturbance, mood disturbance, and anxiety; N18.9 Chronic kidney disease, unspecified; I48.91 Unspecified atrial fibrillation; E04.1 Nontoxic single thyroid nodule; D50.9 Iron deficiency anemia, unspecified; Z20.822 Contact with and (suspected) exposure to COVID-19; Z85.3 Personal history of malignant neoplasm of breast; Z90.49 Acquired absence of other specified parts of digestive tract; Z90.710 Acquired absence of both cervix and uterus; Z98.49 Cataract extraction status, unspecified eye; Z79.01 Long term (current) use of anticoagulants
CPT/HCPCS: 36415; 36600; 70450; 71045; 71260; 74177; 80053; 80307; 81001; 82077; 82607; 82746; 82805; 82948; 83605; 83690; 83735; 83880; 84100; 84443; 84484; 85018; 85025; 85027; 85055; 85610; 85730; 87040; 87449; 87635; 87637; 93005; 97161; 97165; 99285; A9270; J0456; J0696; J7050; J7120; Q9967

== ENCOUNTER 2024-07-13 12:43 | Emergency (ER) | payer MEDICARE, OTHER, SELFPAY ==
[2024-07-13] VITALS (10 sets, daily range): BP systolic 114–139; BP diastolic 50–74; PULSE 48–66; RESP 14–20; TEMP 36.4; O2SAT 93–98
--- NOTE | ~2024-07-13 | CT_ITS ---
History: Fall PROCEDURE: CT head without contrast. COMPARISON: 05/30/2024 and dating back to 11/28/2017. TECHNIQUE: Axial imaging of the head performed from the skull base to the vertex without IV contrast. Sagittal a nd coronal reformations obtained. DLP: 605 mGy-cm FINDINGS: The ventricles are enlarged. The dilatation of the ventricles is proportional to the degree of sulcal prominence, not uncommon in the senescent brain. Decreased attenuation is identified within the periventricular white matter, likely secondary to micr ovascular ischemic disease, in a patient of this age. Redemonstration of decreased attenuation within the distribution of the posterior branches of the rig ht middle cerebral artery, representing prior cerebral infarction, an interval change from 2018, but unchanged from 05/30/2024 There is no mass, mass effect or midline shift. There is no abnormal extra-axial fluid collection or intracranial hemorrhage. Visualized paranasal sinuses are clear. The mastoid air cells are well aerated. No acute displaced fractures within the overlying cranium. Impression: No acute intracranial hemorrhage or suspicious mass effect. Reviewed, dictated and finalized at location A. Y LEVEL ELECTRICIAN Impression: No acute intracranial hemorrhage or suspicious mass effect.
--- NOTE | ~2024-07-13 | XR_ITS ---
HISTORY: pain COMPARISON: None TECHNIQUE: 3 views of the left knee were performed. Lateral view is markedly limited by positioning FINDINGS: No acute or subacute fracture. Medial and lateral tibiofemoral joint space narrowing is identified. Calcification of the medial collateral ligament, made more prominent by poor positioning. No suprapatellar joint effusion is identified. The infrapatellar joint space is clear. IMPRESSION: Degenerative disease, without acute fracture. Reviewed, dictated and finalized at location A. AULIC BILLET MAKER
--- NOTE | ~2024-07-13 | XR_ITS ---
HISTORY: pain COMPARISON: None TECHNIQUE: 3 views of the right knee were performed. Examination is markedly limited by poor patient positioning. FINDINGS: No acute or subacute fracture. Trace medial and lateral tibiofemoral joint space narrowing is identified. No suprapatellar joint effusion is identified (although evaluation is limited secondary to poor posit ioning). The infrapatellar joint space is clear. IMPRESSION: Degenerative disease without acute fracture Reviewed, dictated and finalized at location A. STRIPPING MACHINE OPERATOR
--- NOTE | ~2024-07-13 | CT_ITS ---
History: Fall PROCEDURE: CT cervical spine and facial bones without intravenous contrast. COMPARISON: 03/17/2022 TECHNIQUE: Multiple contiguous axial images of the cervical spine were performed without the administration of i ntravenous contrast. DLP: mGy-cm FINDINGS: Preservation of the normal curvature of the cervical spine is identified with severe kyphosis. No acute fractures are present. Diffuse bony demineralization is present. Biapical scarring Soft tissue asymmetry within the bilateral periorbital regions (left greater than right). No acute facial bone fracture is appreciated. Diffuse bony demineralization is present. No lytic or blastic lesions identified. Impression: Severe degenerative disease, without acute fracture. Soft tissue asymmetry within the bilateral periorbital lesions, left greater than right. Reviewed, dictated and finalized at location A. ERN TACK ASSEMBLY LINE WORKER Impression: Severe degenerative disease, without acute fracture. Soft tissue asymmetry within the bilateral periorbital lesions, left greater th an right.
--- NOTE | ~2024-07-13 | XR_ITS ---
HISTORY: fall COMPARISON: None TECHNIQUE: Single frontal view of the pelvis and lower abdomen was performed FINDINGS: Diffuse bony demineralization is noted. Trace degenerative disease within the visualized portion of the lumbar spine. Superior lateral joint space narrowing and sclerosis is identified within the bilateral femoral aceta bular joint spaces. Joint space narrowing and sclerosis is present within the pubic symphysis. No acute fracture or dislocation is appreciated. Fecal stasis within the colon. IMPRESSION: Degenerative disease, without acute fracture or dislocation, as detailed above. Reviewed, dictated and finalized at location A. ATRIC NURSE PRACTITIONER
--- NOTE | ~2024-07-13 | XR_ITS ---
CHEST RADIOGRAPH CLINICAL HISTORY: fall . COMPARISON: 05/30/2024 TECHNIQUE: Single portable view of the chest. Examination is markedly limited by poor positioning (pa tient is rotated towards their left). FINDINGS The cardiomediastinal silhouette is enlarged, unchanged. Increased interstitial markings are identified bilaterally, findings suggesting mild pulmonary vascul ar congestion. The lungs are otherwise clear. Microclip's within the left axilla along with evidence of prior mastectomy. IMPRESSION: Limited examination without focal infiltrate or effusion. Reviewed, dictated and finalized at location A. CHBOARD OPERATOR
--- NOTE | 2024-07-13 14:35 | ED_ITS ---
HPI - Fall General Chief Complaint: Fall <Liliana Nelson PA-C - Last Filed: 07/15/24 09:11> Stated Complaint: fall <Liliana Nelson PA-C - Last Filed: 07/15/24 09:11> Time Seen by Provider: 07/13/24 14:35 <Liliana Nelson PA-C - Last Filed: 07/15/24 09:11> Focused HPI: This is an 89-year-old female that presents to the emergency department after a fall today with head injury. Patient is on anticoagulation. She is unsure what made her fall. Reports she just fell forward. Patient with history of dementia. Fall was witnessed at her facility this afternoon GENERAL: Elderly, well-nourished, and in no acute distress. HEAD: Normocephalic. Contusion to the left forehead CHEST: Clear to auscultation. ?No respiratory distress. HEART: Regular rate and rhythm.? NEURO: ?Alert and oriented x3. Patient screened in triage and initial orders placed.? ?Additional care and disposition to be based upon?diagnostic testing and treatment. <Liliana Nelson PA-C - Last Filed: 07/15/24 09:11> Related Data Home Medications: Home Medications ?Medication ?Instructions ?Recorded ?Confirmed ?Last Taken ?Type ascorbic acid (vitamin C) 500 mg 500 mg PO DAILY 08/14/19 06/16/24 04/09/20 History capsule,extended release magnesium 200 mg tablet 200 mg PO HS 08/14/19 06/16/24 04/09/20 History omeprazole 20 mg capsule,delayed 20 mg PO DAILY 05/30/24 06/16/24 Unknown Histor y release <Liliana Nelson PA-C - Last Filed: 07/15/24 09:11> Allergies/Adverse Reactions: Allergies Allergy/AdvReac Type Severity Reaction Status Date / Time memantine Allergy Unknown Unknown Verified 06/16/24 12:06 <FARTUN Bloom Last Filed: 07/15/24 09:11> Review of Systems Review of Systems: ROS unobtainable: Yes unobtainable due to medical condition (dementia) <FARTUN Bloom Last Filed: 07/15/24 09:11> PMFSH Past Medical History Medical History: Medical History (Updated 07/15/24 @ 09:11 by Liliana Nelson PA-C) Cancer of left breast Chronic kidney disease Atrial fibrillation Gastric ulcer Breast cancer Chronic diastolic congestive heart failure Iron deficiency anemia Current use of long-term anticoagulation Essential (primary) hypertension <Liliana Nelson PA-C - Last Filed: 07/15/24 09:11> Surgical History Surgical History: Surgical History (Updated 05/30/24 @ 19:56 by Libby Shepard PA-C) History of cataract extraction History of appendectomy History of tonsillectomy and adenoidectomy History of left mastectomy History of hysterectomy <Liliana Nelson PA-C - Last Filed: 07/15/24 09:11> Family History Family History: Family History Father Congestive heart failure Heart disease <Liliana Nelson PA-C - Last Filed: 07/15/24 09:11> Social History Social History: Social History (Updated 05/30/24 @ 22:41 by Libby Shepard PA-C) Social History: Surrogate medical decision maker: Camille Belle, daughter. Code status: Full code. Smoking status: Never smoker Second hand tobacco smoke exposure: No Alcohol intake: never Substance use: never Substance use type: does not use Do You Feel Safe in your Home?: Yes Lack of Transportation: No Lack of Food: Never True Current Housing: I Have Housing Concerned About Future Housing: No Difficulty Paying Gas/Electric Bills: No Difficulty Paying for Meds: No Currently Unemployed: No Education: High School Diploma/GED Difficulty w/ Childcare or Family Care: No Additional living arrangements comments: passed in January 2024. They have 1 daughter who lives locally. She lives at [facility]. Spiritual care concerns: No <Liliana Nelson PA-C - Last Filed: 07/15/24 09:11> Exam Narrative: GENERAL: Elderly, well-nourished, and in no acute distress. HEAD: Normocephalic. Contusion to the left forehead EYES: PERRLA and EOMI. ENT: Nares clear, no rhinorrhea or epistaxis. Mucous membranes moist. Oropharynx without tonsillar hypertrophy exudate or other lesions. Bilateral TMs pearly shaikh non-bulging NECK: Supple. No adenopathy or masses. CHEST: Clear to auscultation. No respiratory distress. No wheezes rales or rhonchi HEART: Regular rate and rhythm. No murmur heard. Normal peripheral pulses. EXTREMITIES: Normal range of motion. No edema or obvious deformity. SKIN: Warm, dry, no rash. NEURO: No focal deficits. Alert and oriented x2. CN II-XII grossly intact. Ambulatory with walker PSYCH: Normal mood and affect <Liliana Nelson PA-C - Last Filed: 07/15/24 09:11> Course Course Emergency Course: Patient and family updated on workup. Family member is concerned for her safety as she is in assisted living at this time. Will consult care coordination <Liliana Nelson PA-C - Last Filed: 07/15/24 09:11> SYNTHETIC DEPARTMENT SUPERVISOR/PA Physician Supervision For this patient encounter, I reviewed the SYNTHETIC DEPARTMENT SUPERVISOR or PA documentation, treatment plan, and medical decision making and had [id number] time with this patient. I performed all aspects of the MDM as documented. <Nathanael Kruger MD - Last Filed: 07/14/24 23:36> Consultations Consultation #1: Care coordination has spoke with Latasha Baldev if we are able to hold patient in the ER tonight they will be able to arrange for her to go to higher level of care at their facility in the morning <Liliana Nelson PA-C - Last Filed: 07/15/24 09:11> Date: 07/13/24 <FARTUN Bloom Last Filed: 07/15/24 09:11> Consultation #2: I did consult Dr. Morales for possible admission, recommends patient be held in the ER <Liliana Nelson PA-C - Last Filed: 07/15/24 09:11> Date: 07/14/24 <Liliana Nelson PA-C - Last Filed: 07/15/24 09:11> Vital Signs Vital signs: Vital Signs Temperature 97.6 F 07/13/24 12:53 Pulse Rate 61 07/13/24 12:53 Respiratory Rate 16 07/13/24 12:53 Blood Pressure 139/55 L 07/13/24 12:53 Pulse Oximetry 98 07/13/24 12:53 Oxygen Delivery Room Air 07/13/24 12:53 Temperature 97.6 F 07/13/24 12:53 Pulse Rate 55 L 07/14/24 07:21 Respiratory Rate 18 07/14/24 07:21 Blood Pressure 115/57 L 07/14/24 07:21 Pulse Oximetry 95 07/14/24 07:21 Oxygen Delivery Room Air 07/13/24 12:53 <iLliana Nelson PA-C - Last Filed: 07/15/24 09:11> Vital Signs Temperature 97.6 F 07/13/24 12:53 Pulse Rate 61 07/13/24 12:53 Respiratory Rate 16 07/13/24 12:53 Blood Pressure 139/55 L 07/13/24 12:53 Pulse Oximetry 98 07/13/24 12:53 Oxygen Delivery Room Air 07/13/24 12:53 Temperature 97.6 F 07/13/24 12:53 Pulse Rate 55 L 07/14/24 07:21 Respiratory Rate 18 07/14/24 07:21 Blood Pressure 115/57 L 07/14/24 07:21 Pulse Oximetry 95 07/14/24 07:21 Oxygen Delivery Room Air 07/13/24 12:53 <Nathanael Kruger MD - Last Filed: 07/14/24 23:36> Vital Signs Temperature 97.6 F 07/13/24 12:53 Pulse Rate 61 07/13/24 12:53 Respiratory Rate 16 07/13/24 12:53 Blood Pressure 139/55 L 07/13/24 12:53 Pulse Oximetry 98 07/13/24 12:53 Oxygen Delivery Room Air 07/13/24 12:53 Temperature 97.6 F 07/13/24 12:53 Pulse Rate 55 L 07/14/24 07:21 Respiratory Rate 18 07/14/24 07:21 Blood Pressure 115/57 L 07/14/24 07:21 Pulse Oximetry 95 07/14/24 07:21 Oxygen Delivery Room Air 07/13/24 12:53 <Mahnaz Vo MD - Last Filed: 07/14/24 09:21> MDM - Fall MDM Narrative Medical decision making narrative: Patient presents to the emergency department after a fall today with head injury at her assisted living facility. Patient is neurologically intact at her baseline. CT brain without acute findings. CT cervical spine and facial bones without acute fracture. Patient endorsing some bilateral knee pain. Knee x-ray showed degenerative changes without acute fractures. Chest and pelvic x-rays without acute findings. Patient was ambulatory in the ED with her walker, but did need 2 people to assist her. Patient and family updated on workup. Family member is concerned for her safety as she is in assisted living at this time. W ill consult care coordination. Care coordination has spoke with Latasha De Paz if we are able to hold patient in the ER tonight they will be able to arrange for her to go to higher level of care at their facility in the morning <Liliana Nelson PA-C - Last Filed: 07/15/24 09:11> Patient presents to the emergency department after a fall today with head injury at her assisted living facility. Patient is neurologically intact at her baseline. CT brain without acute findings. CT cervical spine and facial bones without acute fracture. Patient endorsing some bilateral knee pain. Knee x-ray showed degenerative changes without acute fractures. Chest and pelvic x-rays without acute findings. Patient was ambulatory in the ED with her walker, but did need 2 people to assist her. Patient and family updated on workup. Family member is concerned for her safety as she is in assisted living at this time. Will consult care coordination. Care coordination has spoke with Latasha De Paz if we are able to hold patient in the ER tonight they will be able to arrange for her to go to higher level of care at their facility in the morning. Patient was signed out to me pending plant care worker evaluation. Patient was waiting for correctional case manager evaluation, after evaluation patient was accepted to be transferred to alf instead of assisting living. <Nathanael Kruger MD - Last Filed: 07/14/24 23:36> Patient presents to the emergency department after a fall today with head injury at her assisted living facility. Patient is neurologically intact at her baseline. CT brain without acute findings. CT cervical spine and facial bones without acute fracture. Patient endorsing some bilateral knee pain. Knee x-ray showed degenerative changes without acute fractures. Chest and pelvic x-rays without acute findings. Patient was ambulatory in the ED with her walker, but did need 2 people to assist her. Patient and family updated on workup. Family member is concerned for her safety as she is in assisted living at this time. Will consult care coordination. Care coordination has spoke with Latasha Baldev if we are able to hold patient in the ER tonight they will be able to arrange for her to go to higher level of care at their facility in the morning Patient was waiting for correctional case manager evaluation, after evaluation patient was accepted to be transferred to alf instead of assisting living. <Mahnaz Vo MD - Last Filed: 07/14/24 09:21> Differential Diagnosis Differential diagnosis: Likely compression fracture, concussion without loss of consciousness and other (Facial bone fracture) <Liliana Nelson PA-C - Last Filed: 07/15/24 09:11> Imaging Data Radiologist's impression: ITS Impressions Head CT 07/13/24 15:05 Impression: No acute intracranial hemorrhage or suspicious mass effect. Head/Cervical Spine/Facial Bones CT 07/13/24 15:09 Impression: Severe degenerative disease, without acute fracture. Soft tissue asymmetry within the bilateral periorbital lesions, left greater than right. Knee X-Ray 07/13/24 16:27 IMPRESSION: Degenerative disease, without acute fracture. Pelvis X-Ray 07/13/24 16:30 IMPRESSION: Degenerative disease, without acute fracture or dislocation, as detailed above. Chest X-Ray 07/13/24 16:32 IMPRESSION: Limited examination without focal infiltrate or effusion. Knee X-Ray 07/13/24 16:34 IMPRESSION: Degenerative disease without acute fracture <Liliana Nelson PA-C - Last Filed: 07/15/24 09:11> Critical Care Time Critical Care Time Critical Care Time: No <Liliana Nelson PA-C - Last Filed: 07/15/24 09:11> Discharge Plan Discharge Clinical Impression: Fall Qualifiers: Encounter type: initial encounter Qualified Code(s): W19.XXXA - Unspecified fall, initial encounter Head injury Qualifiers: Encounter type: initial encounter Qualified Code(s): S09.90XA - Unspecified injury of head, initial encounter <FARTUN Bloom Last Filed: 07/15/24 09:11> Patient Disposition: [facility] Skilled Nursing/Asst Living <Liliana Nelson PA-C - Last Filed: 07/15/24 09:11> Condition: Stable <FARTUN Bloom Last Filed: 07/15/24 09:11> Instructions: Head Injury (ED) <FARTUN Bloom Last Filed: 07/15/24 09:11> Additional Instructions: Return to the emergency department if you experience fever, chest pain, shortness of breath, abdominal pain with nausea and vomiting, weakness, numbness, or any other symptoms that are concerning to you. Rest. Ice to the area. Syxb-flm-[id number] pain medication as needed Follow up with primary care doctor <FARTUN Bloom Last Filed: 07/15/24 09:11> Patient Language: Burundian <FARTUN Bloom Last Filed: 07/15/24 09:11> Prescriptions: No Action ascorbic acid (vitamin C) 500 mg capsule, extended release 500 mg PO DAILY magnesium 200 mg tablet 200 mg PO HS omeprazole 20 mg capsule,delayed release(DR/EC) 20 mg PO DAILY Rx Instructions: TAKE 1 CAPSULE DAILY polyethylene glycol 3350 [Miralax] 17 gram Powder In Packet 17 g PO QAM Qty: 14 0RF azithromycin [Zithromax] 250 mg Tablet 250 mg PO DAILY@1700 Qty: 2 0RF amoxicillin-pot clavulanate [Augmentin] 500-125 mg tablet 1 tablet PO Q12H Qty: 10 0RF furosemide 20 mg tablet 20 mg PO DAILY Qty: 90 2RF metoprolol succinate [Toprol XL] 50 mg tablet extended release 24 hr 50 mg PO DAILY Qty: 90 0RF Xarelto 20 mg tablet 20 mg PO QPM Qty: 90 0RF Rx Instructions: must administer with evening meal donepezil 5 mg tablet 5 mg PO QHS Qty: 90 0RF ferrous sulfate 324 mg (65 mg iron) tablet,delayed release (DR/EC) 324 mg PO DAILY Qty: 90 2RF Rx Instructions: TAKE 1 TABLET BY MOUTH EVERY DAY potassium chloride 20 mEq packet 20 meq PO DAILY Qty: 100 3RF <Liliana Nelson PA-C - Last Filed: 07/15/24 09:11> Follow-up/Referrals: Paco Collins MD [Primary Care Provider] - <Liliana Nelson PA-C - Last Filed: 07/15/24 09:11>
--- NOTE | 2024-07-13 17:18 | PC.NURSE ---
Per EDP, c-collar removed
--- NOTE | 2024-07-13 18:22 | PCCCNOTE ---
Called to the ED to help with placement for pt. Pt lives at [facility] at this time. Pt had a fall today and is requiring more assistance than normal. She can not return to live independently tonight because they don't have enough staff to help her.. I spoke with Ariana at [facility] who said they can take the pt back at 0800 in the morning, because they will have the staff to help her at that time. Ariana can be reached at [phone]
[2024-07-14 05:53] VITALS: BP 127/56; PULSE 59; RESP 14; O2SAT 100
--- NOTE | 2024-07-14 06:55 | PC.NURSE ---
@[phone] daughter was called and updated on pts plan of care. Pt to consult with care coordination in attempts to get pt placed on skilled nursing side of [facility].
[2024-07-14 07:21] VITALS: BP 115/57; PULSE 55; RESP 18; O2SAT 95
--- NOTE | 2024-07-14 08:51 | PC.NURSE ---
Pt A&Ox4 however she is confused on some things. for example, Pt will ask for water and this RN just handed her water and she is holding it in her hand. Pt also repeats questions that were just answered
--- NOTE | 2024-07-14 08:53 | PC.NURSE ---
Frandy from Care coordination here to work on placement for pt
== END 2024-07-14 10:02 ==
PROVIDERS: Emergency Provider Emergency Medicine; PCP Family Medicine
DX: S00.83XA Contusion of other part of head, initial encounter (principal); F03.90 Unspecified dementia, unspecified severity, without behavioral disturbance, psychotic disturbance, mood disturbance, and anxiety; I13.0 Hypertensive heart and chronic kidney disease with heart failure and stage 1 through stage 4 chronic kidney disease, or unspecified chronic kidney disease; N18.9 Chronic kidney disease, unspecified; I50.32 Chronic diastolic (congestive) heart failure; I48.91 Unspecified atrial fibrillation; D50.9 Iron deficiency anemia, unspecified; Z85.3 Personal history of malignant neoplasm of breast; Z98.49 Cataract extraction status, unspecified eye; Z90.12 Acquired absence of left breast and nipple; Z90.710 Acquired absence of both cervix and uterus; Z79.01 Long term (current) use of anticoagulants; M17.0 Bilateral primary osteoarthritis of knee; M47.812 Spondylosis without myelopathy or radiculopathy, cervical region; W18.30XA Fall on same level, unspecified, initial encounter
CPT/HCPCS: 70450; 70486; 71045; 72125; 72170; 73562; 99284

== ENCOUNTER 2024-07-24 01:31 | Inpatient (IN) | payer MEDICARE, OTHER, SELFPAY ==
[2024-07-24] VITALS (26 sets, daily range): BP systolic 93–138; BP diastolic 47–95; PULSE 43–74; RESP 13–22; TEMP 31.2–36.7; O2SAT 93–100; BMI 28.4
--- NOTE | 2024-07-24 | ECHO_ITS ---
Patient Info Name: Annamarie Belle Age: 89 years : 1935 Gender: Female Ht: 64 in Wt: 165 lbs BSA: 1.86 m2 HR: 59 bpm BP: 125 / 95 mmHg Technical Quality: Good Exam Date: 07/24/2024 9:41 AM Exam Location: Echo Lab Exam Room: [facility] Patient Status: Inpatient Admit Date: 07/24/2024 Staff Ordering Physician: Eric Holm APRN [employer] Person: Lucia Castillo RDCS Attending Provider: Chester Chavarria MD Referring Physician: Mihai RAMIREZ; Exam Type: CA echo doppler color flow Study Info Indications - Pulmonary edema Complete two-dimensional, color flow and Doppler transthoracic echocardiogram is performed. Summary 1. Left ventricular chamber dimension is normal. 2. Left ventricular systolic function is normal, estimated at 55-60%. 3. There is mildly increased left ventricular wall thickness. 4. Right ventricular chamber dimension is moderately enlarged. 5. Right ventricular systolic function is normal. 6. Left atrial chamber dimension is severely enlarged. 7. Right atrial chamber dimension is severely enlarged. 8. There is mild aortic valve regurgitation. 9. There is mild mitral valve regurgitation. 10. There is moderate tricuspid valve regurgitation. 11. Pulmonary hypertension, estimated pulmonary arterial systolic pressure is 72 mmHg. 12. There is mild pulmonic regurgitation. Left Ventricle Left ventricular chamber dimension is normal. Left ventricular systolic function is normal, estimated at 55-60%. There is mildly increased left ventricular wall thickness. The left ventricular diastolic function is abnormal. Right Ventricle Right ventricular chamber dimension is moderately enlarged. Right ventricular systolic function is normal. Left Atria Left atrial chamber dimension is severely enlarged. Right Atria Right atrial chamber dimension is severely enlarged. Atrial Septum Intact interatrial septum visualized by color flow imaging. Aortic Valve The aortic valve is trileaflet. There is no aortic valve stenosis. There is mild aortic valve regurgitation. Pulmonic Valve The pulmonic valve is not well visualized. There is mild pulmonic regurgitation. Mitral Valve There is mild mitral valve regurgitation. The mitral valve annulus is mildly calcified. Tricuspid Valve There is moderate tricuspid valve regurgitation. Pulmonary hypertension, estimated pulmonary arterial systolic pressure is 72 mmHg. Pericardium/Pleural There is no pericardial effusion. Inferior Vena Cava Dilated inferior vena cava with >50% collapse upon inspiration consistent with elevated right atrial pressure, 15 mmHg. Aorta The aortic root size at the sinus of Valsalva is normal. Left Ventricular Outflow Tract Name Value Normal LVOT 2D LVOT Diameter 2.5 cm LVOT Doppler LVOT Peak Gradient 1 mmHg LVOT Mean Gradient 1 mmHg LVOT VTI 18 cm LVOT VTI/AV VTI Ratio 0.8 LVOT Stroke Volume 91 ml LVOT CO 7.8 l/min LVOT CI 4.2 l/min/m2 Pulmonic Valve Name Value Normal PV Doppler PV Peak Gradient 2 mmHg PV Regurgitation Doppler UT Peak End Diastolic Velocity 95 cm/s Mitral Valve Name Value Normal MV Doppler MV Peak Gradient 7 mmHg MV Mean Gradient 2 mmHg MV Decel [place] 497 cm/s2 MV PHT 69 ms MV Area (PHT) 3.2 cm2 4.0-5.0 MV Area (Cont Eq VTI) 2.7 cm2 MV Regurgitation Doppler MR Peak Gradient 69 mmHg MV Diastolic Function MV E Peak Velocity 119 cm/s MV A Peak Velocity 50 cm/s MV E/A 2.4 MV Decel Time 239 ms MV Annular TDI MV E/e' (Septal) 23.9 <=8.0 MV E/e' (Lateral) 20.0 <=8.0 MV E/e' (Average) 21.9 Tricuspid Valve Name Value Normal TV Regurgitation Doppler TR Peak Velocity 379 cm/s TR Peak Gradient 47 mmHg Estimated PAP/RSVP RA Pressure 15 mmHg <=5 PA Systolic Pressure 72 mmHg <36 RV Systolic Pressure 72 mmHg <36 Aortic Valve Name Value Normal AV Doppler AV Peak Velocity 85 cm/s AV Peak Gradient 3 mmHg AV Mean Gradient 2 mmHg AV VTI 22 cm AV Area (Cont Eq VTI) 4.1 cm2 >=3.0 AV Area (Cont Eq Rivas) 3.9 cm2 AV Regurgitation 2D LVOT Area 4.9 cm2 AV Regurgitation Doppler AR Decel Time 2,209 ms AR Decel [place] 128 cm/s2 AR PHT 640 ms Ventricles Name Value Normal LV Dimensions 2D/MM IVS Diastolic Thickness (2D) 0.8 cm 0.6-1.0 IVS Diastole Thickness (MM) 0.8 cm 0.6-0.9 LVID Diastole (2D) 4.5 cm 3.8-5.2 LVID Diastole (MM) 4.8 cm 3.8-5.2 LVIW Diastolic Thickness (2D) 0.8 cm 0.6-0.9 LVIW Diastolic Thickness (MM) 0.8 cm 0.6-0.9 IVS Systolic Thickness (MM) 0.9 cm LVID Systole (2D) 3.3 cm 2.2-3.5 LVID Systole (MM) 3.1 cm 2.2-3.5 LVIW Systolic Thickness (MM) 0.9 cm LVOT Diameter 2.5 cm LV Mass (2D Cubed) 113.12 g 67.00-162.00 LV Mass Index (2D Cubed) 61 g/m2 43-95 Relative Wall Thickness (2D) 0.38 LV Mass (MM Cubed) 121.91 g 67.00-162.00 LV Mass Index (MM Cubed) 66 g/m2 43-95 Relative Wall Thickness (MM) 0.33 LV Fractional Shortening/Ejection Fraction 2D/MM LV Fractional Shortening (2D) 26 % 27-45 LV Fractional Shortening (MM) 36 % 27-45 LV EF (MM Teicholz) 65 % 54-74 LV EF (2D Teicholz) 51 % 54-74 LV Diastolic Volume (4C MOD) 108 ml LV EF (4C MOD) 51 % LV Diastolic Volume (2C MOD) 132 ml LV EF (2C MOD) 57 % LV Diastolic Volume (BP MOD) 124 ml 46-106 LV Diastolic Volume Index (BP MOD) 67 ml/m2 29-61 LV Systolic Volume (BP MOD) 57 ml 14-42 LV Systolic Volume Index (BP MOD) 31 ml/m2 8-24 LV EF (BP MOD) 54 % 54-74 LV Diastolic Length (4C) 7.2 cm LV Systolic Length (4C) 6.0 cm LV Stroke Volume (4C MOD) 55 ml Atria Name Value Normal LA Dimensions LA Volume (4C A-L) 115 ml RA Dimensions RA Area (4C) 29.3 cm2 <=18.0 Report Signatures
--- NOTE | ~2024-07-24 | XR_ITS ---
EXAMINATION: XR abdomen gastric tube insert DATE: 07/25/2024 10:36 INDICATION: Nasogastric tube placement. TECHNIQUE: An upright view of the abdomen was obtained on 2 radiographs. COMPARISON: Chest single view 07/24/2024, CT 07/24/2024 FINDINGS: The lower abdomen is excluded. There are no dilated loops of bowel. The nasogastric tube ti p is in the midesophagus. There are airspace opacities in the mid and lower lung zones. There are sma ll pleural effusions. Cardiomegaly is noted. There are surgical clips in left chest wall. IMPRESSION: 1. Nasogastric tube in abnormal position with tip in the midesophagus. 2. Airspace opacities in the mid and lower lung zones, consistent with pneumonia. 3. Small pleural effusions. Reviewed, dictated and finalized at location B. TTER HAND IMPRESSION: 1. Nasogastric tube in abnormal position with tip in the midesophagus. 2. Airspace opacities in the mid and lower lung zones, consistent with pneumoni a. 3. Small pleural effusions.
--- NOTE | ~2024-07-24 | CT_ITS ---
EXAMINATION: CTA chest PE abdomen pel DATE: 07/24/2024 14:30 INDICATION: Pneumonia. Abdominal tenderness. TECHNIQUE: Computed tomography angiography (CTA) of the chest was performed with 100 mL Omnipaque-350 intravenous contrast timed to evaluate the pulmonary arteries. Coronal maximum intensity projection 3D-reconstructions were created by the technologist. Computed tomography (CT) of the abdomen and pelv is was performed with intravenous contrast. Automated exposure control and iterative reconstruction t echnique were employed. The dose-length product was 1485.44 mGy-cm. COMPARISON: CT 05/30/2024 FINDINGS: CTA chest: There are airspace opacities in right upper lobe and right middle lobe, consistent with pn eumonia. There is atelectasis bilaterally. There are small pleural effusions. Cardiomegaly is noted. There are coronary artery calcifications. No pericardial effusion. There is no pulmonary embolus. The re is kyphosis of thoracic spine. There is mild chronic anterior wedging of multiple mid thoracic sachin tebral bodies. There is moderate thoracic spondylosis. CT abdomen and pelvis: The liver and spleen are normal. The gallbladder is normal in size. Gallbladde r wall thickening is likely secondary to interstitial edema. There is fat stranding in the gallbladde r fossa, consistent with edema. The pancreas and adrenal glands are normal. There is cortical thinnin g of the kidneys. There is a 2.2 cm cyst in right kidney. There is a Arriaga catheter in expected posit ion. There are no dilated loops of bowel. The appendix is not visualized. There are no pathologically enlarged lymph nodes. There is no free intraperitoneal fluid. There is mild lumbar spondylosis. IMPRESSION: 1. No pulmonary embolus. Sensitivity is moderately decreased by motion artifact. 2. Pneumonia in right upper lobe and right middle lobe. 3. Small pleural effusions. Reviewed, dictated and finalized at location B. CTOR OPERATIONS IMPRESSION: 1. No pulmonary embolus. Sensitivity is moderately decreased by motion artifact . 2. Pneumonia in right upper lobe and right middle lobe. 3. Small pleural effusions.
--- NOTE | ~2024-07-24 | XR_ITS ---
EXAMINATION: XR abdomen gastric tube insert DATE: 07/25/2024 11:08 INDICATION: Nasogastric tube placement. TECHNIQUE: An upright view of the abdomen was obtained. COMPARISON: Abdomen radiograph at 10:30 AM FINDINGS: The lower abdomen is excluded. There are no dilated loops of bowel. The nasogastric tube ti p is in the stomach. There are airspace opacities in the mid and lower lung zones. There are small pl eural effusions. Cardiomegaly is noted. There are surgical clips in left abdomen. IMPRESSION: 1. Nasogastric tube tip in the stomach. 2. Bilateral lung disease, consistent with pneumonia. 3. Small pleural effusions. 4. Cardiomegaly. Reviewed, dictated and finalized at location B. DOFFER
--- NOTE | ~2024-07-24 | XR_ITS ---
Portable chest x-ray Comparison: 07/24/2024 Clinical History: Respiratory failure Findings: NG tube in place. Small bilateral pleural effusions are present. There is extensive bibasi lar and perihilar airspace consolidation. Cardiomediastinal silhouette is stable. Bones and soft tis sues are unremarkable. Impression: Moderate bibasilar and perihilar pulmonary edema pattern, mildly worsened from prior exam, with small pleural effusions. NG tube in place. Reviewed, dictated and finalized at location M. CTOR OF PROPERTY MANAGEMENT Impression: Moderate bibasilar and perihilar pulmonary edema pattern, mildly worsened from prior exam, with small pleural effusions. NG tube in place.
--- NOTE | ~2024-07-24 | CT_ITS ---
CT head without contrast Indication: Altered mental status COMPARISON: 07/13/2024 Technique: Serial scans were obtained through the brain without the administration of contrast. Dose reduction technique was used on this scan by utilizing automated exposure control and iterative recon struction technique. The dose-length product (DLP) was 681.00 mGy-cm. Findings: There is no evidence of intracranial hemorrhage, mass lesion, or acute infarct. Chronic inf arct noted in the posterior right temporal lobe to right parietal lobe. The ventricles and subarachno id spaces are dilated, consistent with mild to moderate atrophy. Low attenuation regions are seen wi thin the periventricular white matter bilaterally, likely representing changes from chronic microvasc ular ischemic disease. There is no evidence of edema, mass effect or midline shift. The visualized paranasal sinuses and mastoid air cells are clear. Impression: No intracranial hemorrhage, mass, or acute infarct. 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 Atrophy and chronic white matter changes, as above. Reviewed, dictated and finalized at location . GER BOOKS Impression: No intracranial hemorrhage, mass, or acute infarct. 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 Atrophy and chronic white matter changes, as above.
--- NOTE | ~2024-07-24 | XR_ITS ---
Portable chest x-ray Comparison: 07/13/2024 Clinical History: Infection Findings: There is bibasilar and left perihilar airspace disease. Possible minimal right pleural eff usion. Cardiomediastinal silhouette is stable. Bones and soft tissues are unremarkable. Impression: Bibasilar left perihilar pulmonary edema versus bilateral pneumonia. Correlate clinically. Minimal left pleural effusion. Stable cardiomegaly. Reviewed, dictated and finalized at [facility]. MATED CUTTING MACHINE OPERATOR Impression: Bibasilar left perihilar pulmonary edema versus bilateral pneumonia. Correlate clinically. Minimal left pleural effusion. Stable cardiomegaly.
--- NOTE | 2024-07-24 01:42 | ECG_ITS ---
Test Date: 2024-07-24 01:42:20 Measurements Intervals [place] Rate: 54 P: 0 [place]: 0 QRS: -7 QRSD: 121 T: 61 QT: 513 QTc: 490 Interpretive Statements ATRIAL FIBRILLATION WITH SLOW VENTRICULAR RESPONSE LATERAL MYOCARDIAL INFARCTION , OF INDETERMINATE AGE [40+ ms Q WAVE AND/OR ST/T ABNORMALITY IN I/aVL/V5/V6] Compared to ECG 05/30/2024 15:31:33 Myocardial infarct finding now present Incomplete right bundle-branch block no longer present Left ventricular hypertrophy no longer present Electronically Signed On 07-24-2024 13:59:48 SUPPORT ARCHITECT by Yee Ambrocio
--- NOTE | 2024-07-24 02:25 | ED.AMS ---
HPI - Altered Mental Status General Chief Complaint: Altered Mental Status Stated Complaint: bradycardia, altered Time Seen by Provider: 07/24/24 01:56 History of Present Illness HPI narrative: Patient is an 89-year-old female who presents to the emergency department this evening via EMS due to concern for altered mental status. Per EMS report and paperwork present with the patient from her long-term, patient is DNR. group home states that the patient is normally alert and oriented to person, place and situation but today was only A&O times 0 to them. group home states that the patient has been declining gradually throughout the day and finally decided to bring her into the emergency department for further evaluation. Patient will respond to name, able to localize pain, follows some commands. No additional symptoms or concerns at this time. Patient was recently seen our facility on July 13 for a fall. Related Data Home Medications ?Medication ?Instructions ?Recorded ?Confirmed ?Last Taken ?Type ascorbic acid (vitamin C) 500 mg 500 mg PO DAILY 08/14/19 06/16/24 04/09/20 History capsule,extended release magnesium 200 mg tablet 200 mg PO HS 08/14/19 06/16/24 04/09/20 History omeprazole 20 mg capsule,delayed 20 mg PO DAILY 05/30/24 06/16/24 Unknown History release Allergies Allergy/AdvReac Type Severity Reaction Status Date / Time memantine Allergy Unknown Unknown Verified 06/16/24 12:06 Review of Systems Review of Systems: Unable to obtain a full review of systems secondary to patient's current altered mental status. [facility] Past Medical History Medical History Cancer of left breast Chronic kidney disease Atrial fibrillation Gastric ulcer Breast cancer Chronic diastolic congestive heart failure Iron deficiency anemia Current use of ferry terminal supervisor anticoagulation Essential (primary) hypertension Surgical History Surgical History History of cataract extraction History of appendectomy History of tonsillectomy and adenoidectomy History of left mastectomy History of hysterectomy Family History Family History Father Congestive heart failure Heart disease Social History Social History Social History: Surrogate medical decision maker: Camille Belle, daughter. Code status: Full code. Smoking status: Never smoker Second hand tobacco smoke exposure: No Alcohol intake: never Substance use: never Substance use type: does not use Do You Feel Safe in your Home?: Yes Lack of Transportation: No Lack of Food: Never True Current Housing: I Have Housing Concerned About Future Housing: No Difficulty Paying Gas/Electric Bills: No Difficulty Paying for Meds: No Currently Unemployed: No Education: High School Diploma/GED Difficulty w/ Childcare or Family Care: No Additional living arrangements comments: passed in January 2024. They have 1 daughter who lives locally. She lives at [facility]. Spiritual care concerns: No Exam Narrative: General: Awake, hypothermic, in no acute distress. HEENT: PERRL, no rhinorrhea, no post nasal drip, oropharynx clear. Neck: Trachea midline, no JVD, no lymphadenopathy. Cardiovascular: Bradycardic with an irregular rhythm, no murmurs, rubs or gallops, no peripheral edema. Respiratory: Clear to auscultation bilaterally, no tachypnea, no wheezing, no rhonchi, no rubs, no respiratory distress. Abdomen: Soft, nontender, nondistended, no rebound, no guarding, no peritoneal signs. Musculoskeletal: No joint swelling or deformity, normal muscle tone, old ecchymosis/bruising noted along the patient's right lower extremity likely secondary to known history of recent fall on 07/13. Skin: No rashes or petechia, no signs of infection. Psychiatric: Alert and oriented, normal behavior and judgment for situation. Neurological: Alert and oriented to person. Follows some commands. Moving all 4 extremities spontaneously, no focal deficits appreciated at this time within the limitation of the neurological examination secondary to patient's altered mental status. Course Vital Signs Vital signs: Vital Signs Pulse Rate 57 L 07/24/24 01:31 Respiratory Rate 15 07/24/24 01:31 Blood Pressure 119/51 L 07/24/24 01:31 Pulse Oximetry 95 07/24/24 01:31 Oxygen Delivery Room Air 07/24/24 01:31 Temperature 91 F L 07/24/24 03:58 Pulse Rate 59 L 07/24/24 03:58 Respiratory Rate 18 07/24/24 03:58 Blood Pressure 117/78 07/24/24 03:58 Pulse Oximetry 94 07/24/24 03:58 Oxygen Delivery Room Air 07/24/24 02:30 MDM - Altered Mental Status MDM Narrative Medical decision making narrative: The patient was evaluated by myself in the emergency department. History is obtained from patient who is an independent historian and physical exam was performed. External medical records were reviewed at this time. IV was established and pertinent tests were ordered. Upon arrival, patient was noted to be bradycardic with heart rate of 45 which is not unusual for the patient per chart review given that she is on metoprolol and donepezil which both cause bradycardia, however, patient was also noted to be hypothermic with a temperature of 88.2 rectally which could be contributing to her bradycardia. Patient was administered 2 L of warmed IV fluids with normal saline at this time. Patient was also placed on a Bear Hugger for rewarming secondary to hypothermia. EKG was obtained which revealed atrial fibrillation with slow ventricular response at a rate of 54 beats per minute, no evidence of acute ischemia within limitation of baseline artifact. EKG was independently interpreted by me and is currently pending official cardiology read. Laboratory results obtained revealing white blood cell count of 3.70, otherwise unremarkable. Urinalysis unremarkable. Urine drug screen negative. Viral swabs negative for COVID/influenza/RSV. Imaging studies obtained included CXR which was independently interpreted by me revealing bilateral multifocal pneumonia, which is pending final radiology interpretation. CT brain without IV contrast was also obtained at this time and bloody interpreted by me revealing no acute intracranial process. Patient was on vancomycin/Zosyn to cover her for sepsis secondary to her multifocal pneumonia. She was also started on maintenance fluids with normal saline at a rate of 100 cc/hour. Differential diagnosis considerations include sepsis secondary to infectious process such as pneumonia/UTI, dehydration, electrolyte derangements. Comorbidities impacting this visit include none. I have evaluated and discussed social determinants of health with the patient that could potentially impact subsequent diagnosis and treatment plans. On repeat assessment of the patient, reevaluation revealed that the patient is doing well and is in no acute distress. Patient symptoms have improved since she arrived to our emergency department. Repeat vital signs were all reviewed and noted to be stable. Differential diagnosis and treatment plan were discussed with the patient at bedside. Case was discussed with the on-call nurse practitioner Law @ 0420 and he accepted admission. Lab Data 07/24/24 02:05 07/24/24 02:05 Labs: Lab Results 07/24/24 07/24/24 Range/Units 02:05 02:11 WBC 3.7 L (4.5-10.0) K/mm3 RBC 4.39 (4.2-5.4) M/mm3 Hgb 13.6 (12.0-15.0) g/dL Hct 42.5 (37.0-47.0) % MCV 96.8 (80-100) fl MCH 31.0 (26-34) pg MCHC 32.0 (32-36) g/dl RDW 17.1 H (11.5-14.5) % Plt Count 97 L (150-375) k/mm3 MPV 10.9 H (7.4-10.4) fl Immature Gran % (Auto) 0.5 (0-0.5) % Neut % (Auto) 79.8 H (45.5-73.1) % Lymph % (Auto) 10.5 L (18.3-44.2) % [place] % (Auto) 7.0 (2.6-8.5) % Eos % (Auto) 1.9 (0-4.4) % Baso % (Auto) 0.3 (0.2-1.2) % Lymph # (Auto) 0.39 L (0.9-3.2) K/mm3 [place] # (Auto) 0.3 (0.1-0.6) K/mm3 Eos # (Auto) 0.1 (0-0.3) K/mm3 Baso # (Auto) 0.0 (0.0-0.1) K/mm3 Abs Immat Gran (auto) 0.02 (0.00-0.031) K/mm3 Absolute Neuts (auto) 3.0 (1.3-6.7) K/mm3 Absolute Nucleated RBC 0.020 H (0.0-0.012) K/mm3 Nucleated RBC % 0.5 H (0.0-0.2) % Platelet Estimate Decreased (Adequate) Large Platelets Present % Immature Plt Fraction 8.6 (0.9-11.2) % Poikilocytosis 1+ Anisocytosis 1+ Tear Drop Cells 1+ [place] Cells 1+ Schistocytes None seen PT 26.8 H (11.1-14.7) Seconds INR 2.4 APTT 56.9 H (22.3-36.8) Seconds Sodium 145 (137-145) mmol/L Potassium 3.8 (3.4-5.0) mmol/L Chloride 112 H (98-107) mmol/L Carbon Dioxide 26 (22-30) mmol/L Anion Gap 7 (4-12) mmol/L BUN 42 H D (7-17) mg/dL Creatinine 0.86 (0.7-1.0) mg/dL Estim Creat Clear Calc 40 ml/min Estimated GFR > 60 (59 - ) Glucose 97 (65-110) mg/dL Lactic Acid 1.7 (0.7-2.0) mmol/L Calcium 9.2 (8.4-10.2) mg/dL Magnesium 2.5 H (1.6-2.3) mg/dL Total Bilirubin 1.9 H (0.2-1.3) mg/dL AST 28 (14-36) U/L ALT 28 (6-35) U/L Alkaline Phosphatase 86 (38-126) U/L Ammonia < 9 L (9-30) umol/L Total Creatine Kinase < 20 L (30-135) U/L Total Protein 6.0 L (6.3-8.2) g/dL Albumin 3.2 L (3.5-5.1) g/dL TSH (Reflex) 4.350 (0.465-4.68) uIU/mL Free T4 Pending Urine Color Yellow (Yellow) Urine Appearance Clear (Clear) Urine pH 5.0 (5.0-9.0) Ur Specific [place] 1.019 (1.001-1.035) Urine Protein Negative (Negative) mg/dL Urine Glucose (UA) Negative (Negative) mg/dL Urine Ketones Negative (Negative) mg/dL Ur Blood (Man) Negative (Negative) Urine Nitrate Negative (Negative) Urine Bilirubin Negative (Negative) Urine Urobilinogen 1.0 (<2.0) mg/dL Leukocyte Esterase Rfl Negative (Negative) FAVIAN/UL Urine Opiates Screen Negative (Negative) Urine Methadone Screen Negative (Negative) Ur Barbiturates Screen Negative (Negative) Ur Phencyclidine Scrn Negative (Negative) Ur Amphetamine Screen Negative (Negative) U Benzodiazepines Scrn Negative (Negative) Urine Cocaine Screen Negative (Negative) U Cannabinoids Screen Negative (Negative) Influenza A (RT-PCR) Negative (Negative) Influenza B (RT-PCR) Negative (Negative) RSV (RT-PCR) Negative (Negative) SARS-CoV-2 RNA (RT-PCR) Negative (Negative) Discharge Plan Discharge Clinical Impression: Sepsis, Altered mental status, Hypothermia, Multifocal pneumonia Patient Disposition: Still a Patient Condition: Improved Patient Language: Citizen Of [place] Prescriptions: No Action ascorbic acid (vitamin C) 500 mg capsule, extended release 500 mg PO DAILY magnesium 200 mg tablet 200 mg PO HS omeprazole 20 mg capsule,delayed release(DR/EC) 20 mg PO DAILY Rx Instructions: TAKE 1 CAPSULE DAILY polyethylene glycol 3350 [Miralax] 17 gram Powder In Packet 17 g PO QAM Qty: 14 0RF azithromycin [Zithromax] 250 mg Tablet 250 mg PO DAILY@1700 Qty: 2 0RF amoxicillin-pot clavulanate [Augmentin] 500-125 mg tablet 1 tablet PO Q12H Qty: 10 0RF furosemide 20 mg tablet 20 mg PO DAILY Qty: 90 2RF metoprolol succinate [Toprol XL] 50 mg tablet extended release 24 hr 50 mg PO DAILY Qty: 90 0RF Xarelto 20 mg tablet 20 mg PO QPM Qty: 90 0RF Rx Instructions: must administer with evening meal donepezil 5 mg tablet 5 mg PO QHS Qty: 90 0RF ferrous sulfate 324 mg (65 mg iron) tablet,delayed release (DR/EC) 324 mg PO DAILY Qty: 90 2RF Rx Instructions: TAKE 1 TABLET BY MOUTH EVERY DAY potassium chloride 20 mEq packet 20 meq PO DAILY Qty: 100 3RF Follow-up/Referrals: Paco Collins MD [Primary Care Provider] - Time of Disposition: 04:29
[2024-07-24 02:26] LABS: Add Urine Microscopic? NO; Appearance Urine Clear (Clear); Bilirubin Urine Negative (Negative); Blood Urine Negative (Negative); Color Urine Yellow (Yellow); Glucose Urine UA Negative (Negative); Ketones Urine Negative (Negative); Leukocyte Esterase Ur Negative LEU/UL (Negative); Nitrate Urine Negative (Negative); Protein Urine Negative (Negative); Specific Grav Ur 1.019 (1.001-1.035)
[2024-07-24 02:28] LABS: Basophils Percent Auto 0.3 % (0.2-1.2); Eosinophils Absolute Auto 0.1 K/mm3 (0-0.3); Eosinophils Percent Auto 1.9 % (0-4.4); Hematocrit 42.5 % (37.0-47.0); Hemoglobin 13.6 g/dL (12.0-15.0); Immature Granulocyte Absolute 0.02 K/mm3 (0.00-0.031); Immature Granulocyte Percent A 0.5 % (0-0.5); Immature Platelet Fraction Pct 8.6 % (0.9-11.2); Lymphocytes Absolute Auto 0.39 K/mm3 (0.9-3.2); Lymphocytes Percent Auto 10.5 % (18.3-44.2); Mean Corpuscular Volume 96.8 fl (80-100); Mean Platelet Volume 10.9 fl (7.4-10.4); Monocytes Absolute Auto 0.3 K/mm3 (0.1-0.6); Neutrophils Percent Auto 79.8 % (45.5-73.1); Nucleated Red Blood Cells Perc 0.5 % (0.0-0.2); Platelet Count Result 97 k/mm3 (150-375); Red Blood Count 4.39 M/mm3 (4.2-5.4); Red Cell Distribution Width 17.1 % (11.5-14.5); White Blood Count 3.7 K/mm3 (4.5-10.0)
[2024-07-24] MEDS: SODIUM CHLORIDE 0.9% IV 1,000 ML 999 ML IV CONT ×2 (02:33→03:56)
--- NOTE | 2024-07-24 02:34 | PC.NURSE ---
Pt core temp is 88.2 upon arrival to ED, fluid warmer in use to administer warm fluids to pt intravenously at this time.
[2024-07-24 02:35] LABS: Creatine Kinase < 20 U/L (30-135)
[2024-07-24 02:36] LABS: Alanine Aminotransferase 28 U/L (6-35); Albumin Level 3.2 g/dL (3.5-5.1); Alkaline Phosphatase 86 U/L (38-126); Anion Gap 7 mmol/L (4-12); Aspartate Amino Transferase 28 U/L (14-36); Bilirubin,Total 1.9 mg/dL (0.2-1.3); Blood Urea Nitrogen 42 mg/dL (7-17); Calcium 9.2 mg/dL (8.4-10.2); Carbon Dioxide 26 mmol/L (22-30); Chloride 112 mmol/L (98-107); Estimated CRCL calculation 40 ml/min; Estimated Glomerular Filt Rate > 60; Glucose 97 mg/dL (65-110); Potassium 3.8 mmol/L (3.4-5.0); Sodium 145 mmol/L (137-145)
[2024-07-24 02:37] LABS: Ammonia < 9 umol/L (9-30); Magnesium 2.5 mg/dL (1.6-2.3)
[2024-07-24 02:37] LABS: Lactic Acid Reflex 1.7 mmol/L (0.7-2.0)
[2024-07-24 02:39] LABS: INR 2.4; Prothrombin Time 26.8 Seconds (11.1-14.7)
[2024-07-24 02:41] LABS: Partial Thromboplastin Time 56.9 Seconds (22.3-36.8)
[2024-07-24 02:42] LABS: Amphetamine Screen Urine Negative (Negative); Barbiturate Screen Urine Negative (Negative); Benzodiazepines Screen Urine Negative (Negative); Cannabinoid Screen Urine Negative (Negative); Cocaine Screen Urine Negative (Negative); Methadone Screen Urine Negative (Negative); Opiate Screen Urine Negative (Negative); Phencyclidine Screen Urine Negative (Negative)
[2024-07-24 02:48] LABS: Anisocytosis 1+; Burr Cells 1+; Large Platelets Present; Platelet Estimate Decreased (Adequate); Poikilocytosis 1+; Schistocytes None Seen; Tear Drop Cells 1+
[2024-07-24 03:01] LABS: Influenza A QL RT-PCR Negative (Negative); Influenza B QL RT-PCR Negative (Negative); RSV RNA, RT-PCR Negative (Negative); SARS-CoV-2 RNA PCR Negative (Negative)
[2024-07-24] MEDS: PIPERACILLIN/TAZ 4.5G/NS 100ML 4.5 GM/100 ML BAG IVPB (03:08)
[2024-07-24] MEDS: VANCOMYCIN 2,000 MG/NS 500 ML 2,000 MG/500 ML BAG 250 MG IVPB (04:02)
[2024-07-24 04:42] LABS: Free T4 Free Thyroxine Reflex 1.63 ng/dL (0.78-2.19)
--- NOTE | 2024-07-24 05:08 | P.HP_ITS ---
H&P: HPI History of Present Illness Date/Time: 07/24/24 05:08 Chief Complaint: altered LOC, hypothermia, sepsis Narrative: This is an 89 year old female patient with history of dementia, CKD, atrial fibrillation, breast cancer, diastolic congestive heart failure, HTN and iron deficiency anemia who was sent to ER from assisted by EMS for decreasing level of consciousness throughout the day. EMS reported that heart rate was as low as 35 on design and sales consultant and they gave atropine 1 mg IV push. Patient has DNR POLST form completed. In ER patient was found to be severely hypothermic with decreased WBC (though she usually runs on the low side of normal.) Patient is on Xarelto due to afib history and her bleeding times were noted to be elevated. CT of head is negative for acute intracranial bleeding. CXR appears to have multifocal pneumonia so patient was given 2 liters of IV fluid bolus and treated with vancomycin and Zosyn. Wang Hugger in place and her IV fluids were warmed. When getting warmer patient was responding more in ER. She has history of afib with slow ventricular response related to metoprolol. Her heart rate has also increased to normal range as temperature is improving. Patient was recently treated in the ER on 07/13/24 for fall with minor head injury and she was kept overnight in order to move from assisted living to assisted at that time. Tonight Flu/RSV/Covid were negative. Platelets noted to be mildly low at 97. On exam patient is localizing to pain and forcing eyes closed but not following commands or verbalizing to us. Thus HPI/ROS are very limited. No family present. Review of Systems Review of Systems: ROS unobtainable: Yes unobtainable due to medical condition and unobtainable due to mental status [facility] Past Medical History Medical History Cancer of left breast Chronic kidney disease Atrial fibrillation Gastric ulcer Breast cancer Chronic diastolic congestive heart failure Iron deficiency anemia Current use of fdc anticoagulation Essential (primary) hypertension Surgical History Surgical History History of cataract extraction History of appendectomy History of tonsillectomy and adenoidectomy History of left mastectomy History of hysterectomy Family History Family History Father Congestive heart failure Heart disease Social History Social History Social History: Surrogate medical decision maker: Camille Belle, daughter. Code status: DNR with POLST form Smoking status: Never smoker Second hand tobacco smoke exposure: No Alcohol intake: never Substance use: never Substance use type: does not use Do You Feel Safe in your Home?: Yes Lack of Transportation: No Lack of Food: Never True Current Housing: I Have Housing Concerned About Future Housing: No Difficulty Paying Gas/Electric Bills: No Difficulty Paying for Meds: No Currently Unemployed: No Education: High School Diploma/GED Difficulty w/ Childcare or Family Care: No Additional living arrangements comments: passed in January 2024. They have 1 daughter who lives locally. She lives at [facility] Spiritual care concerns: No Meds Home Medications and Allergies Home Medications ?Medication ?Instructions ?Recorded ?Confirmed ?Type ascorbic acid (vitamin C) 500 mg 500 mg PO DAILY 08/14/19 06/16/24 History capsule,extended release magnesium 200 mg tablet 200 mg PO HS 08/14/19 06/16/24 History furosemide 20 mg tablet 20 mg PO DAILY #90 tabs 09/06/23 06/16/24 Rx metoprolol succinate 50 mg 50 mg PO DAILY #90 tabs 04/23/24 06/16/24 Rx tablet,extended release 24 hr (Toprol XL) rivaroxaban 20 mg tablet (Xarelto) 20 mg PO QPM #90 tabs 04/23/24 06/16/24 Rx donepezil 5 mg tablet 5 mg PO QHS #90 tabs 05/20/24 06/16/24 Rx omeprazole 20 mg capsule,delayed 20 mg PO DAILY 05/30/24 06/16/24 History release polyethylene glycol 3350 17 gram 17 g PO QAM #14 ea 06/03/24 06/16/24 Rx oral powder packet (Miralax) ferrous sulfate 324 mg (65 mg 324 mg PO DAILY #90 tabs 06/04/24 06/16/24 Rx iron) tablet,delayed release potassium chloride 20 mEq oral 20 meq PO DAILY #100 ea 06/10/24 06/16/24 Rx packet acetaminophen 325 mg capsule 650 mg PO Q6H PRN fever or pain 07/24/24 07/24/24 History Allergies Allergy/AdvReac Type Severity Reaction Status Date / Time donepezil Allergy Unknown Unknown Verified 07/24/24 06:30 memantine Allergy Unknown Unknown Verified 07/24/24 06:30 Vital Signs Vital Signs - 24 hr 07/24/24 01:31 07/24/24 02:30 07/24/24 02:30 Temperature 31.2 C L Pulse Rate 57 L Respiratory Rate 15 Blood Pressure 119/51 L Pulse Oximetry 95 96 Oxygen Delivery Room Air Room Air 07/24/24 02:31 07/24/24 03:58 07/24/24 04:47 Temperature 31.8 C L 32.7 C L 33.6 C L Pulse Rate 43 L 59 L Respiratory Rate 13 18 Blood Pressure 102/60 117/78 Pulse Oximetry 96 94 Oxygen Delivery Exam Narrative: GENERAL: Elderly female altered level of consciousness does not open eyes to voice localizes to pain HEAD: Normocephalic, atraumatic. Pupils 3 mm not sufficiently reactive to light ENT:? Mucous membranes tacky. CHEST: Diminished bilaterally HEART: Regular rate and irregularly irregular rhythm. ?Pedal pulses dopplered ABDOMEN: Soft, bowel sounds present, generalized tenderness noted throughout all quadrants EXTREMITIES: Bilateral lower extremity edema worse on the right with significant bruising on the right and slight bruising near the left knee. Pedal pulses dopplered. 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 Pupils 3 mm not significantly reactive to light but patient was fighting to keep her eyelids closed on pupil exam PSYCH: Unable to assess due to altered LOC H&P: Results Labs Labs: Short CBC 07/24/24 Range/Units 02:05 WBC 3.7 L (4.5-10.0) K/mm3 Hgb 13.6 (12.0-15.0) g/dL Hct 42.5 (37.0-47.0) % Plt Count 97 L (150-375) k/mm3 [facility] 07/24/24 02:05 Sodium 145 Potassium 3.8 Chloride 112 H Carbon Dioxide 26 BUN 42 H D Creatinine 0.86 Glucose 97 Calcium 9.2 Cardiac Enzymes 07/24/24 Range/Units 02:05 Total Creatine Kinase < 20 L (30-135) U/L Liver Function 07/24/24 Range/Units 02:05 Total Bilirubin 1.9 H (0.2-1.3) mg/dL AST 28 (14-36) U/L ALT 28 (6-35) U/L Alkaline Phosphatase 86 (38-126) U/L Albumin 3.2 L (3.5-5.1) g/dL Urine 07/24/24 Range/Units 02:05 Urine Color Yellow (Yellow) Urine Appearance Clear (Clear) Urine pH 5.0 (5.0-9.0) Ur Specific [place] 1.019 (1.001-1.035) Urine Protein Negative (Negative) mg/dL Urine Glucose (UA) Negative (Negative) mg/dL Pulse Oximetry SpO2 results: 94-96% on room air Attestation: I personally reviewed and interpreted this pulse oximetry as follows: Interpretation: no need for supplemental oxygenation at this time Imaging CT scan - head: My impression: My independent interpretation of CT scan of head shows no large intracranial bleed, mass, midline shift or skull fracture. Radiologist's impression: CT head without contrast Indication: Altered mental status COMPARISON: 07/13/2024 Technique: Serial scans were obtained through the brain without the administration of contrast. Dose reduction technique was used on this scan by utilizing automated exposure control and iterative reconstruction technique. The dose-length product (DLP) was 681.00 mGy-cm. Findings: There is no evidence of intracranial hemorrhage, mass lesion, or acute infarct. Chronic infarct noted in the posterior right temporal lobe to right parietal lobe. The ventricles and subarachnoid spaces are dilated, consistent with mild to moderate atrophy. Low attenuation regions are seen within the periventricular white matter bilaterally, likely representing changes from chronic microvascular ischemic disease. There is no evidence of edema, mass effect or midline shift. The visualized paranasal sinuses and mastoid air cells are clear. Impression: No intracranial hemorrhage, mass, or acute infarct. 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 Atrophy and chronic white matter changes, as above. Reviewed, dictated and finalized at location . [facility] Chest x-ray: My impression: My independent interpretation of 1 view portable chest xray shows what appears to be multifocal pneumonia vs pulmonary edema. Radiologist's impression: Portable chest x-ray Comparison: 07/13/2024 Clinical History: Infection Findings: There is bibasilar and left perihilar airspace disease. Possible minimal right pleural effusion. Cardiomediastinal silhouette is stable. Bones and soft tissues are unremarkable. Impression: Bibasilar left perihilar pulmonary edema versus bilateral pneumonia. Correlate clinically. Minimal left pleural effusion. Stable cardiomegaly. Reviewed, dictated and finalized at location [facility] Assessment and Plan Assessment and plan (1) Hypothermia: Code(s): T68.XXXA - Hypothermia, initial encounter Status: Acute Assessment and Plan: -Initial temperature 31.2 degrees Celsius -Wang hugger in place by ER, up to 34.2 degrees on admit to floor -Warmed IV fluids given in ER -Expect we will be able to remove Wang hugger soon as temp is improving -Would benefit from goals of care conversation with family as POL says Selective Treatment rather than comfort measures. (2) Sepsis: Code(s): A41.9 - Sepsis, unspecified organism Status: Acute Assessment and Plan: -Altered mental status with severe hypothermia, depressed WBC of 3.7 and findings of multifocal pneumonia on CXR -ER gave 2 liters warmed fluid bolus, IV vancomycin and IV Zosyn -Will change Zosyn to cefepime and Flagyl to prevent renal insult (3) Altered mental status: Code(s): R41.82 - Altered mental status, unspecified Status: Acute Assessment and Plan: -Suspected to be due to sepsis/hypothermia -Patient localizes to pain, not answering questions at time of my exam -Did say her name for ER provider (4) Atrial fibrillation with slow ventricular response: Code(s): I48.91 - Unspecified atrial fibrillation Status: Acute Assessment and Plan: -Known history of slow afib due to metoprolol and donepezil -Hold metoprolol today (5) Multifocal pneumonia: Code(s): J18.9 - Pneumonia, unspecified organism Status: Acute Assessment and Plan: -CXR with multifocal infiltrates and patient septic with hypothermia, depressed WBC, altered LOC, tachypnea, new oxygen requirement. -MRSA PCR ordered -Vancomycin, cefepime, Flagyl for now -Send urine Legionella and pneumococcal antigens (6) Stage 3a chronic kidney disease (CKD): Code(s): N18.31 - Chronic kidney disease, stage 3a Status: Chronic Assessment and Plan: -Watch renal function with receiving vancomycin, Zosyn in ER and IV contrast for CTA chest with abd/pelvis follow through -s/p 2 liter bolus and IV fluids at 100 mL/hr (7) Chronic diastolic congestive heart failure: Code(s): I50.32 - Chronic diastolic (congestive) heart failure Status: Acute Assessment and Plan: -New oxygen demand as patient on nasal cannula when I was previously informed she was on room air -CTA pending -Will order Echo as well as one year ago echo does not comment on degree of diastolic dysfunction but previous chart diagnosis present. -Will likely need IV diuresis -Temp probe Arriaga in place due to hypothermia Plan Goals of care conversation needed with family due to concerning presentation and Selective Measures chosen on POLST. Wang hugger until Temp to 96, every 2 hour check due to IMU status patient. Code Status: DNR/DNI per POLST form VTE prophylaxis: SCD only due to thrombocytopenia and elevated PTT/INR Hold metoprolol and Xarelto for now Ordered DIC panel Ordered CTA chest with abd/pelvis follow through due to concern for PE, pulmonary edema, pneumonia and abdomen globally tender to touch. Quality VTE Prophylaxis VTE prophylaxis: mechanical ordered If No VTE Prophylaxis Answer both mechanical and pharmacologic: Reason no pharmacologic proph: medical contraindication active bleeding/bleeding risk and thrombocytopenia Due to a high probability of clinically significant, life threatening deterioration, the patient required my highest level of preparedness to intervene emergently and I personally spent this critical care time directly and personally managing the patient. This critical care time included obtaining a history; examining the patient; pulse oximetry; ordering and review of studies; arranging urgent treatment with development of a management plan; evaluation of patient's response to treatment; frequent reassessment; and discussions with other providers. It was exclusive of separately billable procedures and treating other patients and teaching time. Please see Assessment and Plan section and the rest of the note for further information on patient assessment and treatment. Critical Care time: 45 minutes Hospitalist MIPS Advance Care Plan I have confirmed that the patient's Advanced Care Plan is present, code status is documented, or surrogate decision maker is listed in patient medical record.: Yes Medication Reconciliation I have utilized all available resources to obtain, update and review the patients current medications (includes all prescriptions, OTC, herbals, cannabis, and nutritional supplements).: Yes
[2024-07-24 05:24] LABS: Total Triiodothyronine (T3) 0.94 NG/ML (0.97-1.69)
--- NOTE | 2024-07-24 05:27 | ADMGEN ---
0527: This patient, Annamarie Belle, was admitted to IMU Room 214-01. Patient/family oriented to hospital policies and general routines including ID bracelet, bed and alarms, visiting hours, pain management, procedures, bathroom and other care routines, personal items, smoking policy, room service/diet, and visiting hours. Information on how to activate the Rapid Response Team has been discussed. Patient/Family are encouraged to report perceived risks to care and to ask questions if they do not understand what they are told or what they should do.
[2024-07-24 06:42] LABS: Alveolar/Arterial O2 Gradient 50.8 mmHg; Base Excess ABG -3.9 mEq/l (+/-2.0); Fractional Inspired Oxygen 21 %; HCO3 ABG 19.7 mEq/l (22.0-26.0); Oxygen Content ABG 14.3 %vol (16.0-22.0); Oxygen Saturation ABG 92.4 % (95.0-100.0); Oxyhemoglobin 89.8 % THb (90.0-100.0); PCO2 ABG 31.1 mmHg (35.0-45.0); PO2 ABG 61.7 mmHg (80.0-100.0); PO2 FiO2 Ratio Arterial Blood 2.94 %; Total Hemoglobin 11.3 g/dL (12.0-18.0)
[2024-07-24 06:43] LABS: Device ROOM AIR; Modified Allen's Test Pass; Site Drawn RIGHT RADIAL
[2024-07-24 06:49] LABS: Basophils Percent Auto 0.3 % (0.2-1.2); Eosinophils Absolute Auto 0.1 K/mm3 (0-0.3); Eosinophils Percent Auto 1.4 % (0-4.4); Hematocrit 35.6 % (37.0-47.0); Hemoglobin 10.9 g/dL (12.0-15.0); Immature Granulocyte Absolute 0.02 K/mm3 (0.00-0.031); Immature Granulocyte Percent A 0.6 % (0-0.5); Lymphocytes Absolute Auto 0.38 K/mm3 (0.9-3.2); Lymphocytes Percent Auto 10.7 % (18.3-44.2); Mean Corpuscular HGB Conc 30.6 g/dl (32-36); Mean Corpuscular Hemoglobin 30.3 pg (26-34); Mean Corpuscular Volume 98.9 fl (80-100); Mean Platelet Volume 11.6 fl (7.4-10.4); Monocytes Absolute Auto 0.2 K/mm3 (0.1-0.6); Monocytes Percent Auto 6.8 % (2.6-8.5); Neutrophils Absolute Auto 2.9 K/mm3 (1.3-6.7); Neutrophils Percent Auto 80.2 % (45.5-73.1); Nucleated Red Blood Cells Perc 0.8 % (0.0-0.2); Platelet Count Result 88 k/mm3 (150-375); Red Cell Distribution Width 16.8 % (11.5-14.5); White Blood Count 3.6 K/mm3 (4.5-10.0)
[2024-07-24 06:52] LABS: Hematocrit 34.9 % (37.0-47.0); Hemoglobin 10.9 g/dL (12.0-15.0); Immature Platelet Fraction Pct 7.9 % (0.9-11.2); Mean Corpuscular HGB Conc 31.2 g/dl (32-36); Mean Corpuscular Volume 99.1 fl (80-100); Mean Platelet Volume 11.6 fl (7.4-10.4); Platelet Count Result 83 k/mm3 (150-375); Red Blood Count 3.52 M/mm3 (4.2-5.4); Red Cell Distribution Width 16.9 % (11.5-14.5); White Blood Count 3.7 K/mm3 (4.5-10.0)
[2024-07-24] MEDS: SODIUM CHLORIDE 0.9% IV 1,000 ML 100 ML IV CONT (06:53)
[2024-07-24 06:55] LABS: Alanine Aminotransferase 24 U/L (6-35); Albumin Level 2.8 g/dL (3.5-5.1); Alkaline Phosphatase 70 U/L (38-126); Anion Gap 9 mmol/L (4-12); Aspartate Amino Transferase 26 U/L (14-36); Bilirubin,Total 1.8 mg/dL (0.2-1.3); Blood Urea Nitrogen 40 mg/dL (7-17); Calcium 8.4 mg/dL (8.4-10.2); Carbon Dioxide 21 mmol/L (22-30); Chloride 117 mmol/L (98-107); Estimated CRCL calculation 40 ml/min; Estimated Glomerular Filt Rate > 60; Glucose 69 mg/dL (65-110); Magnesium 2.2 mg/dL (1.6-2.3); Potassium 3.8 mmol/L (3.4-5.0); Sodium 147 mmol/L (137-145)
[2024-07-24 06:56] LABS: Magnesium 2.3 mg/dL (1.6-2.3)
[2024-07-24] MEDS: metroNIDAZOLE 500 MG/ISO 100ML 500 MG/100 ML BAG 100 MG IVPB (07:00)
[2024-07-24 07:27] LABS: INR 2.5; Prothrombin Time 27.6 Seconds (11.1-14.7)
[2024-07-24 07:28] LABS: Fibrinogen 291 mg/dl (215-510); Partial Thromboplastin Time 49.9 Seconds (22.3-36.8)
[2024-07-24 07:38] LABS: Anisocytosis 1+; Burr Cells 1+; Platelet Estimate Decreased (Adequate); Poikilocytosis 1+; Schistocytes None Seen
[2024-07-24 07:39] LABS: D Dimer 1.52 ug/mL (<0.48)
[2024-07-24 09:02] LABS: MRSA (PCR) NOT DETECTED (NOT DETECTE)
[2024-07-24] MEDS: CEFEPIME 2 GM/NS 50 ML 2 GM/50 ML BAG IVPB (09:13)
--- NOTE | 2024-07-24 09:16 | P.PNIM_ITS ---
Progress Note: A&P Assessment and Plan (1) Hypertensive heart disease with heart failure: Code(s): I11.0 - Hypertensive heart disease with heart failure Status: Acute (2) Chronic diastolic CHF (congestive heart failure): Code(s): I50.32 - Chronic diastolic (congestive) heart failure Status: Chronic (3) Acute exacerbation of CHF (congestive heart failure): Qualifiers: Heart failure type: combined systolic and diastolic Qualified Code(s): I50.43 - Acute on chronic combined systolic (congestive) and diastolic (congestive) heart failure Code(s): I50.9 - Heart failure, unspecified Status: Acute (4) Chronic diastolic congestive heart failure: Code(s): I50.32 - Chronic diastolic (congestive) heart failure Status: Acute (5) Afib: Qualifiers: Atrial fibrillation type: unspecified chronic Qualified Code(s): I48.20 - Chronic atrial fibrillation, unspecified Code(s): I48.91 - Unspecified atrial fibrillation Status: Chronic (6) Atrial fibrillation with slow ventricular response: Code(s): I48.91 - Unspecified atrial fibrillation Status: Acute (7) Sepsis: Code(s): A41.9 - Sepsis, unspecified organism Status: Acute Plan This is an 89 year old female patient with history of dementia, CKD, atrial fibrillation, breast cancer, diastolic congestive heart failure, HTN and iron deficiency anemia who was [facility] from [facility] by EMS for decreasing level of consciousness throughout the day. EMS reported that heart rate was as low as 35 on director of cardiac rehabilitation and they gave atropine 1 mg IV push. Patient has DNR POLST form completed. In ER patient was found to be severely hypothermic with decreased WBC (though she usually runs on the low side of normal.) Patient is on Xarelto due to afib history and her bleeding times were noted to be elevated. CT of head is negative for acute intracranial bleeding. CXR appears to have multifocal pneumonia so patient was given 2 liters of IV fluid bolus and treated with vancomycin and Zosyn. Wang Hugger in place and her IV fluids were warmed. (1) Hypothermia: Code(s): T68.XXXA - Hypothermia, initial encounter Status: Acute Assessment and Plan: -Initial temperature 31.2 degrees Celsius -Wang hugger in place by ER, up to 34.2 degrees on admit to floor -Warmed IV fluids given in ER -Expect we will be able to remove Wang reer soon as temp is improving -Would benefit from goals of care conversation with family as MARCIANO says Selective Treatment rather than comfort measures. Hypothermia is improving, continue Wang Hugger (2) Sepsis: Code(s): A41.9 - Sepsis, unspecified organism Status: Acute Assessment and Plan: -Altered mental status with severe hypothermia, depressed WBC of 3.7 and findings of multifocal pneumonia on CXR -ER gave 2 liters warmed fluid bolus, IV vancomycin and IV Zosyn MRSA negative, discontinue vancomycin, start a doxy and Zosyn IV Multifocal pneumonia CTA chest abdomen pelvis shows multifocal pneumonia involving right upper and middle lobe and small pleural effusions Antibiotics see above pancytopenia all 3 cell lines are trending down Possible due to severe sepsis No obvious bleeding Follow-up CBC Acute respiratory failure with hypoxemia ABG showed hypoxemia Start O2 therapy keep pulse ox above 94 Dehydration, hypernatremia chemistry showed hypernatremia 147,, elevated BUN creatinine ratio 40/0.84, bicarbonate 21 Switch from normal saline to D5 half-normal saline 125 mL/hour Altered mental status: Code(s): R41.82 - Altered mental status, unspecified Status: Acute Assessment and Plan: -Suspected to be due to sepsis/hypothermia and hypothermia -Patient localizes to pain, not answering questions at time of my exam (4) Atrial fibrillation with slow ventricular response: Code(s): I48.91 - Unspecified atrial fibrillation Status: Acute Assessment and Plan: -Known history of slow afib due to metoprolol and donepezil -Hold metoprolol today (5) Multifocal pneumonia: Code(s): J18.9 - Pneumonia, unspecified organism Status: Acute Assessment and Plan: -CXR with multifocal infiltrates and patient septic with hypothermia, depressed WBC, altered LOC, tachypnea, new oxygen requirement. -MRSA PCR ordered -Vancomycin, cefepime, Flagyl for now -Send urine Legionella and pneumococcal antigens (6) Stage 3a chronic kidney disease (CKD): Code(s): N18.31 - Chronic kidney disease, stage 3a Status: Chronic Assessment and Plan: -Watch renal function with receiving vancomycin, Zosyn in ER and IV contrast for CTA chest with abd/pelvis follow through -s/p 2 liter bolus and IV fluids at 100 mL/hr (7) Chronic diastolic congestive heart failure: Code(s): I50.32 - Chronic diastolic (congestive) heart failure Status: Acute Assessment and Plan: -New oxygen demand as patient on nasal cannula when I was previously informed she was on room air -CTA shows no pulmonary embolism, right upper lobe pneumonia and right middle lobe pneumonia small pleural effusion -pending echocardiogram -Temp probe Arriaga in place due to hypothermia Subjective Date/time seen: 07/24/24 09:16 Interval history: Temperature is 96.6, heart rate 58, blood pressure stable, pulse ox 93 on room air, labs reviewed, patient has a pancytopenia all 3 cell lines are trending down. ABG showed hypoxemia, chemistry showed hyponatremia, elevated BUN creatinine ratio 40/0.84, bicarbonate 21. Patient is still confused, unable to follow commands, unable to answer questions. Patient does not have obvious distress Exam Narrative: GENERAL: Ill-appearing, confused, no obvious distress, on Wang Hugger HEAD: Normocephalic, atraumatic. Pupils 3 mm not sufficiently reactive to light ENT:? Mucous membranes tacky. CHEST: Diminished bilaterally HEART: Regular rate and irregularly irregular rhythm. ?Pedal pulses dopplered ABDOMEN: Soft, bowel sounds present, generalized tenderness noted throughout all quadrants EXTREMITIES: Bilateral lower extremity edema worse on the right with significant bruising on the right and slight bruising near the left knee. Pedal pulses dopplered. 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 NEURO: Arousable, not oriented x3, moving all extremities PSYCH: Somnolent Objective Data Vital Signs Vital Signs: Vital Signs - 24 hr 07/24/24 01:31 07/24/24 02:30 07/24/24 02:30 Temperature 88.2 F L Pulse Rate 57 L Respiratory Rate 15 Blood Pressure 119/51 L Pulse Oximetry 95 96 Oxygen Delivery Room Air Room Air 07/24/24 02:31 07/24/24 03:58 07/24/24 04:47 Temperature 89.2 F L 91 F L 92.5 F L Pulse Rate 43 L 59 L Respiratory Rate 13 18 Blood Pressure 102/60 117/78 Pulse Oximetry 96 94 Oxygen Delivery 07/24/24 05:15 07/24/24 05:27 07/24/24 05:32 Temperature 93.6 F L 94.3 F L 94.4 F L Pulse Rate 60 Respiratory Rate 22 H Blood Pressure 93/53 L Pulse Oximetry 100 Oxygen Delivery 07/24/24 05:53 07/24/24 06:00 07/24/24 06:00 Temperature 94.7 F L Pulse Rate 60 Respiratory Rate Blood Pressure Pulse Oximetry Oxygen Delivery Room Air 07/24/24 07:21 07/24/24 07:55 07/24/24 09:12 Temperature 95.9 F L 96.2 F L 96.6 F L Pulse Rate 59 L 58 L Respiratory Rate 18 Blood Pressure 125/95 H 110/83 Pulse Oximetry 93 Oxygen Delivery Intake/Output Intake/Output: Intake & Output 07/21/24 07/22/24 07/23/24 07/24/24 23:59 23:59 23:59 23:59 Intake Total 2100 Balance 2100 Meds/Results Medications: Active Medications Generic Name Dose Route Start Last Admin Trade Name Freq PRN Reason Stop Dose Admin Acetaminophen 650 mg 07/24/24 06:29 Acetaminophen 325 Mg Tablet PO Q6H PRN fever or pain Ferrous Sulfate 325 mg 07/24/24 09:00 Ferrous Sulfate [address] PO DAILY MARIO Furosemide 40 mg 07/24/24 06:20 07/24/24 06:54 Furosemide Inj 40 Mg/4 Ml Vial IV PUSH Not Given BID MARIO Vancomycin HCl 1,250 mg in 250 mls @ 166.667 mls/hr 07/25/24 04:00 Vancomycin 1,250 Mg/Ns 250 Ml IVPB Q24H MARIO Sodium Chloride 1,000 mls @ 100 mls/hr 07/24/24 04:13 07/24/24 06:53 Normal Saline Iv IV CONT 07/24/24 14:12 100 mls/hr .Q10H STA Administration Cefepime HCl 2 gm in 50 mls @ 100 mls/hr 07/24/24 09:00 07/24/24 09:13 Maxipime 2 Gm/Ns 50 Ml IVPB 100 mls/hr Q12HR MARIO Administration Metronidazole 500 mg in 100 mls @ 100 mls/hr 07/24/24 06:00 07/24/24 07:00 Flagyl 500 Mg/Iso Soln 100 Ml IVPB 100 mls/hr Q8HR MARIO Administration Pantoprazole Sodium 40 mg 07/24/24 09:00 Pantoprazole Sodium Iv 40 Mg Vial IV PUSH QAM [facility] Perflutren Lipid Microsphere 0 ml 07/24/24 06:19 Perflutren Lipid Microspheres 1.5 Ml Vial Diluted To 10 Ml Total Volume IV PUSH 07/27/24 06:20 ONCE PRN adequate visualization Protocol Polyethylene Glycol 17 gm 07/24/24 09:00 Polyethylene Glycol 3350 17 Gm Powd.Pack PO QAM [facility] Potassium Chloride 20 meq 07/24/24 09:00 Potassium Chloride 20 Meq Packet (For Liquid) PO DAILY [facility] Radiology Results: ITS Impressions Head CT 07/24/24 05:45 Impression: No intracranial hemorrhage, mass, or acute infarct. 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 Atrophy and chronic white matter changes, as above. Chest X-Ray 07/24/24 06:04 Impression: Bibasilar left perihilar pulmonary edema versus bilateral pneumonia. Correlate clinically. Minimal left pleural effusion. Stable cardiomegaly. Labs Labs: Laboratory Results - last 24 hr 07/24/24 07/24/24 07/24/24 02:05 02:11 06:19 WBC 3.7 L 3.7 L RBC 4.39 3.52 L Hgb 13.6 10.9 L Hct 42.5 34.9 L MCV 96.8 99.1 MCH 31.0 31.0 MCHC 32.0 31.2 L RDW 17.1 H 16.9 H Plt Count 97 L 83 L MPV 10.9 H 11.6 H Immature Gran % (Auto) 0.5 Neut % (Auto) 79.8 H Lymph % (Auto) 10.5 L [place] % (Auto) 7.0 Eos % (Auto) 1.9 Baso % (Auto) 0.3 Lymph # (Auto) 0.39 L [place] # (Auto) 0.3 Eos # (Auto) 0.1 Baso # (Auto) 0.0 Abs Immat Gran (auto) 0.02 Absolute Neuts (auto) 3.0 Absolute Nucleated RBC 0.020 H Nucleated RBC % 0.5 H Platelet Estimate Decreased Large Platelets Present % Immature Plt Fraction 8.6 7.9 Poikilocytosis 1+ Anisocytosis 1+ Tear Drop Cells 1+ [place] Cells 1+ Schistocytes None seen PT 26.8 H 27.6 H INR 2.4 2.5 APTT 56.9 H 49.9 H Fibrinogen 291 D-Dimer 1.52 H Puncture Site ABG pH ABG pCO2 ABG pO2 ABG PO2/FiO2 Ratio ABG HCO3 ABG O2 Saturation ABG O2 Content ABG Base Excess A-a Gradient Oxyhemoglobin Total Hemoglobin O2 Delivery Device O2 Liters/Min FiO2 Sodium 145 Potassium 3.8 Chloride 112 H Carbon Dioxide 26 Anion Gap 7 BUN 42 H D Creatinine 0.86 Estim Creat Clear Calc 40 Estimated GFR > 60 Glucose 97 Lactic Acid 1.7 Calcium 9.2 Magnesium 2.5 H 2.3 Total Bilirubin 1.9 H AST 28 ALT 28 Alkaline Phosphatase 86 Ammonia < 9 L Total Creatine Kinase < 20 L Total Protein 6.0 L Albumin 3.2 L Procalcitonin TSH (Reflex) 4.350 Free T4 1.63 Total T3 0.94 L Urine Color Yellow Urine Appearance Clear Urine pH 5.0 Ur Specific [place] 1.019 Urine Protein Negative Urine Glucose (UA) Negative Urine Ketones Negative Ur Blood (Man) Negative Urine Nitrate Negative Urine Bilirubin Negative Urine Urobilinogen 1.0 Leukocyte Esterase Rfl Negative Nasal MRSA (PCR) Urine Opiates Screen Negative Urine Methadone Screen Negative Ur Barbiturates Screen Negative Ur Phencyclidine Scrn Negative Ur Amphetamine Screen Negative U Benzodiazepines Scrn Negative Urine Cocaine Screen Negative U Cannabinoids Screen Negative Influenza A (RT-PCR) Negative Influenza B (RT-PCR) Negative RSV (RT-PCR) Negative SARS-CoV-2 RNA (RT-PCR) Negative 07/24/24 07/24/24 07/24/24 06:25 06:31 06:33 WBC 3.6 L RBC 3.60 L Hgb 10.9 L Hct 35.6 L MCV 98.9 MCH 30.3 MCHC 30.6 L RDW 16.8 H Plt Count 88 L MPV 11.6 H Immature Gran % (Auto) 0.6 H Neut % (Auto) 80.2 H Lymph % (Auto) 10.7 L [place] % (Auto) 6.8 Eos % (Auto) 1.4 Baso % (Auto) 0.3 Lymph # (Auto) 0.38 L [place] # (Auto) 0.2 Eos # (Auto) 0.1 Baso # (Auto) 0.0 Abs Immat Gran (auto) 0.02 Absolute Neuts (auto) 2.9 Absolute Nucleated RBC 0.030 H Nucleated RBC % 0.8 H Platelet Estimate Decreased Large Platelets % Immature Plt Fraction 8.0 Poikilocytosis 1+ Anisocytosis 1+ Tear Drop Cells [place] Cells 1+ Schistocytes None seen PT INR APTT Fibrinogen D-Dimer Puncture Site Right radial ABG pH 7.420 ABG pCO2 31.1 L ABG pO2 61.7 L ABG PO2/FiO2 Ratio 2.94 ABG HCO3 19.7 L ABG O2 Saturation 92.4 L ABG O2 Content 14.3 L ABG Base Excess -3.9 A-a Gradient 50.8 Oxyhemoglobin 89.8 L Total Hemoglobin 11.3 L O2 Delivery Device Room air O2 Liters/Min Not Reportable FiO2 21 Sodium 147 H Potassium 3.8 Chloride 117 H Carbon Dioxide 21 L Anion Gap 9 BUN 40 H Creatinine 0.84 Estim Creat Clear Calc 40 Estimated GFR > 60 Glucose 69 Lactic Acid Calcium 8.4 Magnesium 2.2 Total Bilirubin 1.8 H AST 26 ALT 24 Alkaline Phosphatase 70 Ammonia Total Creatine Kinase Total Protein 5.0 L Albumin 2.8 L Procalcitonin 0.0 TSH (Reflex) Free T4 Total T3 Urine Color Urine Appearance Urine pH Ur Specific [place] Urine Protein Urine Glucose (UA) Urine Ketones Ur Blood (Man) Urine Nitrate Urine Bilirubin Urine Urobilinogen Leukocyte Esterase Rfl Nasal MRSA (PCR) Urine Opiates Screen Urine Methadone Screen Ur Barbiturates Screen Ur Phencyclidine Scrn Ur Amphetamine Screen U Benzodiazepines Scrn Urine Cocaine Screen U Cannabinoids Screen Influenza A (RT-PCR) Influenza B (RT-PCR) RSV (RT-PCR) SARS-CoV-2 RNA (RT-PCR) 07/24/24 07:11 WBC RBC Hgb Hct MCV MCH MCHC RDW Plt Count MPV Immature Gran % (Auto) Neut % (Auto) Lymph % (Auto) [place] % (Auto) Eos % (Auto) Baso % (Auto) Lymph # (Auto) [place] # (Auto) Eos # (Auto) Baso # (Auto) Abs Immat Gran (auto) Absolute Neuts (auto) Absolute Nucleated RBC Nucleated RBC % Platelet Estimate Large Platelets % Immature Plt Fraction Poikilocytosis Anisocytosis Tear Drop Cells [place] Cells Schistocytes PT INR APTT Fibrinogen D-Dimer Puncture Site ABG pH ABG pCO2 ABG pO2 ABG PO2/FiO2 Ratio ABG HCO3 ABG O2 Saturation ABG O2 Content ABG Base Excess A-a Gradient Oxyhemoglobin Total Hemoglobin O2 Delivery Device O2 Liters/Min FiO2 Sodium Potassium Chloride Carbon Dioxide Anion Gap BUN Creatinine Estim Creat Clear Calc Estimated GFR Glucose Lactic Acid Calcium Magnesium Total Bilirubin AST ALT Alkaline Phosphatase Ammonia Total Creatine Kinase Total Protein Albumin Procalcitonin TSH (Reflex) Free T4 Total T3 Urine Color Urine Appearance Urine pH Ur Specific [place] Urine Protein Urine Glucose (UA) Urine Ketones Ur Blood (Man) Urine Nitrate Urine Bilirubin Urine Urobilinogen Leukocyte Esterase Rfl Nasal MRSA (PCR) Not detected Urine Opiates Screen Urine Methadone Screen Ur Barbiturates Screen Ur Phencyclidine Scrn Ur Amphetamine Screen U Benzodiazepines Scrn Urine Cocaine Screen U Cannabinoids Screen Influenza A (RT-PCR) Influenza B (RT-PCR) RSV (RT-PCR) SARS-CoV-2 RNA (RT-PCR)
[2024-07-24] MEDS: PANTOPRAZOLE SODIUM IV 40 MG VIAL IV PUSH (09:24)
[2024-07-24] MEDS: DEXTROSE 5%/0.45% SOD CHL 1,000 ML 125 ML IV CONT (10:45)
[2024-07-24] MEDS: DOXYCYCLINE 100 MG/NS 100 ML 100 MG/100 ML BAG IVPB ×2 (10:56→20:20)
[2024-07-24 11:21] LABS: Glucose Point of Care 76 mg/dl (65-105)
--- NOTE | 2024-07-24 13:48 | ECG_ITS ---
Test Date: 2024-07-24 15:04:31 Measurements Intervals [place] Rate: 55 P: 0 IA: 0 QRS: -17 QRSD: 108 T: -3 QT: 475 QTc: 458 Interpretive Statements ATRIAL FIBRILLATION WITH SLOW VENTRICULAR RESPONSE ST DEVIATION AND MODERATE T-WAVE ABNORMALITY, CONSIDER LATERAL ISCHEMIA [-0.1+ mV T-WAVE IN I/aVL/V5/V6] Compared to ECG 07/24/2024 01:42:20 T-wave abnormality now present Possible ischemia now present Myocardial infarct finding no longer present Electronically Signed On 07-25-2024 11:50:38 [employer] by Yee Ambrocio
--- NOTE | 2024-07-24 14:54 | PM.CNCAR ---
Assessment and Plan Assessment and plan (1) Longstanding persistent atrial fibrillation: Code(s): I48.11 - Longstanding persistent atrial fibrillation Status: Acute Assessment and Plan: Telemetry and EKG's demonstrate atrial fibrillation with slow ventricular response. Telemetry reviewed and no concerning bradycardia or pauses are seen. She does take metoprolol as an outpatient which is being held. Blood pressure is stable. Continue to hold metoprolol for now If she has tachycardia, this can be resumed She is on Xarelto for anticoagulation. Plt count 88k today - if this continues to trend downward she may not be appropriate for anticoagulation Continue to monitor on telemetry No further cardiac workup in this regard (2) Essential (primary) hypertension: Code(s): I10 - Essential (primary) hypertension Status: Chronic Assessment and Plan: Blood pressure stable (3) Current use of terminal press operator anticoagulation: Code(s): Z79.01 - detention (current) use of anticoagulants Status: Chronic Assessment and Plan: As above. Continue to monitor platelet count. (4) Chronic diastolic CHF (congestive heart failure): Code(s): I50.32 - Chronic diastolic (congestive) heart failure Status: Chronic Assessment and Plan: Has mild lower extremity edema and pleural effusion on CXR. Received IV furosemide which is now on hold. Ongoing diuresis as needed. (5) Multifocal pneumonia: Code(s): J18.9 - Pneumonia, unspecified organism Status: Acute Assessment and Plan: Abx and other management per hospitalist (6) Sepsis: Code(s): A41.9 - Sepsis, unspecified organism Status: Acute Assessment and Plan: Per hospitalist Plan Cardiology will sign off please call with questions. History of Present Illness History of Present Illness Consult date/time: 07/24/24 14:54 Requesting physician: Chester Chavarria MD Consult reason: Other (bradycardia) Reason For Visit: Sepsis, Multifocal pneumonia, Hypothermia Narrative: Annamarie Castro is an 89 year old female with atrial fibrillation, dementia, chronic kidney disease. [facility] because of decreased level of consciousness and altered mental status. She is being treated for pneumonia and sepsis. Cardiology is consulted for bradycardia. Patient does not verbalize, therefore unable to obtain history from the patient but according to her medical record she does have a history of bradycardia related to metoprolol for her atrial fibrillation. She appears comfortable and in no distress at the time of my evaluation. She is being warmed because of hypothermia on presentation. Review of Systems Review of Systems: ROS unobtainable: Yes unobtainable due to medical condition and unobtainable due to mental status PMFSH Past Medical History Medical History Cancer of left breast Chronic kidney disease Atrial fibrillation Gastric ulcer Breast cancer Chronic diastolic congestive heart failure Iron deficiency anemia Current use of terminal press operator anticoagulation Essential (primary) hypertension Surgical History Surgical History History of cataract extraction History of appendectomy History of tonsillectomy and adenoidectomy History of left mastectomy History of hysterectomy Family History Family History Father Congestive heart failure Heart disease Social History Social History Social History: Surrogate medical decision maker: Camille Belle, daughter. Code status: DNR with POLST form Smoking status: Never smoker Second hand tobacco smoke exposure: No Additional smoking assessment comments: unknow/[place] Alcohol intake: never Substance use: never Substance use type: does not use Do You Feel Safe in your Home?: Yes Lack of Transportation: No Lack of Food: Never True Current Housing: I Have Housing Concerned About Future Housing: No Difficulty Paying Gas/Electric Bills: No Difficulty Paying for Meds: No Currently Unemployed: No Education: High School Diploma/GED Difficulty w/ Childcare or Family Care: No Additional living arrangements comments: passed in January 2024. They have 1 daughter who lives locally. She lives at [facility] Spiritual care concerns: No Meds Home Medications and Allergies Home Medications ?Medication ?Instructions ?Recorded ?Confirmed ?Type ascorbic acid (vitamin C) 500 mg 500 mg PO DAILY 08/14/19 07/24/24 History capsule,extended release magnesium 200 mg tablet 400 mg PO HS 08/14/19 07/24/24 History furosemide 20 mg tablet 20 mg PO DAILY #90 tabs 09/06/23 07/24/24 Rx metoprolol succinate 50 mg 50 mg PO DAILY #90 tabs 04/23/24 07/24/24 Rx tablet,extended release 24 hr (Toprol XL) rivaroxaban 20 mg tablet (Xarelto) 20 mg PO QPM #90 tabs 04/23/24 07/24/24 Rx donepezil 5 mg tablet 5 mg PO QHS #90 tabs 05/20/24 07/24/24 Rx omeprazole 20 mg capsule,delayed 20 mg PO DAILY 05/30/24 07/24/24 History release polyethylene glycol 3350 17 gram 17 g PO QAM #14 ea 06/03/24 07/24/24 Rx oral powder packet (Miralax) ferrous sulfate 324 mg (65 mg 324 mg PO DAILY #90 tabs 06/04/24 07/24/24 Rx iron) tablet,delayed release potassium chloride 20 mEq oral 20 meq PO DAILY #100 ea 06/10/24 07/24/24 Rx packet acetaminophen 325 mg capsule 650 mg PO Q6H PRN fever or pain 07/24/24 07/24/24 History Allergies Allergy/AdvReac Type Severity Reaction Status Date / Time donepezil Allergy Unknown Unknown Verified 07/24/24 06:30 memantine Allergy Unknown Unknown Verified 07/24/24 06:30 Vital Signs Vital Signs - 24 hr 07/24/24 01:31 07/24/24 02:30 07/24/24 02:30 Temperature 31.2 C L Pulse Rate 57 L Respiratory Rate 15 Blood Pressure 119/51 L Pulse Oximetry 95 96 Oxygen Delivery Room Air Room Air Oxygen Flow Rate 07/24/24 02:31 07/24/24 03:58 07/24/24 04:47 Temperature 31.8 C L 32.7 C L 33.6 C L Pulse Rate 43 L 59 L Respiratory Rate 13 18 Blood Pressure 102/60 117/78 Pulse Oximetry 96 94 Oxygen Delivery Oxygen Flow Rate 07/24/24 05:15 07/24/24 05:27 07/24/24 05:32 Temperature 34.2 C L 34.6 C L 34.7 C L Pulse Rate 60 Respiratory Rate 22 H Blood Pressure 93/53 L Pulse Oximetry 100 Oxygen Delivery Oxygen Flow Rate 07/24/24 05:53 07/24/24 06:00 07/24/24 06:00 Temperature 34.8 C L Pulse Rate 60 Respiratory Rate Blood Pressure Pulse Oximetry Oxygen Delivery Room Air Oxygen Flow Rate 07/24/24 07:21 07/24/24 07:55 07/24/24 08:00 Temperature 35.5 C L 35.7 C L 35.7 C L Pulse Rate 59 L Respiratory Rate 18 Blood Pressure 125/95 H Pulse Oximetry 93 Oxygen Delivery Oxygen Flow Rate 07/24/24 08:00 07/24/24 09:12 07/24/24 09:44 Temperature 35.9 C L Pulse Rate 52 L 58 L Respiratory Rate Blood Pressure 110/83 Pulse Oximetry 94 Oxygen Delivery Nasal Cannula Oxygen Flow Rate 2 07/24/24 10:00 07/24/24 10:00 07/24/24 11:30 Temperature 35.9 C L 36.1 C L Pulse Rate 60 Respiratory Rate Blood Pressure Pulse Oximetry Oxygen Delivery Oxygen Flow Rate 07/24/24 11:45 07/24/24 12:00 07/24/24 13:56 Temperature 36.3 C L Pulse Rate 74 58 L 50 L Respiratory Rate 18 Blood Pressure 138/49 L Pulse Oximetry 100 Oxygen Delivery Oxygen Flow Rate Exam Const: General: comfortable and no acute distress; No alert or awake (asleep but responds to stimuli) Orientation/consciousness: patient oriented x3 HENMT: Head: normal to inspection Eyes: General: appearance normal, both eyes and all related structures Pupils: Equal, round and reactive pupils present Neck: Neck: normal visual inspection, supple and no JVD Resp: Effort & Inspection: normal respiratory effort Auscultation: clear to auscultation bilaterally and diminished lung sounds Cardio: Rate: regular rate Rhythm: abnormal rhythm irregularly irregular Heart sounds: S1 normal heart sound present, S2 normal heart sound present and no murmurs GI: Auscultation: normal bowel sounds Skin: General skin exam: normal color Neuro: General: No patient oriented x3 Cranial nerves: Yes Equal, round and reactive pupils present Extrem: General: edema Psych: Appearance: grossly normal Mental Status: mental status grossly abnormal Results Labs and Meds 07/24/24 06:31 07/24/24 06:33 Lab results: Cardiac Enzymes 07/24/24 07/24/24 Range/Units 02:05 06:33 AST 28 26 (14-36) U/L Coagulation 07/24/24 07/24/24 Range/Units 02:05 06:19 PT 26.8 H 27.6 H (11.1-14.7) Seconds APTT 56.9 H 49.9 H (22.3-36.8) Seconds CBC 07/24/24 07/24/24 07/24/24 Range/Units 02:05 06:19 06:31 WBC 3.7 L 3.7 L 3.6 L (4.5-10.0) K/mm3 RBC 4.39 3.52 L 3.60 L (4.2-5.4) M/mm3 Hgb 13.6 10.9 L 10.9 L (12.0-15.0) g/dL Hct 42.5 34.9 L 35.6 L (37.0-47.0) % Plt Count 97 L 83 L 88 L (150-375) k/mm3 Lymph # (Auto) 0.39 L 0.38 L (0.9-3.2) K/mm3 Potter # (Auto) 0.3 0.2 (0.1-0.6) K/mm3 Eos # (Auto) 0.1 0.1 (0-0.3) K/mm3 Baso # (Auto) 0.0 0.0 (0.0-0.1) K/mm3 Comprehensive Metabolic Panel 07/24/24 07/24/24 Range/Units 02:05 06:33 Sodium 145 147 H (137-145) mmol/L Potassium 3.8 3.8 (3.4-5.0) mmol/L Chloride 112 H 117 H (98-107) mmol/L Carbon Dioxide 26 21 L (22-30) mmol/L BUN 42 H D 40 H (7-17) mg/dL Creatinine 0.86 0.84 (0.7-1.0) mg/dL Glucose 97 69 (65-110) mg/dL Calcium 9.2 8.4 (8.4-10.2) mg/dL AST 28 26 (14-36) U/L ALT 28 24 (6-35) U/L Alkaline Phosphatase 86 70 (38-126) U/L Total Protein 6.0 L 5.0 L (6.3-8.2) g/dL Albumin 3.2 L 2.8 L (3.5-5.1) g/dL Intake and Output 07/23/24 07/24/24 07/24/24 23:59 07:59 15:59 Intake Total 2100 150 Balance 2100 150 Intake: IV 2100 150 Sodium Chloride 0.9% IV 1,000 2000 ml @ 999 mls/hr IV CONT .Q1H1M STA Rx#:[id number] Cefepime 2 gm/Ns 50 ml 2 gm In 50 50 ml @ 100 mls/hr IVPB Q12HR MARIO Rx#:[id number] Doxycycline 100 mg/Ns 100 ml 100 100 mg In 100 ml @ 100 mls/hr IVPB Q12HR MARIO Rx#:[id number] Piperacillin/All 4.5G/Ns 100Ml 100 4.5 gm In 100 ml @ 200 mls/hr IVPB ONCE STA Rx#:[id number] Patient Weight 07/24/24 23:59 Weight 75.2 kg
[2024-07-24 15:57] LABS: Glucose Point of Care 109 mg/dl (65-105)
[2024-07-24] MEDS: PIPERACILLN/TAZ 3.375GM/NS50ML 3.375 GM/50 ML BAG IVPB (19:17)
[2024-07-24] MEDS: DEXTROSE 5%/0.45% SOD CHL 1,000 ML 100 ML IV CONT (19:18)
[2024-07-25] VITALS (19 sets, daily range): BP systolic 117–142; BP diastolic 54–118; PULSE 55–77; RESP 20–24; TEMP 35.2–37.2; O2SAT 92–97
[2024-07-25] MEDS: PIPERACILLN/TAZ 3.375GM/NS50ML 3.375 GM/50 ML BAG IVPB ×4 (00:30→17:43)
[2024-07-25 05:13] LABS: Basophils Percent Auto 0.3 % (0.2-1.2); Eosinophils Absolute Auto 0.1 K/mm3 (0-0.3); Eosinophils Percent Auto 1.1 % (0-4.4); Hematocrit 38.5 % (37.0-47.0); Hemoglobin 11.3 g/dL (12.0-15.0); Immature Granulocyte Absolute 0.03 K/mm3 (0.00-0.031); Immature Granulocyte Percent A 0.5 % (0-0.5); Immature Platelet Fraction Pct 6.2 % (0.9-11.2); Lymphocytes Absolute Auto 0.48 K/mm3 (0.9-3.2); Lymphocytes Percent Auto 7.3 % (18.3-44.2); Mean Corpuscular HGB Conc 29.4 g/dl (32-36); Mean Corpuscular Hemoglobin 31.2 pg (26-34); Mean Corpuscular Volume 106.4 fl (80-100); Mean Platelet Volume 12.2 fl (7.4-10.4); Monocytes Absolute Auto 0.9 K/mm3 (0.1-0.6); Monocytes Percent Auto 13.7 % (2.6-8.5); Neutrophils Absolute Auto 5.1 K/mm3 (1.3-6.7); Neutrophils Percent Auto 77.1 % (45.5-73.1); Nucleated Red Blood Cells Perc 1.5 % (0.0-0.2); Red Blood Count 3.62 M/mm3 (4.2-5.4); Red Cell Distribution Width 17.6 % (11.5-14.5); White Blood Count 6.6 K/mm3 (4.5-10.0)
[2024-07-25 05:29] LABS: Alanine Aminotransferase 25 U/L (6-35); Albumin Level 2.8 g/dL (3.5-5.1); Alkaline Phosphatase 66 U/L (38-126); Anion Gap 9 mmol/L (4-12); Aspartate Amino Transferase 35 U/L (14-36); Bilirubin,Total 1.8 mg/dL (0.2-1.3); Blood Urea Nitrogen 38 mg/dL (7-17); Calcium 8.2 mg/dL (8.4-10.2); Carbon Dioxide 18 mmol/L (22-30); Chloride 117 mmol/L (98-107); Estimated CRCL calculation 32 ml/min; Estimated Glomerular Filt Rate 47; Glucose 105 mg/dL (65-110); Magnesium 2.3 mg/dL (1.6-2.3); Potassium 4.1 mmol/L (3.4-5.0); Sodium 144 mmol/L (137-145)
[2024-07-25 05:35] LABS: Platelet Count Result 80 k/mm3 (150-375); Procalcitonin 0.1 ng/mL
[2024-07-25 05:36] LABS: Anisocytosis 1+; Burr Cells 2+; Platelet Estimate Decreased (Adequate); Poikilocytosis 1+; Schistocytes None Seen
[2024-07-25] MEDS: DEXTROSE 5%/0.45% SOD CHL 1,000 ML 100 ML IV CONT ×2 (06:30→17:44)
--- NOTE | 2024-07-25 06:36 | PC.NURSE ---
0330: RN called to patient's room to assess catheter after patient pulled it. RN deflated balloon, checked placement and reinflated balloon. New hematuria noted. Care continues.
[2024-07-25] MEDS: DOXYCYCLINE 100 MG/NS 100 ML 100 MG/100 ML BAG IVPB ×2 (08:32→23:03)
[2024-07-25] MEDS: PANTOPRAZOLE SODIUM IV 40 MG VIAL IV PUSH (08:35)
[2024-07-25 11:25] LABS: Glucose Point of Care 112 mg/dl (65-105)
[2024-07-25 11:53] LABS: MRSA (PCR) NOT DETECTED (NOT DETECTE)
--- NOTE | 2024-07-25 11:53 | PCDIET ---
TUBE FEEDING NOTE: Enteral nutrition administration due to patient not alert enough to eat. NG was placed this morning. Recommend Jevity 1.5 @ goal rate 50 ml/h to provide 1650 kcal, 70 g protein, 836 ml free water. Flush 150 ml water q 4 hours for total water 1736 ml/day. Start at 20 ml/h and advance TF 10 ml q 4 hours as tolerated until goal is reached. Meets needs 20 kcal/kg, 0.85 g protein/kg, ~89% EER. Continue to monitor and follow up T/F per policy.
--- NOTE | 2024-07-25 13:33 | PCPTNOTE ---
attempted PT eval, currently getting cleaned up by nursing staff, per RN pt has not been following commands or oriented, will follow
--- NOTE | 2024-07-25 14:12 | PCPTNOTE ---
attempted PT eval, pt not alert and cannot keep eyes open when asked, per RN pt has not been alert or responding to commands all day, will follow as pt is appropriate
--- NOTE | 2024-07-25 14:27 | PCOTNOTE ---
Received OT evaluation orders however pt is currently not alert enough to participate safely in an OT evaluation. Even with sternal rubs, pt barely opening her eyes and not able to verbalize anything at this time. Will continue to follow.
--- NOTE | 2024-07-25 14:37 | PM.IMPN ---
Progress Note: A&P Assessment and Plan (1) Hypertensive heart disease with heart failure: Code(s): I11.0 - Hypertensive heart disease with heart failure Status: Acute (2) Chronic diastolic CHF (congestive heart failure): Code(s): I50.32 - Chronic diastolic (congestive) heart failure Status: Chronic (3) Acute exacerbation of CHF (congestive heart failure): Qualifiers: Heart failure type: combined systolic and diastolic Qualified Code(s): I50.43 - Acute on chronic combined systolic (congestive) and diastolic (congestive) heart failure Code(s): I50.9 - Heart failure, unspecified Status: Acute (4) Afib: Qualifiers: Atrial fibrillation type: unspecified chronic Qualified Code(s): I48.20 - Chronic atrial fibrillation, unspecified Code(s): I48.91 - Unspecified atrial fibrillation Status: Chronic (5) Atrial fibrillation with slow ventricular response: Code(s): I48.91 - Unspecified atrial fibrillation Status: Acute (6) Sepsis: Code(s): A41.9 - Sepsis, unspecified organism Status: Acute Plan (1) Hypothermia Code(s): T68.XXXA - Hypothermia, initial encounter Status: Acute Assessment and Plan: -Initial temperature 31.2 degrees Celsius resolved s/p kenzie reer (2) Sepsis: Code(s): A41.9 - Sepsis, unspecified organism Status: Acute Assessment and Plan: From pneumonia improving continue Zosyn and Doxycycline Monitor cultures Altered mental status: Code(s): R41.82 - Altered mental status, unspecified Status: Acute Assessment and Plan: -Suspected to be due to sepsis/hypothermia and hypothermia -Patient localizes to pain, not answering questions at time of my exam (4) Atrial fibrillation with slow ventricular response: Code(s): I48.91 - Unspecified atrial fibrillation Status: Acute Assessment and Plan: -Known history of slow afib due to metoprolol and donepezil -Hold metoprolol today (5) Multifocal pneumonia: Code(s): J18.9 - Pneumonia, unspecified organism Status: Acute Assessment and Plan: -CXR with multifocal infiltrates and patient septic with hypothermia, depressed WBC, altered LOC, tachypnea, new oxygen requirement. -MRSA PCR ordered -Vancomycin, cefepime, Flagyl for now -Send urine Legionella and pneumococcal antigens (6) Stage 3a chronic kidney disease (CKD): Code(s): N18.31 - Chronic kidney disease, stage 3a Status: Chronic Assessment and Plan: -Watch renal function with receiving vancomycin, Zosyn in ER and IV contrast for CTA chest with abd/pelvis follow through -s/p 2 liter bolus and IV fluids at 100 mL/hr (7) Chronic diastolic congestive heart failure: Code(s): I50.32 - Chronic diastolic (congestive) heart failure Status: Acute Assessment and Plan: -New oxygen demand as patient on nasal cannula when I was previously informed she was on room air -CTA shows no pulmonary embolism, right upper lobe pneumonia and right middle lobe pneumonia small pleural effusion - ECHO EF 55-60%, -Altered mental status with severe hypothermia, depressed WBC of 3.7 and findings of multifocal pneumonia on CXR s/p IVF Continue antibiotics and monitor cultures Multifocal pneumonia CTA chest abdomen pelvis shows multifocal pneumonia involving right upper and middle lobe and small pleural effusions continue Zosyn and Doxycycline monitor Bicytopenia Plts 80, Hb 11.3 Possible due to severe sepsis monitor Acute respiratory failure with hypoxemia ABG showed hypoxemia Start O2 therapy keep pulse ox above 94 Dehydration, hypernatremia, resolved Na 144 Protein energy malnutrition Patient unable to eat due to AMS NG tube and tube feeding started discussed with patient daughter who is her POA DVT prophylaxis on Sq Lovenox Subjective Date/time seen: 07/25/24 14:37 Interval history: mostly non responsive Discussed with daughter who is POA who noted that patient has dementia but usually alert and oriented to self and able to feed self Review of Systems Review of Systems: ROS unobtainable: Yes unobtainable due to medical condition and unobtainable due to mental status Exam Narrative: GENERAL: Ill-appearing, confused, no obvious distress, on Kenzie Hugger HEAD: Normocephalic, atraumatic. Pupils 3 mm not sufficiently reactive to light ENT:? Mucous membranes tacky. CHEST: Diminished bilaterally HEART: Regular rate and irregularly irregular rhythm. ?Pedal pulses dopplered ABDOMEN: Soft, bowel sounds present, generalized tenderness noted throughout all quadrants EXTREMITIES: Bilateral lower extremity edema worse on the right with significant bruising on the right and slight bruising near the left knee. Pedal pulses dopplered. 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 NEURO: Arousable, not oriented x3, moving all extremities PSYCH: Somnolent Objective Data Vital Signs Vital Signs: Vital Signs - 24 hr 07/24/24 15:59 07/24/24 16:00 07/24/24 17:33 Temperature 97.6 F Pulse Rate 60 59 L 47 L Respiratory Rate 20 Blood Pressure 104/54 L Pulse Oximetry 100 Oxygen Delivery 07/24/24 19:25 07/24/24 20:00 07/24/24 20:27 Temperature 98.0 F Pulse Rate 56 L 62 Respiratory Rate 20 Blood Pressure 123/47 L Pulse Oximetry 93 Oxygen Delivery Room Air 07/24/24 22:00 07/24/24 23:35 07/25/24 00:00 Temperature 97.2 F L Pulse Rate 65 66 Respiratory Rate 18 Blood Pressure 136/52 L Pulse Oximetry 96 Oxygen Delivery Room Air 07/25/24 00:00 07/25/24 02:00 07/25/24 03:45 Temperature 97.2 F L Pulse Rate 58 L 60 56 L Respiratory Rate 20 Blood Pressure 117/67 Pulse Oximetry 94 Oxygen Delivery 07/25/24 04:00 07/25/24 04:00 07/25/24 06:00 Temperature Pulse Rate 60 59 L Respiratory Rate Blood Pressure Pulse Oximetry Oxygen Delivery Room Air 07/25/24 08:11 07/25/24 08:54 07/25/24 11:52 Temperature 98.9 F 98.0 F Pulse Rate 63 77 Respiratory Rate 22 H 24 H Blood Pressure 142/118 H 135/64 125/54 L Pulse Oximetry 96 95 Oxygen Delivery Intake/Output Intake/Output: Intake & Output 07/22/24 07/23/24 07/24/24 07/25/24 23:59 23:59 23:59 23:59 Intake Total 3400 1250 Output Total 150 300 Balance 3250 950 Meds/Results Medications: Active Medications Generic Name Dose Route Start Last Admin Trade Name Freq PRN Reason Stop Dose Admin Acetaminophen 650 mg 07/24/24 06:29 Acetaminophen 325 Mg Tablet PO Q6H PRN fever or pain Ferrous Sulfate 325 mg 07/24/24 09:00 07/25/24 08:37 Ferrous Sulfate [address] PO Not Given DAILY MARIO Furosemide 40 mg 07/24/24 06:20 07/24/24 06:54 Furosemide Inj 40 Mg/4 Ml Vial IV PUSH Not Given BID MARIO Dextrose/Sodium Chloride 1,000 mls @ 100 mls/hr 07/24/24 09:25 07/25/24 06:30 Dextrose 5% Sodium Chloride 0.45% IV CONT 100 mls/hr .Q10H MARIO Administration Doxycycline Hyclate 100 mg in 100 mls @ 100 mls/hr 07/24/24 10:35 07/25/24 09:32 Vibramycin 100 Mg/Ns 100 Ml IVPB Infused Q12HR MARIO Infusion Piperacillin/Tazobactam/Dextrose 3.375 gm in 50 mls @ 100 mls/hr 07/24/24 18:00 07/25/24 12:27 Zosyn 3.375 Gm/Ns 50 Ml IVPB Infused Q6H MARIO Infusion Pantoprazole Sodium 40 mg 07/24/24 09:00 07/25/24 08:35 Pantoprazole Sodium Iv 40 Mg Vial IV PUSH 40 mg QAM MARIO Administration Perflutren Lipid Microsphere 0 ml 07/24/24 06:19 Perflutren Lipid Microspheres 1.5 Ml Vial Diluted To 10 Ml Total Volume IV PUSH 07/27/24 06:20 ONCE PRN adequate visualization Protocol Polyethylene Glycol 17 gm 07/24/24 09:00 07/25/24 08:37 Polyethylene Glycol 3350 17 Gm Powd.Pack PO Not Given QAM MARIO Potassium Chloride 20 meq 07/24/24 09:00 07/25/24 08:37 Potassium Chloride 20 Meq Packet (For Liquid) PO Not Given DAILY MARIO Radiology Results: ITS Impressions Head CT 07/24/24 05:45 Impression: No intracranial hemorrhage, mass, or acute infarct. 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 Atrophy and chronic white matter changes, as above. Chest X-Ray 07/24/24 06:04 Impression: Bibasilar left perihilar pulmonary edema versus bilateral pneumonia. Correlate clinically. Minimal left pleural effusion. Stable cardiomegaly. Chest/Abdomen/Pelvis CTA 07/24/24 14:37 IMPRESSION: 1. No pulmonary embolus. Sensitivity is moderately decreased by motion artifact. 2. Pneumonia in right upper lobe and right middle lobe. 3. Small pleural effusions. Abdomen X-Ray 07/25/24 11:12 IMPRESSION: 1. Nasogastric tube tip in the stomach. 2. Bilateral lung disease, consistent with pneumonia. 3. Small pleural effusions. 4. Cardiomegaly. Labs Labs: Laboratory Results - last 24 hr 07/24/24 07/25/24 07/25/24 15:40 04:59 10:25 WBC 6.6 RBC 3.62 L Hgb 11.3 L Hct 38.5 MCV 106.4 H D MCH 31.2 MCHC 29.4 L RDW 17.6 H Plt Count 80 L MPV 12.2 H Immature Gran % (Auto) 0.5 Neut % (Auto) 77.1 H Lymph % (Auto) 7.3 L [place] % (Auto) 13.7 H Eos % (Auto) 1.1 Baso % (Auto) 0.3 Lymph # (Auto) 0.48 L [place] # (Auto) 0.9 H Eos # (Auto) 0.1 Baso # (Auto) 0.0 Abs Immat Gran (auto) 0.03 Absolute Neuts (auto) 5.1 Absolute Nucleated RBC 0.100 H Nucleated RBC % 1.5 H Platelet Estimate Decreased % Immature Plt Fraction 6.2 Poikilocytosis 1+ Anisocytosis 1+ [place] Cells 2+ Schistocytes None seen Sodium 144 Potassium 4.1 Chloride 117 H Carbon Dioxide 18 L Anion Gap 9 BUN 38 H Creatinine 1.10 H Estim Creat Clear Calc 32 Estimated GFR 47 L Glucose 105 POC Capillary Glucose 109 H Calcium 8.2 L Magnesium 2.3 Total Bilirubin 1.8 H AST 35 ALT 25 Alkaline Phosphatase 66 Total Protein 6.0 L Albumin 2.8 L Procalcitonin 0.1 Nasal MRSA (PCR) Not detected 07/25/24 11:06 WBC RBC Hgb Hct MCV MCH MCHC RDW Plt Count MPV Immature Gran % (Auto) Neut % (Auto) Lymph % (Auto) [place] % (Auto) Eos % (Auto) Baso % (Auto) Lymph # (Auto) [place] # (Auto) Eos # (Auto) Baso # (Auto) Abs Immat Gran (auto) Absolute Neuts (auto) Absolute Nucleated RBC Nucleated RBC % Platelet Estimate % Immature Plt Fraction Poikilocytosis Anisocytosis [place] Cells Schistocytes Sodium Potassium Chloride Carbon Dioxide Anion Gap BUN Creatinine Estim Creat Clear Calc Estimated GFR Glucose POC Capillary Glucose 112 H Calcium Magnesium Total Bilirubin AST ALT Alkaline Phosphatase Total Protein Albumin Procalcitonin Nasal MRSA (PCR) Quality VTE Prophylaxis VTE prophylaxis: mechanical ordered
[2024-07-25 16:39] LABS: Glucose Point of Care 142 mg/dl (65-105)
[2024-07-25 16:46] LABS: Folic Acid 15.3 ng/mL (2.76->20)
[2024-07-26] VITALS (22 sets, daily range): BP systolic 100–145; BP diastolic 49–87; PULSE 42–68; RESP 20–22; TEMP 35–36.9; O2SAT 93–100
[2024-07-26] MEDS: PIPERACILLN/TAZ 3.375GM/NS50ML 3.375 GM/50 ML BAG IVPB ×5 (00:35→23:18)
[2024-07-26 04:44] LABS: Basophils Percent Auto 0.4 % (0.2-1.2); Eosinophils Absolute Auto 0.1 K/mm3 (0-0.3); Eosinophils Percent Auto 1.3 % (0-4.4); Hematocrit 37.3 % (37.0-47.0); Hemoglobin 11.4 g/dL (12.0-15.0); Immature Granulocyte Absolute 0.03 K/mm3 (0.00-0.031); Immature Granulocyte Percent A 0.4 % (0-0.5); Immature Platelet Fraction Pct 7.8 % (0.9-11.2); Lymphocytes Absolute Auto 0.56 K/mm3 (0.9-3.2); Lymphocytes Percent Auto 7.3 % (18.3-44.2); Mean Corpuscular HGB Conc 30.6 g/dl (32-36); Mean Corpuscular Hemoglobin 30.6 pg (26-34); Mean Corpuscular Volume 100.3 fl (80-100); Monocytes Percent Auto 13.3 % (2.6-8.5); Neutrophils Percent Auto 77.3 % (45.5-73.1); Nucleated Red Blood Cells Perc 0.9 % (0.0-0.2); Platelet Count Result 83 k/mm3 (150-375); Red Blood Count 3.72 M/mm3 (4.2-5.4); Red Cell Distribution Width 17.4 % (11.5-14.5); White Blood Count 7.7 K/mm3 (4.5-10.0)
[2024-07-26 04:50] LABS: Lactic Acid Reflex 1.6 mmol/L (0.7-2.0)
[2024-07-26 04:51] LABS: Alanine Aminotransferase 24 U/L (6-35); Albumin Level 2.9 g/dL (3.5-5.1); Alkaline Phosphatase 64 U/L (38-126); Anion Gap 8 mmol/L (4-12); Aspartate Amino Transferase 33 U/L (14-36); Bilirubin,Total 2.1 mg/dL (0.2-1.3); Blood Urea Nitrogen 35 mg/dL (7-17); Calcium 8.7 mg/dL (8.4-10.2); Carbon Dioxide 20 mmol/L (22-30); Chloride 117 mmol/L (98-107); Estimated CRCL calculation 37 ml/min; Estimated Glomerular Filt Rate 55; Glucose 117 mg/dL (65-110); Magnesium 2.2 mg/dL (1.6-2.3); Potassium 3.6 mmol/L (3.4-5.0); Sodium 145 mmol/L (137-145)
[2024-07-26] MEDS: DEXTROSE 5%/0.45% SOD CHL 1,000 ML 100 ML IV CONT ×2 (05:07→18:05)
[2024-07-26 05:15] LABS: Procalcitonin 0.1 ng/mL
[2024-07-26 05:22] LABS: Burr Cells 1+; Platelet Estimate Decreased (Adequate); Schistocytes Rare
[2024-07-26 05:23] LABS: Anisocytosis 1+
[2024-07-26] MEDS: FERROUS SULFATE 325 MG TABLET DR PO (10:07)
[2024-07-26] MEDS: ENOXAPARIN 40 MG/0.4 ML SYRINGE SUB-Q (10:07)
[2024-07-26] MEDS: PANTOPRAZOLE SODIUM IV 40 MG VIAL IV PUSH (10:07)
[2024-07-26] MEDS: polyethylene glycoL 3350 17 GM POWD.PACK PO (10:07)
[2024-07-26] MEDS: DOXYCYCLINE 100 MG/NS 100 ML 100 MG/100 ML BAG IVPB ×2 (10:07→20:27)
[2024-07-26] MEDS: POTASSIUM CHLORIDE 20 MEQ PACKET (FOR LIQUID) PO (10:08)
--- NOTE | 2024-07-26 10:32 | PCPTNOTE ---
HOLD PT evaluation this AM--discussed pt with KRISTINA Alford--pt is agitated and confused. And has not been cooperative with nursing care today.
[2024-07-26 11:17] LABS: Glucose Point of Care 122 mg/dl (65-105)
[2024-07-26 11:36] LABS: Lactic Acid Reflex 1.9 mmol/L (0.7-2.0)
[2024-07-26 12:14] LABS: Alveolar/Arterial O2 Gradient 77.1 mmHg; Base Excess ABG -3.9 mEq/l (+/-2.0); Fractional Inspired Oxygen 28 %; HCO3 ABG 20.6 mEq/l (22.0-26.0); Oxygen Saturation ABG 95.8 % (95.0-100.0); Oxyhemoglobin 94.4 % THb (90.0-100.0); PCO2 ABG 35.7 mmHg (35.0-45.0); PO2 ABG 80.4 mmHg (80.0-100.0); PO2 FiO2 Ratio Arterial Blood 2.87 %
[2024-07-26 12:15] LABS: Device NASAL CANNULA; Site Drawn RIGHT RADIAL
--- NOTE | 2024-07-26 12:18 | PCRCNOTE ---
ABG'S delayed due to pt being a hard stick .
--- NOTE | 2024-07-26 16:47 | P.PNIM_ITS ---
Progress Note: A&P Assessment and Plan (1) Hypertensive heart disease with heart failure: Code(s): I11.0 - Hypertensive heart disease with heart failure Status: Acute (2) Chronic diastolic CHF (congestive heart failure): Code(s): I50.32 - Chronic diastolic (congestive) heart failure Status: Chronic (3) Acute exacerbation of CHF (congestive heart failure): Qualifiers: Heart failure type: combined systolic and diastolic Qualified Code(s): I50.43 - Acute on chronic combined systolic (congestive) and diastolic (congestive) heart failure Code(s): I50.9 - Heart failure, unspecified Status: Acute (4) Afib: Qualifiers: Atrial fibrillation type: unspecified chronic Qualified Code(s): I48.20 - Chronic atrial fibrillation, unspecified Code(s): I48.91 - Unspecified atrial fibrillation Status: Chronic (5) Atrial fibrillation with slow ventricular response: Code(s): I48.91 - Unspecified atrial fibrillation Status: Acute (6) Sepsis: Code(s): A41.9 - Sepsis, unspecified organism Status: Acute Plan (1) Hypothermia Code(s): T68.XXXA - Hypothermia, initial encounter Status: Acute Assessment and Plan: -Initial temperature 31.2 degrees Celsius continue kenzie hugger (2) Sepsis: Code(s): A41.9 - Sepsis, unspecified organism Status: Acute Assessment and Plan: From pneumonia improving continue Zosyn and Doxycycline Monitor cultures Altered mental status: Code(s): R41.82 - Altered mental status, unspecified Status: Acute Assessment and Plan: -Suspected to be due to sepsis/hypothermia and hypothermia -Patient localizes to pain, not answering questions at time of my exam (4) Atrial fibrillation with slow ventricular response: Code(s): I48.91 - Unspecified atrial fibrillation Status: Acute Assessment and Plan: -Known history of slow afib due to metoprolol and donepezil -Hold metoprolol today (5) Multifocal pneumonia: Code(s): J18.9 - Pneumonia, unspecified organism Status: Acute Assessment and Plan: -CXR with multifocal infiltrates and patient septic with hypothermia, depressed WBC, altered LOC, tachypnea, new oxygen requirement. -MRSA PCR ordered On Zosyn and Doxycycline mRSA pending monitor cultures (6) Stage 3a chronic kidney disease (CKD): Code(s): N18.31 - Chronic kidney disease, stage 3a Status: Chronic Assessment and Plan: -Watch renal function with receiving vancomycin, Zosyn in ER and IV contrast for CTA chest with abd/pelvis follow through -s/p 2 liter bolus and IV fluids at 100 mL/hr (7) Chronic diastolic congestive heart failure: Code(s): I50.32 - Chronic diastolic (congestive) heart failure Status: Acute Assessment and Plan: -New oxygen demand as patient on nasal cannula when I was previously informed she was on room air -CTA shows no pulmonary embolism, right upper lobe pneumonia and right middle lobe pneumonia small pleural effusion - ECHO EF 55-60%, -Altered mental status with severe hypothermia, depressed WBC of 3.7 and findings of multifocal pneumonia on CXR s/p IVF Continue antibiotics and monitor cultures CT head unremarkable Multifocal pneumonia CTA chest abdomen pelvis shows multifocal pneumonia involving right upper and middle lobe and small pleural effusions continue Zosyn and Doxycycline MRSA pending, monitor cultures monitor Bycytopenia Plts 83, Hb 11.4 Possible due to severe sepsis monitor Acute respiratory failure with hypoxemia ABG showed hypoxemia Start O2 therapy keep pulse ox above 94 Dehydration, hypernatremia, resolved Na 144 Protein energy malnutrition Patient unable to eat due to AMS NG tube and tube feeding started Hypothermia and Bradycardia likely from sepsis TSH wnl contieu above care discussed with patient daughter who is her POA, will revisit discussion in 2 days if patient does not improving DVT prophylaxis on Sq Lovenox Subjective Date/time seen: 07/26/24 16:47 Interval history: still non responsive Discussed with daughter at bedside and we agreed in the next couple of days if patient does nto improved we will consider comfort care Review of Systems Review of Systems: ROS unobtainable: Yes unobtainable due to medical condition and unobtainable due to mental status Exam Narrative: GENERAL: non responsive HEAD: Normocephalic, atraumatic. Pupils 3 mm not sufficiently reactive to light ENT:? Mucous membranes tacky. CHEST: Diminished bilaterally HEART: Regular rate and irregularly irregular rhythm. ?Pedal pulses dopplered ABDOMEN: Soft, bowel sounds present, generalized tenderness noted throughout all quadrants EXTREMITIES: Bilateral lower extremity edema worse on the right with significant bruising on the right and slight bruising near the left knee. Pedal pulses dopplered. 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 NEURO: non responsive PSYCH: Somnolent Objective Data Vital Signs Vital Signs: Vital Signs - 24 hr 07/25/24 16:48 07/25/24 18:00 07/25/24 20:00 Temperature 95.4 F L Pulse Rate 58 L 60 57 L Respiratory Rate 20 Blood Pressure 124/69 Pulse Oximetry 97 Oxygen Delivery Oxygen Flow Rate 07/25/24 20:49 07/25/24 21:00 07/25/24 22:00 Temperature 97.4 F L Pulse Rate 56 L 56 L 56 L Respiratory Rate 20 20 Blood Pressure 137/70 Pulse Oximetry 95 95 Oxygen Delivery Nasal Cannula Oxygen Flow Rate 2 07/26/24 00:00 07/26/24 00:15 07/26/24 00:26 Temperature 97.6 F Pulse Rate 64 58 L 58 L Respiratory Rate 20 20 Blood Pressure 144/67 H Pulse Oximetry 93 93 Oxygen Delivery Nasal Cannula Oxygen Flow Rate 2 07/26/24 02:00 07/26/24 04:00 07/26/24 04:00 Temperature Pulse Rate 59 L 65 50 L Respiratory Rate 20 Blood Pressure Pulse Oximetry 95 Oxygen Delivery Nasal Cannula Oxygen Flow Rate 2 07/26/24 04:36 07/26/24 06:00 07/26/24 08:00 Temperature 97.5 F L Pulse Rate 65 55 L Respiratory Rate 20 Blood Pressure 145/66 H Pulse Oximetry 95 96 Oxygen Delivery Nasal Cannula Oxygen Flow Rate 2 07/26/24 08:00 07/26/24 08:23 07/26/24 10:00 Temperature 96.5 F L Pulse Rate 55 L 47 L 42 L Respiratory Rate 22 H Blood Pressure 100/69 Pulse Oximetry 96 Oxygen Delivery Oxygen Flow Rate 07/26/24 12:00 07/26/24 12:00 07/26/24 12:03 Temperature 95.0 F L Pulse Rate 60 63 Respiratory Rate 22 H Blood Pressure 122/60 Pulse Oximetry 95 100 Oxygen Delivery Nasal Cannula Oxygen Flow Rate 2 07/26/24 12:19 07/26/24 14:00 07/26/24 16:31 Temperature 97.6 F Pulse Rate 59 L 66 Respiratory Rate 20 Blood Pressure 106/68 Pulse Oximetry 96 97 Oxygen Delivery Nasal Cannula Oxygen Flow Rate 2 Intake/Output Intake/Output: Intake & Output 07/23/24 07/24/24 07/25/24 07/26/24 23:59 23:59 23:59 23:59 Intake Total 3400 4453 8918 Output Total 150 530 275 Balance 3250 1920 1473 Meds/Results Medications: Active Medications Generic Name Dose Route Start Last Admin Trade Name Freq PRN Reason Stop Dose Admin Acetaminophen 650 mg 07/24/24 06:29 Acetaminophen 325 Mg Tablet PO Q6H PRN fever or pain Enoxaparin Sodium 40 mg 07/26/24 09:00 07/26/24 10:07 Enoxaparin 40 Mg/0.4 Ml Syringe SUB-Q 40 mg DAILY MARIO Administration Ferrous Sulfate 325 mg 07/24/24 09:00 07/26/24 10:07 Ferrous Sulfate [address] PO 325 mg DAILY MARIO Administration Furosemide 40 mg 07/24/24 06:20 07/24/24 06:54 Furosemide Inj 40 Mg/4 Ml Vial IV PUSH Not Given BID MARIO Dextrose/Sodium Chloride 1,000 mls @ 100 mls/hr 07/24/24 09:25 07/26/24 12:04 Dextrose 5% Sodium Chloride 0.45% IV CONT Not Given .Q10H MARIO Doxycycline Hyclate 100 mg in 100 mls @ 100 mls/hr 07/24/24 10:35 07/26/24 11:07 Vibramycin 100 Mg/Ns 100 Ml IVPB Infused Q12HR MARIO Infusion Piperacillin/Tazobactam/Dextrose 3.375 gm in 50 mls @ 100 mls/hr 07/24/24 18:00 07/26/24 13:09 Zosyn 3.375 Gm/Ns 50 Ml IVPB Infused Q6H MARIO Infusion Pantoprazole Sodium 40 mg 07/24/24 09:00 07/26/24 10:07 Pantoprazole Sodium Iv 40 Mg Vial IV PUSH 40 mg QAM MARIO Administration Perflutren Lipid Microsphere 0 ml 07/24/24 06:19 Perflutren Lipid Microspheres 1.5 Ml Vial Diluted To 10 Ml Total Volume IV PUSH 07/27/24 06:20 ONCE PRN adequate visualization Protocol Polyethylene Glycol 17 gm 07/24/24 09:00 07/26/24 10:07 Polyethylene Glycol 3350 17 Gm Powd.Pack PO 17 gm QAM MARIO Administration Potassium Chloride 20 meq 07/24/24 09:00 07/26/24 10:08 Potassium Chloride 20 Meq Packet (For Liquid) PO 20 meq DAILY MARIO Administration Radiology Results: ITS Impressions Head CT 07/24/24 05:45 Impression: No intracranial hemorrhage, mass, or acute infarct. 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 Atrophy and chronic white matter changes, as above. Chest X-Ray 07/24/24 06:04 Impression: Bibasilar left perihilar pulmonary edema versus bilateral pneumonia. Correlate clinically. Minimal left pleural effusion. Stable cardiomegaly. Chest/Abdomen/Pelvis CTA 07/24/24 14:37 IMPRESSION: 1. No pulmonary embolus. Sensitivity is moderately decreased by motion artifact. 2. Pneumonia in right upper lobe and right middle lobe. 3. Small pleural effusions. Abdomen X-Ray 07/25/24 11:12 IMPRESSION: 1. Nasogastric tube tip in the stomach. 2. Bilateral lung disease, consistent with pneumonia. 3. Small pleural effusions. 4. Cardiomegaly. Labs Labs: Laboratory Results - last 24 hr 07/26/24 07/26/24 07/26/24 04:33 04:34 10:58 WBC 7.7 RBC 3.72 L Hgb 11.4 L Hct 37.3 MCV 100.3 H D MCH 30.6 MCHC 30.6 L RDW 17.4 H Plt Count 83 L MPV 12.0 H Immature Gran % (Auto) 0.4 Neut % (Auto) 77.3 H Lymph % (Auto) 7.3 L [place] % (Auto) 13.3 H Eos % (Auto) 1.3 Baso % (Auto) 0.4 Lymph # (Auto) 0.56 L [place] # (Auto) 1.0 H Eos # (Auto) 0.1 Baso # (Auto) 0.0 Abs Immat Gran (auto) 0.03 Absolute Neuts (auto) 6.0 Absolute Nucleated RBC 0.070 H Nucleated RBC % 0.9 H Platelet Estimate Decreased % Immature Plt Fraction 7.8 Anisocytosis 1+ [place] Cells 1+ Schistocytes Rare Puncture Site ABG pH ABG pCO2 ABG pO2 ABG PO2/FiO2 Ratio ABG HCO3 ABG O2 Saturation ABG O2 Content ABG Base Excess A-a Gradient Oxyhemoglobin Total Hemoglobin O2 Delivery Device O2 Liters/Min FiO2 Sodium 145 Potassium 3.6 Chloride 117 H Carbon Dioxide 20 L Anion Gap 8 BUN 35 H Creatinine 0.96 Estim Creat Clear Calc 37 Estimated GFR 55 L Glucose 117 H POC Capillary Glucose 122 H Lactic Acid 1.6 Calcium 8.7 Magnesium 2.2 Total Bilirubin 2.1 H AST 33 ALT 24 Alkaline Phosphatase 64 Total Protein 6.0 L Albumin 2.9 L Procalcitonin 0.1 07/26/24 07/26/24 11:21 12:09 WBC RBC Hgb Hct MCV MCH MCHC RDW Plt Count MPV Immature Gran % (Auto) Neut % (Auto) Lymph % (Auto) [place] % (Auto) Eos % (Auto) Baso % (Auto) Lymph # (Auto) [place] # (Auto) Eos # (Auto) Baso # (Auto) Abs Immat Gran (auto) Absolute Neuts (auto) Absolute Nucleated RBC Nucleated RBC % Platelet Estimate % Immature Plt Fraction Anisocytosis [place] Cells Schistocytes Puncture Site Right radial ABG pH 7.380 ABG pCO2 35.7 ABG pO2 80.4 ABG PO2/FiO2 Ratio 2.87 ABG HCO3 20.6 L ABG O2 Saturation 95.8 ABG O2 Content 16.0 ABG Base Excess -3.9 A-a Gradient 77.1 Oxyhemoglobin 94.4 Total Hemoglobin 12.0 O2 Delivery Device Nasal cannula O2 Liters/Min 2.0 FiO2 28 Sodium Potassium Chloride Carbon Dioxide Anion Gap BUN Creatinine Estim Creat Clear Calc Estimated GFR Glucose POC Capillary Glucose Lactic Acid 1.9 Calcium Magnesium Total Bilirubin AST ALT Alkaline Phosphatase Total Protein Albumin Procalcitonin Quality VTE Prophylaxis VTE prophylaxis: mechanical ordered
[2024-07-26 19:05] LABS: Glucose Point of Care 131 mg/dl (65-105)
[2024-07-26 22:34] LABS: MRSA (PCR) NOT DETECTED (NOT DETECTE)
[2024-07-26 23:33] LABS: Glucose Point of Care 166 mg/dl (65-105)
[2024-07-27] VITALS (18 sets, daily range): BP systolic 120–138; BP diastolic 47–83; PULSE 62–85; RESP 16–20; TEMP 35.5–36.4; O2SAT 100
[2024-07-27] MEDS: PIPERACILLN/TAZ 3.375GM/NS50ML 3.375 GM/50 ML BAG IVPB ×4 (05:14→23:04)
[2024-07-27 05:35] LABS: Basophils Percent Auto 0.4 % (0.2-1.2); Eosinophils Absolute Auto 0.2 K/mm3 (0-0.3); Eosinophils Percent Auto 2.7 % (0-4.4); Hematocrit 37.8 % (37.0-47.0); Hemoglobin 11.6 g/dL (12.0-15.0); Immature Granulocyte Absolute 0.04 K/mm3 (0.00-0.031); Immature Granulocyte Percent A 0.5 % (0-0.5); Immature Platelet Fraction Pct 9.3 % (0.9-11.2); Lymphocytes Absolute Auto 0.63 K/mm3 (0.9-3.2); Mean Corpuscular HGB Conc 30.7 g/dl (32-36); Mean Corpuscular Hemoglobin 30.7 pg (26-34); Mean Platelet Volume 12.2 fl (7.4-10.4); Neutrophils Absolute Auto 5.9 K/mm3 (1.3-6.7); Neutrophils Percent Auto 75.4 % (45.5-73.1); Nucleated Red Blood Cells Perc 0.8 % (0.0-0.2); Red Blood Count 3.78 M/mm3 (4.2-5.4); Red Cell Distribution Width 17.7 % (11.5-14.5); White Blood Count 7.8 K/mm3 (4.5-10.0)
[2024-07-27 05:56] LABS: Lactic Acid Reflex 1.5 mmol/L (0.7-2.0); Platelet Count Result 91 k/mm3 (150-375)
[2024-07-27 05:58] LABS: Anisocytosis 1+; Burr Cells 2+; Macrocytosis 1+ (NORMAL); Platelet Estimate Decreased (Adequate); Schistocytes None Seen
[2024-07-27 06:00] LABS: Alanine Aminotransferase 28 U/L (6-35); Alkaline Phosphatase 81 U/L (38-126); Anion Gap 9 mmol/L (4-12); Aspartate Amino Transferase 35 U/L (14-36); Bilirubin,Total 1.7 mg/dL (0.2-1.3); Blood Urea Nitrogen 35 mg/dL (7-17); Calcium 8.9 mg/dL (8.4-10.2); Carbon Dioxide 20 mmol/L (22-30); Chloride 117 mmol/L (98-107); Estimated CRCL calculation 42 ml/min; Estimated Glomerular Filt Rate > 60; Glucose 133 mg/dL (65-110); Magnesium 2.2 mg/dL (1.6-2.3); Potassium 4.1 mmol/L (3.4-5.0); Sodium 146 mmol/L (137-145)
--- NOTE | 2024-07-27 08:52 | PCPTNOTE ---
HOLD PT evaluation: discussed pt with RN Kathleen-- pt is unresponsive. HOLD PT evaluation.
[2024-07-27] MEDS: DOXYCYCLINE 100 MG/NS 100 ML 100 MG/100 ML BAG 50 MG IVPB ×2 (08:58→21:13)
[2024-07-27] MEDS: POTASSIUM CHLORIDE 20 MEQ PACKET (FOR LIQUID) PO (08:59)
[2024-07-27] MEDS: polyethylene glycoL 3350 17 GM POWD.PACK PO (08:59)
[2024-07-27] MEDS: PANTOPRAZOLE SODIUM IV 40 MG VIAL IV PUSH (08:59)
[2024-07-27] MEDS: FERROUS SULFATE 325 MG TABLET DR PO (08:59)
[2024-07-27 12:05] LABS: Glucose Point of Care 129 mg/dl (65-105)
--- NOTE | 2024-07-27 12:48 | P.PNIM_ITS ---
Progress Note: A&P Assessment and Plan (1) Hypertensive heart disease with heart failure: Code(s): I11.0 - Hypertensive heart disease with heart failure Status: Acute (2) Chronic diastolic CHF (congestive heart failure): Code(s): I50.32 - Chronic diastolic (congestive) heart failure Status: Chronic (3) Acute exacerbation of CHF (congestive heart failure): Qualifiers: Heart failure type: combined systolic and diastolic Qualified Code(s): I50.43 - Acute on chronic combined systolic (congestive) and diastolic (congestive) heart failure Code(s): I50.9 - Heart failure, unspecified Status: Acute (4) Afib: Qualifiers: Atrial fibrillation type: unspecified chronic Qualified Code(s): I48.20 - Chronic atrial fibrillation, unspecified Code(s): I48.91 - Unspecified atrial fibrillation Status: Chronic (5) Atrial fibrillation with slow ventricular response: Code(s): I48.91 - Unspecified atrial fibrillation Status: Acute (6) Sepsis: Code(s): A41.9 - Sepsis, unspecified organism Status: Acute Plan (1) Hypothermia Code(s): T68.XXXA - Hypothermia, initial encounter Status: Acute Assessment and Plan: -Initial temperature 31.2 degrees Celsius continue kenzie hugger (2) Sepsis: Code(s): A41.9 - Sepsis, unspecified organism Status: Acute Assessment and Plan: From pneumonia improving continue Zosyn and Doxycycline Monitor cultures Altered mental status: Code(s): R41.82 - Altered mental status, unspecified Status: Acute Assessment and Plan: -Suspected to be due to sepsis/hypothermia and hypothermia -Patient localizes to pain, not answering questions at time of my exam (4) Atrial fibrillation with slow ventricular response: Code(s): I48.91 - Unspecified atrial fibrillation Status: Acute Assessment and Plan: -Known history of slow afib due to metoprolol and donepezil -Hold metoprolol today (5) Multifocal pneumonia: Code(s): J18.9 - Pneumonia, unspecified organism Status: Acute Assessment and Plan: -CXR with multifocal infiltrates and patient septic with hypothermia, depressed WBC, altered LOC, tachypnea, new oxygen requirement. -MRSA PCR ordered On Zosyn and Doxycycline mRSA pending monitor cultures (6) Stage 3a chronic kidney disease (CKD): Code(s): N18.31 - Chronic kidney disease, stage 3a Status: Chronic Assessment and Plan: -Watch renal function with receiving vancomycin, Zosyn in ER and IV contrast for CTA chest with abd/pelvis follow through -s/p 2 liter bolus and IV fluids at 100 mL/hr (7) Chronic diastolic congestive heart failure: Code(s): I50.32 - Chronic diastolic (congestive) heart failure Status: Acute Assessment and Plan: -New oxygen demand as patient on nasal cannula when I was previously informed she was on room air -CTA shows no pulmonary embolism, right upper lobe pneumonia and right middle lobe pneumonia small pleural effusion - ECHO EF 55-60%, -Altered mental status with severe hypothermia, depressed WBC of 3.7 and findings of multifocal pneumonia on CXR s/p IVF Continue antibiotics and monitor cultures CT head unremarkable Multifocal pneumonia CTA chest abdomen pelvis shows multifocal pneumonia involving right upper and middle lobe and small pleural effusions continue Zosyn and Doxycycline MRSA pending, monitor cultures monitor Bycytopenia Plts 91, Hb 11.4 Possible due to severe sepsis monitor Acute respiratory failure with hypoxemia ABG showed hypoxemia Start O2 therapy keep pulse ox above 94 Dehydration, hypernatremia, resolved Na 144 Protein energy malnutrition Patient unable to eat due to AMS NG tube and tube feeding started Hypothermia and Bradycardia likely from sepsis TSH wnl contieu above care discussed with patient daughter who is her POA, daughter noted if condition does not improve tomorrow she will transition to comfort care DVT prophylaxis on Sq Lovenox Subjective Date/time seen: 07/27/24 12:48 Interval history: still non responsive Discussed with daughter at bedside and she agreed if condition does not change tomorrow she will transition to comfort care Review of Systems Review of Systems: ROS unobtainable: Yes unobtainable due to medical condition and unobtainable due to mental status Exam Narrative: GENERAL: non responsive HEAD: Normocephalic, atraumatic. Pupils 3 mm not sufficiently reactive to light ENT:? Mucous membranes tacky. CHEST: Diminished bilaterally HEART: Regular rate and irregularly irregular rhythm. ?Pedal pulses dopplered ABDOMEN: Soft, bowel sounds present, generalized tenderness noted throughout all quadrants EXTREMITIES: Bilateral lower extremity edema worse on the right with significant bruising on the right and slight bruising near the left knee. Pedal pulses dopplered. 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 NEURO: non responsive PSYCH: Somnolent Objective Data Vital Signs Vital Signs: Vital Signs - 24 hr 07/26/24 14:00 07/26/24 16:00 07/26/24 16:00 Temperature Pulse Rate 59 L 66 Respiratory Rate Blood Pressure Pulse Oximetry 97 Oxygen Delivery Nasal Cannula Oxygen Flow Rate 2 Fraction of Inspired Oxygen 07/26/24 16:31 07/26/24 18:00 07/26/24 20:00 Temperature 97.6 F Pulse Rate 66 63 Respiratory Rate 20 Blood Pressure 106/68 Pulse Oximetry 97 100 Oxygen Delivery Nasal Cannula Oxygen Flow Rate 1 Fraction of Inspired Oxygen 07/26/24 20:00 07/26/24 20:18 07/26/24 22:00 Temperature 98.5 F Pulse Rate 59 L 68 58 L Respiratory Rate 20 Blood Pressure 124/49 L Pulse Oximetry 100 Oxygen Delivery Oxygen Flow Rate Fraction of Inspired Oxygen 07/26/24 23:27 07/26/24 23:43 07/27/24 00:00 Temperature 97.6 F Pulse Rate 64 62 Respiratory Rate 20 Blood Pressure 123/87 Pulse Oximetry 100 100 Oxygen Delivery Nasal Cannula Oxygen Flow Rate 1 Fraction of Inspired Oxygen 07/27/24 02:00 07/27/24 03:51 07/27/24 04:00 Temperature Pulse Rate 64 68 Respiratory Rate Blood Pressure Pulse Oximetry 100 Oxygen Delivery Nasal Cannula Oxygen Flow Rate 1 Fraction of Inspired Oxygen 07/27/24 04:00 07/27/24 06:00 07/27/24 07:21 Temperature 97.5 F L 97 F L Pulse Rate 64 63 68 Respiratory Rate 20 16 Blood Pressure 121/47 L 133/61 Pulse Oximetry 100 100 Oxygen Delivery Oxygen Flow Rate Fraction of Inspired Oxygen 07/27/24 08:00 07/27/24 08:00 07/27/24 08:26 Temperature Pulse Rate 68 68 Respiratory Rate 16 Blood Pressure Pulse Oximetry 100 100 Oxygen Delivery Nasal Cannula Nasal Cannula Oxygen Flow Rate 1 1 Fraction of Inspired Oxygen 07/27/24 10:00 07/27/24 11:01 Temperature 96.5 F L Pulse Rate 68 62 Respiratory Rate 20 Blood Pressure 125/49 L Pulse Oximetry 100 Oxygen Delivery Oxygen Flow Rate Fraction of Inspired Oxygen Intake/Output Intake/Output: Intake & Output 07/24/24 07/25/24 07/26/24 07/27/24 23:59 23:59 23:59 23:59 Intake Total 3400 2450 4036 730 Output Total 150 530 475 300 Balance 3250 1920 3561 430 Meds/Results Medications: Active Medications Generic Name Dose Route Start Last Admin Trade Name Freq PRN Reason Stop Dose Admin Acetaminophen 650 mg 07/24/24 06:29 Acetaminophen 325 Mg Tablet PO Q6H PRN fever or pain Enoxaparin Sodium 40 mg 07/26/24 09:00 07/27/24 08:53 Enoxaparin 40 Mg/0.4 Ml Syringe SUB-Q Not Given DAILY MARIO Ferrous Sulfate 325 mg 07/24/24 09:00 07/27/24 08:59 Ferrous Sulfate [address] PO 325 mg DAILY MARIO Administration Furosemide 40 mg 07/24/24 06:20 07/24/24 06:54 Furosemide Inj 40 Mg/4 Ml Vial IV PUSH Not Given BID MARIO Doxycycline Hyclate 100 mg in 100 mls @ 100 mls/hr 07/24/24 10:35 07/27/24 08:58 Vibramycin 100 Mg/Ns 100 Ml IVPB 50 mls/hr Q12HR MARIO Administration Piperacillin/Tazobactam/Dextrose 3.375 gm in 50 mls @ 100 mls/hr 07/24/24 18:00 07/27/24 12:23 Zosyn 3.375 Gm/Ns 50 Ml IVPB 100 mls/hr Q6H MARIO Administration Pantoprazole Sodium 40 mg 07/24/24 09:00 07/27/24 08:59 Pantoprazole Sodium Iv 40 Mg Vial IV PUSH 40 mg QAM MARIO Administration Polyethylene Glycol 17 gm 07/24/24 09:00 07/27/24 08:59 Polyethylene Glycol 3350 17 Gm Powd.Pack PO 17 gm QAM MARIO Administration Potassium Chloride 20 meq 07/24/24 09:00 07/27/24 08:59 Potassium Chloride 20 Meq Packet (For Liquid) PO 20 meq DAILY MARIO Administration Radiology Results: ITS Impressions Head CT 07/24/24 05:45 Impression: No intracranial hemorrhage, mass, or acute infarct. 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 Atrophy and chronic white matter changes, as above. Chest/Abdomen/Pelvis CTA 07/24/24 14:37 IMPRESSION: 1. No pulmonary embolus. Sensitivity is moderately decreased by motion artifact. 2. Pneumonia in right upper lobe and right middle lobe. 3. Small pleural effusions. Abdomen X-Ray 07/25/24 11:12 IMPRESSION: 1. Nasogastric tube tip in the stomach. 2. Bilateral lung disease, consistent with pneumonia. 3. Small pleural effusions. 4. Cardiomegaly. Chest X-Ray 07/27/24 08:42 Impression: Moderate bibasilar and perihilar pulmonary edema pattern, mildly worsened from prior exam, with small pleural effusions. NG tube in place. Labs Labs: Laboratory Results - last 24 hr 07/26/24 07/26/24 07/26/24 17:52 21:10 23:10 WBC RBC Hgb Hct MCV MCH MCHC RDW Plt Count MPV Immature Gran % (Auto) Neut % (Auto) Lymph % (Auto) [place] % (Auto) Eos % (Auto) Baso % (Auto) Lymph # (Auto) [place] # (Auto) Eos # (Auto) Baso # (Auto) Abs Immat Gran (auto) Absolute Neuts (auto) Absolute Nucleated RBC Nucleated RBC % Platelet Estimate % Immature Plt Fraction Anisocytosis Macrocytosis [place] Cells Schistocytes Sodium Potassium Chloride Carbon Dioxide Anion Gap BUN Creatinine Estim Creat Clear Calc Estimated GFR Glucose POC Capillary Glucose 131 H 166 H Lactic Acid Calcium Magnesium Total Bilirubin AST ALT Alkaline Phosphatase Total Protein Albumin Nasal MRSA (PCR) Not detected 07/27/24 07/27/24 05:22 11:08 WBC 7.8 RBC 3.78 L Hgb 11.6 L Hct 37.8 MCV 100.0 MCH 30.7 MCHC 30.7 L RDW 17.7 H Plt Count 91 L MPV 12.2 H Immature Gran % (Auto) 0.5 Neut % (Auto) 75.4 H Lymph % (Auto) 8.0 L [place] % (Auto) 13.0 H Eos % (Auto) 2.7 Baso % (Auto) 0.4 Lymph # (Auto) 0.63 L [place] # (Auto) 1.0 H Eos # (Auto) 0.2 Baso # (Auto) 0.0 Abs Immat Gran (auto) 0.04 H Absolute Neuts (auto) 5.9 Absolute Nucleated RBC 0.060 H Nucleated RBC % 0.8 H Platelet Estimate Decreased % Immature Plt Fraction 9.3 Anisocytosis 1+ Macrocytosis 1+ [place] Cells 2+ Schistocytes None seen Sodium 146 H Potassium 4.1 Chloride 117 H Carbon Dioxide 20 L Anion Gap 9 BUN 35 H Creatinine 0.84 Estim Creat Clear Calc 42 Estimated GFR > 60 Glucose 133 H POC Capillary Glucose 129 H Lactic Acid 1.5 Calcium 8.9 Magnesium 2.2 Total Bilirubin 1.7 H AST 35 ALT 28 Alkaline Phosphatase 81 Total Protein 6.0 L Albumin 3.0 L Nasal MRSA (PCR) Quality VTE Prophylaxis VTE prophylaxis: mechanical ordered
--- NOTE | 2024-07-27 17:03 | PCOTNOTE ---
HOLD OT evaluation: discussed pt with KRISTINA Wang-- pt is unresponsive. HOLD OT evaluation.
[2024-07-27 22:30] LABS: Glucose Point of Care 151 mg/dl (65-105)
[2024-07-28] VITALS (12 sets, daily range): BP systolic 123–147; BP diastolic 55–113; PULSE 74–94; RESP 18–20; TEMP 35.7–37.7; O2SAT 86–99
[2024-07-28] MEDS: PIPERACILLN/TAZ 3.375GM/NS50ML 3.375 GM/50 ML BAG IVPB ×2 (05:01→12:36)
[2024-07-28 05:32] LABS: Basophils Percent Auto 0.4 % (0.2-1.2); Eosinophils Absolute Auto 0.2 K/mm3 (0-0.3); Eosinophils Percent Auto 2.5 % (0-4.4); Hematocrit 37.2 % (37.0-47.0); Hemoglobin 11.5 g/dL (12.0-15.0); Immature Granulocyte Absolute 0.07 K/mm3 (0.00-0.031); Immature Granulocyte Percent A 0.9 % (0-0.5); Immature Platelet Fraction Pct 7.7 % (0.9-11.2); Lymphocytes Absolute Auto 0.49 K/mm3 (0.9-3.2); Lymphocytes Percent Auto 6.5 % (18.3-44.2); Mean Corpuscular HGB Conc 30.9 g/dl (32-36); Mean Corpuscular Hemoglobin 30.3 pg (26-34); Mean Corpuscular Volume 97.9 fl (80-100); Mean Platelet Volume 11.8 fl (7.4-10.4); Monocytes Absolute Auto 0.9 K/mm3 (0.1-0.6); Monocytes Percent Auto 12.1 % (2.6-8.5); Neutrophils Absolute Auto 5.8 K/mm3 (1.3-6.7); Neutrophils Percent Auto 77.6 % (45.5-73.1); Nucleated Red Blood Cells Perc 0.8 % (0.0-0.2); Platelet Count Result 102 k/mm3 (150-375); Red Cell Distribution Width 17.8 % (11.5-14.5); White Blood Count 7.5 K/mm3 (4.5-10.0)
[2024-07-28 05:44] LABS: Alanine Aminotransferase 26 U/L (6-35); Alkaline Phosphatase 82 U/L (38-126); Anion Gap 6 mmol/L (4-12); Aspartate Amino Transferase 27 U/L (14-36); Bilirubin,Total 1.4 mg/dL (0.2-1.3); Blood Urea Nitrogen 34 mg/dL (7-17); Calcium 9.4 mg/dL (8.4-10.2); Carbon Dioxide 25 mmol/L (22-30); Chloride 118 mmol/L (98-107); Estimated CRCL calculation 50 ml/min; Estimated Glomerular Filt Rate > 60; Glucose 104 mg/dL (65-110); Magnesium 2.1 mg/dL (1.6-2.3); Potassium 4.3 mmol/L (3.4-5.0); Sodium 149 mmol/L (137-145)
[2024-07-28 07:32] LABS: Glucose Point of Care 134 mg/dl (65-105)
[2024-07-28 07:39] LABS: Chlamydia pneumoniae by PCR Not Detected
--- NOTE | 2024-07-28 08:12 | PCPTNOTE ---
Stopped orders 07/28/24- patient unresponsive 3 days in a row and unable to be evaluated. Will follow if patient becomes appropriate in the future.
[2024-07-28] MEDS: POTASSIUM CHLORIDE 20 MEQ PACKET (FOR LIQUID) PO (08:54)
[2024-07-28] MEDS: FERROUS SULFATE 325 MG TABLET DR PO (08:54)
[2024-07-28] MEDS: ENOXAPARIN 40 MG/0.4 ML SYRINGE SUB-Q (08:54)
[2024-07-28] MEDS: DOXYCYCLINE 100 MG/NS 100 ML 100 MG/100 ML BAG IVPB (08:55)
[2024-07-28] MEDS: PANTOPRAZOLE SODIUM IV 40 MG VIAL IV PUSH (08:55)
[2024-07-28] MEDS: polyethylene glycoL 3350 17 GM POWD.PACK PO (09:03)
--- NOTE | 2024-07-28 09:21 | PCOTNOTE ---
Attempted pt 3 days in a row and pt still remains unable to participate in therapy due to medical and cognitive status. Pt may transition to comfort care. Will d/c OT orders at this time. Please re-order should pt's condition improve.
[2024-07-28 11:46] LABS: Glucose Point of Care 122 mg/dl (65-105)
[2024-07-28 14:51] LABS: SARS-CoV-2 RNA PCR Negative (Negative)
--- NOTE | 2024-07-28 15:13 | PM.DS ---
DS: Admitting Diagnosis Discharge Date 07/28/24 Admitting Diagnosis altered LOC, hypothermia, sepsis DS: Discharge Diagnosis Discharge Diagnosis (1) Sepsis: Code(s): A41.9 - Sepsis, unspecified organism Status: Acute (2) Multifocal pneumonia: Code(s): J18.9 - Pneumonia, unspecified organism Status: Acute (3) Hypothermia: Code(s): T68.XXXA - Hypothermia, initial encounter Status: Acute DS: Summary Hospital Course Hospital Course: This is an 89 year old female patient with history of dementia, CKD, atrial fibrillation, breast cancer, diastolic congestive heart failure, HTN and iron deficiency anemia who was sent to ER from custodial by EMS for decreasing level of consciousness throughout the day. EMS reported that heart rate was as low as 35 on quality assurance monitor chassis and they gave atropine 1 mg IV push. Patient has DNR POLST form completed. In ER patient was found to be severely hypothermic with decreased WBC (though she usually runs on the low side of normal.) Patient is on Xarelto due to afib history and her bleeding times were noted to be elevated. CT of head is negative for acute intracranial bleeding. CXR appears to have multifocal pneumonia so patient was given 2 liters of IV fluid bolus and treated with vancomycin and Zosyn. Wang Hugger in place and her IV fluids were warmed. When getting warmer patient was responding more in ER. She has history of afib with slow ventricular response related to metoprolol. Her heart rate has also increased to normal range as temperature is improving. Patient was recently treated in the ER on 07/13/24 for fall with minor head injury and she was kept overnight in order to move from assisted living to custodial at that time. Tonight Flu/RSV/Covid were negative. Platelets noted to be mildly low at 97. Patient was started on broad spectrum antibiotics, and NG Tube was placed and patietn was started on tube feeding after discussing with daughter. After managing for 4 days, patient remained unresponsive and daughter decided to transition to comfort care and patient was transferred to facility with hospice. Topical management prior to comfort care -Altered mental status with severe hypothermia, depressed WBC of 3.7 and findings of multifocal pneumonia on CXR s/p IVF Continue antibiotics and monitor cultures CT head unremarkable Multifocal pneumonia CTA chest abdomen pelvis shows multifocal pneumonia involving right upper and middle lobe and small pleural effusions continue Zosyn and Doxycycline MRSA pending, monitor cultures monitor Bycytopenia Plts 91, Hb 11.4 Possible due to severe sepsis monitor Acute respiratory failure with hypoxemia ABG showed hypoxemia Start O2 therapy keep pulse ox above 94 Dehydration, hypernatremia, resolved Na 144 Protein energy malnutrition Patient unable to eat due to AMS NG tube and tube feeding started Hypothermia and Bradycardia likely from sepsis TSH wnl contieu above care daughter decided to transition to comfort care and was discharged to hospice facility Time Spent with Patient Time attestation: Total time spent providing and/or coordinating discharge services: DS: Data Data Completed and Pending Labs on day of discharge: Labs from last 24 hours 07/28/24 07/28/24 07/28/24 14:10 11:35 05:22 WBC 7.5 RBC 3.80 L Hgb 11.5 L Hct 37.2 MCV 97.9 MCH 30.3 MCHC 30.9 L RDW 17.8 H Plt Count 102 L MPV 11.8 H Immature Gran % (Auto) 0.9 H Neut % (Auto) 77.6 H Lymph % (Auto) 6.5 L [place] % (Auto) 12.1 H Eos % (Auto) 2.5 Baso % (Auto) 0.4 Lymph # (Auto) 0.49 L [place] # (Auto) 0.9 H Eos # (Auto) 0.2 Baso # (Auto) 0.0 Abs Immat Gran (auto) 0.07 H Absolute Neuts (auto) 5.8 Absolute Nucleated RBC 0.060 H Nucleated RBC % 0.8 H % Immature Plt Fraction 7.7 Sodium 149 H Potassium 4.3 Chloride 118 H Carbon Dioxide 25 Anion Gap 6 BUN 34 H Creatinine 0.70 Estim Creat Clear Calc 50 Estimated GFR > 60 Glucose 104 POC Capillary Glucose 122 H Calcium 9.4 Magnesium 2.1 Total Bilirubin 1.4 H AST 27 ALT 26 Alkaline Phosphatase 82 Total Protein 6.0 L Albumin 3.0 L C. pneumoniae DNA (PCR) SARS-CoV-2 RNA (RT-PCR) Negative 07/27/24 07/27/24 07/24/24 23:04 17:54 07:16 WBC RBC Hgb Hct MCV MCH MCHC RDW Plt Count MPV Immature Gran % (Auto) Neut % (Auto) Lymph % (Auto) [place] % (Auto) Eos % (Auto) Baso % (Auto) Lymph # (Auto) [place] # (Auto) Eos # (Auto) Baso # (Auto) Abs Immat Gran (auto) Absolute Neuts (auto) Absolute Nucleated RBC Nucleated RBC % % Immature Plt Fraction Sodium Potassium Chloride Carbon Dioxide Anion Gap BUN Creatinine Estim Creat Clear Calc Estimated GFR Glucose POC Capillary Glucose 134 H 151 H Calcium Magnesium Total Bilirubin AST ALT Alkaline Phosphatase Total Protein Albumin C. pneumoniae DNA (PCR) Not detected SARS-CoV-2 RNA (RT-PCR) Preliminary micro results at discharge 07/24/24 02:11 Blood Culture - Preliminary Blood 07/24/24 02:17 Blood Culture - Preliminary Blood Discharge Plan Discharge Attending physician on discharge: Tasha Vaz Consulting providers: Yee Ambrocio Discharging Clinician: Tasha Vaz Anticipated Discharge Date/Time: 07/28/24 15:12 Patient Disposition: Hospice - Medical Facility Activity: as tolerated Diet: as tolerated Patient Instructions: Rivaroxaban (By mouth), Heart Failure (GEN) Patient Language: Estonian Stand Alone Forms: General Discharge Information Discharge Medications: Continued ascorbic acid (vitamin C) 500 mg capsule, extended release 500 mg PO DAILY magnesium 200 mg tablet 400 mg PO HS omeprazole 20 mg capsule,delayed release(DR/EC) 20 mg PO DAILY Rx Instructions: TAKE 1 CAPSULE DAILY polyethylene glycol 3350 [Miralax] 17 gram Powder In Packet 17 g PO QAM Qty: 14 0RF acetaminophen 325 mg capsule 650 mg PO Q6H PRN (Reason: fever or pain) furosemide 20 mg tablet 20 mg PO DAILY Qty: 90 2RF metoprolol succinate [Toprol XL] 50 mg tablet extended release 24 hr 50 mg PO DAILY Qty: 90 0RF Xarelto 20 mg tablet 20 mg PO QPM Qty: 90 0RF Rx Instructions: must administer with evening meal donepezil 5 mg tablet 5 mg PO QHS Qty: 90 0RF ferrous sulfate 324 mg (65 mg iron) tablet,delayed release (DR/EC) 324 mg PO DAILY Qty: 90 2RF Rx Instructions: TAKE 1 TABLET BY MOUTH EVERY DAY potassium chloride 20 mEq packet 20 meq PO DAILY Qty: 100 3RF Date of admission: 07/24/24 04:21 Primary Care Provider: Paco Collins Admitting Provider: Chester Chavarria Attending physician on admission: Chester Chavarria Condition: Improved
[2024-07-28 16:28] LABS: Pneumococcal Antigen Urine NOT DETECTED
[2024-07-29 22:44] LABS: Source NASOPHARYNGEAL
[2024-07-30 20:13] LABS: Legionella pneumophila Ag Ur NOT DETECTED
== END 2024-07-28 18:00 | disposition hospice, inpatient (51) | DRG 871 ==
LOC: ANHED 04:32 → ANHIMU 05:00
PROVIDERS: Nurse Practitioner; Admitting Provider Hospitalist; Emergency Provider Emergency Medicine; PCP Family Medicine; Visit Provider Internal Medicine
DX: A41.9 Sepsis, unspecified organism (principal); J18.9 Pneumonia, unspecified organism; J96.01 Acute respiratory failure with hypoxia; I13.0 Hypertensive heart and chronic kidney disease with heart failure and stage 1 through stage 4 chronic kidney disease, or unspecified chronic kidney disease; I50.32 Chronic diastolic (congestive) heart failure; D61.818 Other pancytopenia; E87.0 Hyperosmolality and hypernatremia; E46 Unspecified protein-calorie malnutrition; I48.11 Longstanding persistent atrial fibrillation; N18.31 Chronic kidney disease, stage 3a; D50.9 Iron deficiency anemia, unspecified; F03.90 Unspecified dementia, unspecified severity, without behavioral disturbance, psychotic disturbance, mood disturbance, and anxiety; T68.XXXA Hypothermia, initial encounter; Z20.822 Contact with and (suspected) exposure to COVID-19; Z85.3 Personal history of malignant neoplasm of breast; Z11.52 Encounter for screening for COVID-19; Z79.01 Long term (current) use of anticoagulants; Z68.28 Body mass index [BMI] 28.0-28.9, adult
CPT/HCPCS: 36415; 36600; 70450; 71045; 71275; 74177; 80053; 80307; 81003; 82140; 82550; 82607; 82746; 82805; 82948; 83605; 83735; 84145; 84439; 84443; 84480; 85018; 85025; 85027; 85055; 85380; 85384; 85610; 85730; 87040; 87449; 87486; 87581; 87635; 87637; 87641; 87899; 93005; 93306; 96365; 96367; 99285; A9270; J0692; J1650; J1836; J2470; J2543; J3370; J7030; Q9967